=== PATIENT | female | born 1950 | race Caucasian/White ===

== ENCOUNTER 2017-09-05 11:22 | Outpatient (CLI) | payer MEDICARE ==
[2017-09-05 17:54] LABS: BASOPHILS # (AUTO) 0.1 10^3/uL (0.0-0.1); BASOPHILS % (AUTO) 1.2 %; EOSINOPHILS # (AUTO) 0.7 10^3/uL (0.0-0.7); EOSINOPHILS % (AUTO) 9.2 %; HCT - HEMATOCRIT 38.5 % (37.0-47.0); HGB - HEMOGLOBIN 13.2 g/dL (12.0-16.0); LYMPHOCYTES # (AUTO) 1.8 10^3/uL (1.5-3.5); LYMPHOCYTES % (AUTO) 25.6 %; MEAN CORPUSCULAR HEMOGLOBIN 30.9 pg (27.0-31.0); MEAN CORPUSCULAR HGB CONC 34.3 g/dL (32.0-36.0); MEAN CORPUSCULAR VOLUME 90.1 fL (81.0-99.0); MEAN PLATELET VOLUME 7.9 fL (7.9-10.8); MONOCYTES # (AUTO) 0.6 10^3/uL (0.0-1.0); MONOCYTES % (AUTO) 8.5 %; NEUTROPHILS % (AUTO) 55.5 %; NUCLEATED RED BLOOD CELLS AUTO 0.2 /100WBC; RED BLOOD COUNT 4.28 10^6/uL (4.20-5.40); RED CELL DISTRIBUTION WIDTH 15.7 % (12.0-15.0); UNCORRECTED WHITE BLOOD COUNT 7.2 x10^3/uL; WHITE BLOOD COUNT 7.2 x10^3/uL (4.8-10.8)
[2017-09-05 18:05] LABS: BILIRUBIN,TOTAL 0.7 mg/dL (0.2-1.0); BUN - BLOOD UREA NITROGEN 23 mg/dL (6-20); CALCIUM 9.7 mg/dL (8.5-10.3); CARBON DIOXIDE - CO2 28 mmol/L (21-32); CHLORIDE 95 mmol/L (101-111); CHOL/HDL RATIO 4.3 (<4.4); CHOLESTEROL 228 mg/dL; CREATININE 1.2 mg/dL (0.4-1.0); GFR - MDRD 45 (>89); GLUCOSE 122 mg/dL (70-100); HDL CHOLESTEROL 53 mg/dL; LDL/HDL RATIO 2.7 (<4.4); POTASSIUM 2.9 mmol/L (3.5-5.0); SODIUM 135 mmol/L (135-145); TOTAL PROTEIN 8.5 g/dL (6.7-8.2); TRIGLYCERIDES 171 mg/dL; VLDL CHOLESTEROL 34 mg/dL
== END 2017-09-05 11:23 | disposition home or self-care (01) ==
LOC: LAB.F 11:22
PROVIDERS: ATTEND Physician Assistant Medical
DX: E78.5 Hyperlipidemia, unspecified (principal); K21.9 Gastro-esophageal reflux disease without esophagitis
CPT/HCPCS: 36415; 80053; 80061; 85025

== ENCOUNTER 2017-11-15 18:00 | Outpatient (CLI) | payer MEDICARE ==
[2017-11-15 18:48] LABS: CALCIUM 9.4 mg/dL (8.5-10.3); CREATININE 1.2 mg/dL (0.4-1.0)
== END 2017-11-15 18:01 | disposition home or self-care (01) ==
LOC: LAB.R 18:00
PROVIDERS: ATTEND Physician Assistant Medical
DX: E87.6 Hypokalemia (principal)
CPT/HCPCS: 80048

== ENCOUNTER 2019-09-03 15:33 | Outpatient (CLI) | payer MEDICARE ==
--- NOTE | 2019-09-04 16:05 | XRAY Report ---
Reason: COUGH Procedure Date: 09/03/2019 Accession Number: [id number] / [id number] Procedure: WCP - Chest 2 View X-Ray CPT Code: 79728 Final Report FULL RESULT: EXAM: CHEST RADIOGRAPHY EXAM DATE: 09/03/2019 03:33 PM. CLINICAL HISTORY: COUGH. COMPARISON: XR CHEST PA AND LAT 04/08/2009 1:26 PM. TECHNIQUE: 2 views. FINDINGS: Lungs/Pleura: No evidence of lobar infiltrate. There is left costophrenic sulcus opacity which may represent small pleural effusion. No direct evidence of lung edema. There is no pneumothorax. Mediastinum: There is cardiomegaly. Other: There is bilateral shoulder degenerative disease. IMPRESSION: 1. There is cardiomegaly. 2. There is left costophrenic sulcus blunting which is suspicious for small effusion. 3. No evidence of lobar infiltrate. 4. There is no pneumothorax. RADIA
== END 2019-09-03 23:59 | disposition home or self-care (01) ==
LOC: DI.WCP 15:33
PROVIDERS: ATTEND Nurse Practitioner Family
DX: R05 Cough (principal); I51.7 Cardiomegaly
CPT/HCPCS: 71046

== ENCOUNTER 2019-09-06 18:33 | Outpatient (CLI) | payer MEDICARE | END 2019-09-06 23:59 | disposition short-term general hospital (02) | LOC: EMS 18:33 | PROVIDERS: ATTEND Surgery | DX: R06.02 Shortness of breath (principal) | CPT/HCPCS: A0425; A0427 ==

== ENCOUNTER 2019-09-22 14:19 | Outpatient (CLI) | payer MEDICARE ==
[2019-09-22 17:28] LABS: ALBUMIN 4.5 g/dL (3.2-5.5); ALBUMIN/GLOBULIN RATIO 1.3 (1.0-2.2); BILIRUBIN,TOTAL 0.7 mg/dL (0.2-1.0); CALCIUM 9.4 mg/dL (8.5-10.3); CREATININE 1.2 mg/dL (0.4-1.0)
[2019-09-22 17:47] LABS: BASOPHILS # (AUTO) 0.1 10^3/uL (0.0-0.1); BASOPHILS % (AUTO) 1.1 %; EOSINOPHILS # (AUTO) 0.2 10^3/uL (0.0-0.7); HGB - HEMOGLOBIN 11.4 g/dL (12.0-16.0); LYMPHOCYTES # (AUTO) 0.7 10^3/uL (1.5-3.5); MEAN CORPUSCULAR HEMOGLOBIN 29.2 pg (27.0-31.0); MEAN CORPUSCULAR HGB CONC 30.2 g/dL (32.0-36.0); MEAN CORPUSCULAR VOLUME 96.4 fL (81.0-99.0); MONOCYTES # (AUTO) 0.5 10^3/uL (0.0-1.0); MONOCYTES % (AUTO) 8.9 %; NEUTROPHILS # (AUTO) 3.8 10^3/uL (1.5-6.6); NEUTROPHILS % (AUTO) 71.8 %; PLT - PLATELET COUNT 313 10^3/uL (130-450); RED BLOOD COUNT 3.91 10^6/uL (4.20-5.40); RED CELL DISTRIBUTION WIDTH 17.9 % (12.0-15.0); WHITE BLOOD COUNT 5.3 x10^3/uL (4.8-10.8)
== END 2019-09-22 14:20 | disposition home or self-care (01) ==
LOC: LAB.S 14:19
PROVIDERS: ATTEND Nurse Practitioner Family
DX: I50.9 Heart failure, unspecified (principal)
CPT/HCPCS: 36415; 80053; 85025

== ENCOUNTER 2019-10-10 13:47 | Outpatient (CLI) | payer MEDICARE ==
[2019-10-10 17:59] LABS: CALCIUM 9.7 mg/dL (8.5-10.3); CREATININE 1.5 mg/dL (0.4-1.0)
== END 2019-10-10 13:48 | disposition home or self-care (01) ==
LOC: LAB.S 13:47
PROVIDERS: ATTEND Nurse Practitioner
DX: I42.8 Other cardiomyopathies (principal); E78.5 Hyperlipidemia, unspecified
CPT/HCPCS: 36415; 80048

== ENCOUNTER 2019-10-20 15:03 | Outpatient (CLI) | payer MEDICARE ==
[2019-10-20 18:19] LABS: CALCIUM 10.1 mg/dL (8.5-10.3); CREATININE 1.4 mg/dL (0.4-1.0)
== END 2019-10-20 15:04 | disposition home or self-care (01) ==
LOC: LAB.S 15:03
PROVIDERS: ATTEND Physician Assistant
DX: N28.9 Disorder of kidney and ureter, unspecified (principal)
CPT/HCPCS: 36415; 80048

== ENCOUNTER 2019-11-27 13:16 | Outpatient (CLI) | payer MEDICARE ==
[2019-11-27 17:41] LABS: BUN - BLOOD UREA NITROGEN 15 mg/dL (6-20); CALCIUM 9.7 mg/dL (8.5-10.3); CARBON DIOXIDE - CO2 23 mmol/L (21-32); CHLORIDE 108 mmol/L (101-111); CHOL/HDL RATIO 2.5 (<4.4); CHOLESTEROL 160 mg/dL; CREATININE 1.2 mg/dL (0.4-1.0); GFR - MDRD 45 (>89); GLUCOSE 101 mg/dL (70-100); HDL CHOLESTEROL 65 mg/dL; LDL CHOLESTEROL,CALCULATED 68 mg/dL; SODIUM 143 mmol/L (135-145); VLDL CHOLESTEROL 27 mg/dL
== END 2019-11-27 13:17 | disposition home or self-care (01) ==
LOC: LAB.S 13:16
PROVIDERS: ATTEND Internal Medicine
DX: E78.5 Hyperlipidemia, unspecified (principal)
CPT/HCPCS: 36415; 80048; 80061; 83721

== ENCOUNTER 2020-02-02 08:00 | Outpatient (CLI) | payer MEDICARE ==
[2020-02-02 14:34] LABS: ALBUMIN 3.9 g/dL (3.2-5.5); ALBUMIN/GLOBULIN RATIO 1.1 (1.0-2.2); ALKALINE PHOSPHATASE 57 IU/L (42-121); ALT ALANINE AMINOTRANSFERASE 11 IU/L (10-60); AST ASPARTATE AMINOTRANSFERASE 18 IU/L (10-42); BILIRUBIN,TOTAL 0.7 mg/dL (0.2-1.0); BUN - BLOOD UREA NITROGEN 35 mg/dL (6-20); CALCIUM 9.7 mg/dL (8.5-10.3); CARBON DIOXIDE - CO2 24 mmol/L (21-32); CHLORIDE 104 mmol/L (101-111); CHOL/HDL RATIO 2.9 (<4.4); CHOLESTEROL 133 mg/dL; CREATININE 1.6 mg/dL (0.4-1.0); GLUCOSE 119 mg/dL (70-100); HDL CHOLESTEROL 46 mg/dL; LDL CHOLESTEROL,CALCULATED 51 mg/dL; LDL/HDL RATIO 1.1 (<4.4); SODIUM 137 mmol/L (135-145); TOTAL PROTEIN 7.6 g/dL (6.7-8.2); VLDL CHOLESTEROL 36 mg/dL
== END 2020-02-02 23:59 | disposition home or self-care (01) ==
LOC: LAB.WCP 08:00
PROVIDERS: ATTEND Physician Assistant Medical
DX: I21.3 ST elevation (STEMI) myocardial infarction of unspecified site (principal)
CPT/HCPCS: 36415; 80053; 80061; 83721

== ENCOUNTER 2020-04-28 14:54 | Outpatient (CLI) | payer MEDICARE ==
--- NOTE | 2020-04-28 17:03 | DEXA Report ---
Reason: POSTMENOPAUSAL Procedure Date: 04/28/2020 Accession Number: [id number] / [id number] Procedure: DEX - Dexa Spine and/or Hip CPT Code: Final Report FULL RESULT: PROCEDURE: Dexa Spine and/or Hip INDICATIONS: POSTMENOPAUSAL TECHNIQUE: Dual energy x-ray absorptiometry (DXA) was performed on a [email or web address] System. Regions measured are the AP Spine, femoral neck, and if needed forearm. COMPARISON: None. FINDINGS: Lumbar Spine: Bone Mineral Density 1.485 g/cm/cm,T score 2.5, normal Left Hip: Bone Mineral Density 1.303 g/cm/cm,T score 2.3, normal Left Femoral Neck: Bone Mineral Density 1.315 g/cm/cm, T score 2.0, normal (T score greater or equal to -1.0: NORMAL) (T score from -1.1 to -2.4: OSTEOPENIA) (T score less than or equal to -2.5 to: OSTEOPOROSIS) Impression: 1. Normal bone mineral density. 2. No elevated fracture risk. Patients with diagnosis of osteoporosis or osteopenia should have regular bone mineral density assessment. For those eligible for Medicare, routine testing is allowed once every 2 years. Testing frequency can be increased for patients who have rapidly progressing disease or for those who are receiving medical therapy to restore bone mass. Reviewed by: Nita Pierce MD on 04/28/2020 5:01 PM PDT Approved by: Nita Pierce MD on 04/28/2020 5:01 PM PDT Station ID: [id number]
== END 2020-04-28 14:55 | disposition home or self-care (01) ==
LOC: DI 14:54
PROVIDERS: ATTEND Physician Assistant Medical
DX: Z78.0 Asymptomatic menopausal state (principal)
CPT/HCPCS: 77080

== ENCOUNTER 2020-06-27 10:46 | Outpatient (CLI) | payer MEDICARE | END 2020-06-27 10:47 | disposition critical access hospital (66) | LOC: EMS 10:46 | PROVIDERS: ATTEND Surgery | DX: R40.20 Unspecified coma (principal) | CPT/HCPCS: A0425; A0427 ==

== ENCOUNTER 2020-06-27 11:04 | Inpatient (IN) | payer MEDICARE ==
[2020-06-27] MEDS ORDERED: SODIUM CHLORIDE 0.9% 1,000 ML IV STA ×2 (11:18→11:29)
[2020-06-27] MEDS ORDERED: FLUMAZENIL 0.1 MG/1 ML 5 ML MDV IVP STA (11:24)
--- NOTE | 2020-06-27 11:27 | ED Physician Documentation ---
PD HPI ALTERED MENTAL STATUS - Stated complaint Stated Complaint: UNRESPONSIVE - Chief complaint Chief Complaint: Cardiac - History obtained from History obtained from: EMS - History of Present Illness Timing - onset: Today Timing - duration: Hours Timing - details: Gradual onset, Still present Quality / character: Unresponsive Associated symptoms: NVD Contributing factors: Recent illness. No: Anticoagulated, Diabetic Basline status: Alert and oriented X 3, Bedbound Similar symptoms before: Has not had sx before Recently seen: Not recently seen - Additional information Additional information: 70-year-old morbidly obese bedbound patient has developed nausea vomiting and diarrhea 2 days ago and last night was feeling some better and took her nighttime sleep medications and this morning she is not waking up. Medics arrived to find the patient with blood pressure in the 50s and the patient responsive only to hard sternal rub. The patient is breathing normally maintaining her airway but is unresponsive. She does take 2 mg of Xanax and temazepam at night for sleep. The indicates that she has had this recent illness her stool is black and she he has been giving her Pepto-Bismol. She has not had prior incident of GI bleeding to his knowledge. She has had a prior severe illness related to a blood draw 10 years ago that resulted in a se ptic infection. She took some time to recover from that and has never fully recovered. She was last seen by her residential caregiver and has not had blood drawn for about 1 year. She had a stent placed about 11 months ago at [facility]. Review of Systems Unable to obtain: Unresponsive Constitutional: denies: Fever Nose: denies: Congestion Cardiac: denies: Chest pain / pressure Respiratory: denies: Dyspnea, Cough GI: reports: Abdominal Pain, Nausea, Vomiting, Diarrhea, Bloody / black stool : denies: Dysuria, Frequency PD PAST MEDICAL HISTORY - Present Medications Home Medications: Ambulatory Orders Medication Instructions Recorded Confirmed Calcium Carbonate [Calcium] 1 tab PO DAILY 01/19/14 08/07/16 Cholecalciferol (Vitamin D3) 2,000 unit PO DAILY 01/19/14 08/07/16 [Vitamin D-3] Cinnamon Bark [Cinnamon] 500 mg PO BID 01/19/14 08/07/16 Cyanocobalamin (Vitamin B-12) 50 mcg PO DAILY 01/19/14 08/07/16 [Vitamin B-12] Flaxseed Oil 1 cap PO DAILY 01/19/14 08/07/16 Lactobacillus Combo No.6 1 each PO DAILY 01/19/14 08/07/16 [Probiotic Complex] Multivitamin [Multivitamins] 1 each PO DAILY 01/19/14 08/07/16 [place]-3 Fatty Acids/Fish Oil [Fish 1 each PO DAILY 01/19/14 08/07/16 Oil Softgel] Pantoprazole Sodium 40 mg PO DAILY 01/19/14 08/07/16 Propranolol [Inderal] 60 mg PO BID 01/19/14 08/07/16 Red Yeast Rice 600 mg PO DAILY 01/19/14 08/07/16 Temazepam 30 mg PO HS 01/19/14 08/07/16 Topiramate [Topamax] 25 mg PO BID 01/19/14 08/07/16 Verapamil HCl [Verapamil ER] 120 mg PO BID 01/19/14 08/07/16 Diclofenac Sodium [Voltaren] 1 drop TOP QID PRN 07/20/14 08/07/16 - Allergies Allergies/Adverse Reactions: Allergies Allergy/AdvReac Type Severity Reaction Status Date / Time No Known Drug Allergies Allergy Verified 06/27/20 11:17 PD ED PE NORMAL - Vitals Vital signs reviewed: Yes (normal ) - General General: Other (obese pale appearing female sleeping peacefully gives a grimmace to sternal rub and opens eyes to voice after administration of romazicon) - HEENT HEENT: Atraumatic, PERRL, EOMI - Cardiac Cardiac: RRR, No murmur - Respiratory Respiratory: No respiratory distress, Clear bilaterally - Abdomen Abdomen: Normal bowel sounds, Soft, Non tender - Rectal Rectal: Other (normal sphincter tone black stool is guiac positive) - Back Back: No CVA TTP - Derm Derm: Normal color, Warm and dry, No rash - Extremities Extremities: No deformity, No edema - Neuro Neuro: Other (unresponsive puplis reactive respritory drive intact ) Results - Vitals Vitals: Vital Signs - 24 hr 06/27/20 06/27/20 06/27/20 11:08 11:09 11:15 Temperature 35.4 C L Heart Rate 61 53 L 62 Respiratory 17 18 Rate Blood Pressure 102/63 102/63 102/63 O2 Saturation 100 99 100 06/27/20 06/27/20 06/27/20 11:19 11:30 11:36 Temperature Heart Rate 60 63 64 Respiratory 18 18 17 Rate Blood Pressure 102/63 118/86 H 67/38 L O2 Saturation 100 100 100 06/27/20 06/27/20 06/27/20 11:38 11:39 11:43 Temperature 34.5 C L Heart Rate 62 62 63 Respiratory 18 18 21 Rate Blood Pressure 70/33 L 70/33 L 68/33 L O2 Saturation 100 100 100 06/27/20 06/27/20 06/27/20 11:45 11:47 11:50 Temperature 34.4 C L 34.5 C L Heart Rate 63 66 65 Respiratory 19 20 19 Rate Blood Pressure 68/33 L 71/38 L 70/36 L O2 Saturation 100 100 100 06/27/20 06/27/20 06/27/20 11:53 11:55 11:56 Temperature 34.5 C L 34.5 C L 34.5 C L Heart Rate 64 64 60 Respiratory 19 19 22 Rate Blood Pressure 68/31 L 72/31 L 72/31 L O2 Saturation 100 100 100 06/27/20 06/27/20 06/27/20 12:00 12:05 12:10 Temperature 34.5 C L 34.5 C L 34.5 C L Heart Rate 67 68 65 Respiratory 17 20 19 Rate Blood Pressure 85/47 L 76/41 L 72/36 L O2 Saturation 100 100 100 06/27/20 06/27/20 06/27/20 12:11 12:15 12:30 Temperature 34.5 C L 34.5 C L Heart Rate 66 65 71 Respiratory 18 18 20 Rate Blood Pressure 76/41 L 75/36 L 70/41 L O2 Saturation 100 100 06/27/20 06/27/20 06/27/20 12:33 12:35 12:39 Temperature 34.5 C L 34.5 C L 34.5 C L Heart Rate 65 65 Respiratory 18 19 Rate Blood Pressure 75/41 L 79/45 L O2 Saturation 100 100 06/27/20 06/27/20 12:44 12:45 Temperature 34.5 C L 34.6 C L Heart Rate 65 64 Respiratory 19 19 Rate Blood Pressure 79/42 L 79/41 L O2 Saturation 100 100 Oxygen O2 Source Non-rebreather mask - EKG (time done) 1114 Rate: Rate (enter#) (62) Intervals: Prolonged [place] Ischemia: Q waves (consistent with prior inferior and anterior infarts) Other comments: Other comments (subtle ST elevation in II, III and aVf) Compare to prior EKG: Old EKG unavailable Computer interpretation: Agree with computer - Labs Labs: Laboratory Tests 06/27/20 06/27/20 06/27/20 11:20 11:20 11:33 WBC 8.3 RBC 1.66 L Hgb 4.2 L* Hct 14.6 L* MCV 88.0 MCH 25.3 L MCHC 28.8 L RDW 19.8 H Plt Count 223 MPV 10.0 Neut # (Auto) 6.7 H Lymph # (Auto) 0.9 L [place] # (Auto) 0.7 Eos # (Auto) 0.0 Baso # (Auto) 0.0 Absolute Nucleated RBC 0.00 Nucleated RBC % 0.0 Sodium 137 Potassium 5.4 H Chloride 105 Carbon Dioxide 17 L Anion Gap 15.0 H BUN 70 H Creatinine 2.3 H Estimated GFR (MDRD) 21 L Glucose 104 H Lactic Acid Calcium 8.9 Total Bilirubin 0.5 AST 107 H ALT 125 H Alkaline Phosphatase 35 L Total Protein 5.3 L Albumin 2.8 L Globulin 2.5 Albumin/Globulin Ratio 1.1 Lipase 29 TSH Urine Color YELLOW Urine Clarity HAZY Urine pH 5.5 Ur Specific [place] 1.015 Urine Protein NEGATIVE Urine Glucose (UA) NEGATIVE Urine Ketones NEGATIVE Urine Occult Blood NEGATIVE Urine Nitrite NEGATIVE Urine Bilirubin NEGATIVE Urine Urobilinogen 0.2 (NORMAL) Ur Leukocyte Esterase LARGE H Urine RBC 0-5 Urine WBC 4-5 Urine WBC Clumps PRESENT Ur Epithelial Cells RARE Renal Tubular Ur Squamous Epith Cells RARE Squamous Amorphous Sediment Marked Urine Bacteria Many H Urine Casts 6-10 Hyaline Casts Ur Microscopic Review INDICATED Urine Culture Comments INDICATED Stl Occult Blood (IFOB) Salicylates < 6.0 Urine Opiates Screen NEGATIVE Ur Oxycodone Screen NEGATIVE Urine Methadone Screen NEGATIVE Ur Propoxyphene Screen NEGATIVE Acetaminophen < 10 L Ur Barbiturates Screen NEGATIVE Ur Tricyclics Screen NEGATIVE Ur Phencyclidine Scrn NEGATIVE Ur Amphetamine Screen NEGATIVE U Methamphetamines Scrn NEGATIVE U Benzodiazepines Scrn POSITIVE H Urine Cocaine Screen NEGATIVE U Cannabinoids Screen NEGATIVE Ethyl Alcohol < 5.0 Blood Type Blood Type Recheck Antibody Screen Crossmatch IS Only 06/27/20 06/27/20 06/27/20 11:40 11:40 11:51 WBC RBC Hgb Hct MCV MCH MCHC RDW Plt Count MPV Neut # (Auto) Lymph # (Auto) [place] # (Auto) Eos # (Auto) Baso # (Auto) Absolute Nucleated RBC Nucleated RBC % Sodium Potassium Chloride Carbon Dioxide Anion Gap BUN Creatinine Estimated GFR (MDRD) Glucose Lactic Acid 3.3 H* Calcium Total Bilirubin AST ALT Alkaline Phosphatase Total Protein Albumin Globulin Albumin/Globulin Ratio Lipase TSH 1.29 Urine Color Urine Clarity Urine pH Ur Specific [place] Urine Protein Urine Glucose (UA) Urine Ketones Urine Occult Blood Urine Nitrite Urine Bilirubin Urine Urobilinogen Ur Leukocyte Esterase Urine RBC Urine WBC Urine WBC Clumps Ur Epithelial Cells Ur Squamous Epith Cells Amorphous Sediment Urine Bacteria Urine Casts Ur Microscopic Review Urine Culture Comments Stl Occult Blood (IFOB) Salicylates Urine Opiates Screen Ur Oxycodone Screen Urine Methadone Screen Ur Propoxyphene Screen Acetaminophen Ur Barbiturates Screen Ur Tricyclics Screen Ur Phencyclidine Scrn Ur Amphetamine Screen U Methamphetamines Scrn U Benzodiazepines Scrn Urine Cocaine Screen U Cannabinoids Screen Ethyl Alcohol Blood Type A POSITIVE Blood Type Recheck Antibody Screen NEGATIVE Crossmatch IS Only See Detail 06/27/20 06/27/20 11:52 12:50 WBC RBC Hgb Hct MCV MCH MCHC RDW Plt Count MPV Neut # (Auto) Lymph # (Auto) [place] # (Auto) Eos # (Auto) Baso # (Auto) Absolute Nucleated RBC Nucleated RBC % Sodium Potassium Chloride Carbon Dioxide Anion Gap BUN Creatinine Estimated GFR (MDRD) Glucose Lactic Acid Calcium Total Bilirubin AST ALT Alkaline Phosphatase Total Protein Albumin Globulin Albumin/Globulin Ratio Lipase TSH Urine Color Urine Clarity Urine pH Ur Specific [place] Urine Protein Urine Glucose (UA) Urine Ketones Urine Occult Blood Urine Nitrite Urine Bilirubin Urine Urobilinogen Ur Leukocyte Esterase Urine RBC Urine WBC Urine WBC Clumps Ur Epithelial Cells Ur Squamous Epith Cells Amorphous Sediment Urine Bacteria Urine Casts Ur Microscopic Review Urine Culture Comments Stl Occult Blood (IFOB) POSITIVE A Salicylates Urine Opiates Screen Ur Oxycodone Screen Urine Methadone Screen Ur Propoxyphene Screen Acetaminophen Ur Barbiturates Screen Ur Tricyclics Screen Ur Phencyclidine Scrn Ur Amphetamine Screen U Methamphetamines Scrn U Benzodiazepines Scrn Urine Cocaine Screen U Cannabinoids Screen Ethyl Alcohol Blood Type Blood Type Recheck A POSITIVE Antibody Screen Crossmatch IS Only Procedures - IVC sono (time) 1128 Bedside IVC sono: IVC measures (cm) (0.88), IVC collapsed c insp (cm) (complete), Dehydration (est 2 liter deficit after 500ml is in) PD MEDICAL DECISION MAKING - ED course Complexity details: reviewed old records, reviewed results, re-evaluated patient, considered differential, d/w family, d/w toy consultant ([facility] surgery recommends admission to the CCU and scoping today. ) ED course: 70-year-old female found unresponsive today is pale and hypotensive with guaiac positive stool and a profoundly low H&H. She is resuscitated in the emergency department with saline and O- blood is transfused. She is given a dose of Romazicon here in the emergency department and she does respond to this with eye opening and interaction. The case is discussed with the surgeon he recommends admission for scoping today. Her blood pressure is soft throughout her stay here in the emergency department she arrives with a blood pressure of 53 she has improvement to in the 70s and up to 114 with the first liter of saline blood pressure drops back into the 70s and she is administered the O- blood with a rise up into the upper 70s.Dr. Dominguez is consulted in the case and recommends admission to the intensive care unit and Dr. Zhu has indicated he would like to scope the patient today. The patient meets criteria for sepsis by vitals but appears to be ill with a GI bleed and her source of infection potentially being urine with bacteria in a cath specimen without leukocytes in the urine. Departure - Departure Disposition: 66 [facility] DC/Xfer Clinical Impression: GI bleeding Qualifiers: GI bleed type/associated pathology: melena Qualified Code(s): K92.1 - Melena Condition: Critical
[2020-06-27 11:35] LABS: BASOPHILS % (AUTO) 0.1 %; MEAN CORPUSCULAR HEMOGLOBIN 25.3 pg (27.0-31.0)
[2020-06-27 11:43] LABS: ACETAMINOPHEN < 10 ug/mL (10-30); ALBUMIN 2.8 g/dL (3.2-5.5); ALBUMIN/GLOBULIN RATIO 1.1 (1.0-2.2); ALKALINE PHOSPHATASE 35 IU/L (42-121); ALT ALANINE AMINOTRANSFERASE 125 IU/L (10-60); AST ASPARTATE AMINOTRANSFERASE 107 IU/L (10-42); BILIRUBIN,TOTAL 0.5 mg/dL (0.2-1.0); BUN - BLOOD UREA NITROGEN 70 mg/dL (6-20); CALCIUM 8.9 mg/dL (8.5-10.3); CARBON DIOXIDE - CO2 17 mmol/L (21-32); CHLORIDE 105 mmol/L (101-111); CREATININE 2.3 mg/dL (0.4-1.0); GLUCOSE 104 mg/dL (70-100); LIPASE 29 U/L (22-51); SALICYLATE < 6.0 mg/dL; SODIUM 137 mmol/L (135-145); TOTAL PROTEIN 5.3 g/dL (6.7-8.2)
[2020-06-27 11:45] LABS: EOSINOPHILS % (AUTO) 0.1 %; LYMPHOCYTES # (AUTO) 0.9 10^3/uL (1.5-3.5); LYMPHOCYTES % (AUTO) 10.8 %; MEAN CORPUSCULAR HGB CONC 28.8 g/dL (32.0-36.0); MONOCYTES # (AUTO) 0.7 10^3/uL (0.0-1.0); NEUTROPHILS # (AUTO) 6.7 10^3/uL (1.5-6.6); NEUTROPHILS % (AUTO) 80.5 %; PLT - PLATELET COUNT 223 10^3/uL (130-450); RED BLOOD COUNT 1.66 10^6/uL (4.20-5.40); RED CELL DISTRIBUTION WIDTH 19.8 % (12.0-15.0); WHITE BLOOD COUNT 8.3 x10^3/uL (4.8-10.8)
[2020-06-27 12:00] LABS: HGB - HEMOGLOBIN 4.2 g/dL (12.0-16.0)
[2020-06-27 12:00] LABS: MUDS CUTOFF CONCENTRATIONS CUTOFF CONC BELOW:
[2020-06-27 12:02] LABS: BILIRUBIN,URINE NEGATIVE (NEGATIVE); GLUCOSE, URINE (UA) NEGATIVE (NEGATIVE); KETONES,URINE (UA) NEGATIVE (NEGATIVE); LEUKOCYTE ESTERASE, URINE LARGE (NEGATIVE); NITRITE,URINE NEGATIVE (NEGATIVE); OCCULT BLOOD,URINE NEGATIVE (NEGATIVE); PH,URINE 5.5 PH (5.0-7.5); PROTEIN,URINE NEGATIVE (NEGATIVE); UROBILINOGEN,URINE 0.2 (NORMAL) E.U./dL (NORMAL)
--- NOTE | 2020-06-27 12:17 | XRAY Report ---
PROCEDURE: Chest 1 View X-Ray INDICATIONS: chest pain TECHNIQUE: One view of the chest was acquired. COMPARISON: 09/03/19 FINDINGS: Surgical changes and devices: None. Lungs and pleura: On the supine study, no large pneumothorax or large pleural effusions can be seen. No focal infiltrates are detected. Low lung volumes can be seen, causing a crowded appearance to t he lung markings. Mediastinum: The aorta is prominent and tortuous. The cardiac contours are mildly enlarged. Bones and chest wall: No suspicious bony lesions. Age-appropriate degenerative changes are seen. Mild dextroconvex scoliotic curvature is seen. Overlying soft tissues appear unremarkable. IMPRESSION: Mild cardiomegaly, without an additional significant abnormality seen on this supine plain film. Reviewed by: Bharathi Schultz MD on 06/27/2020 11:15 AM OMAR Approved by: Bharathi Schultz MD on 06/27/2020 11:15 AM OMAR Station ID: [id number]
[2020-06-27 12:21] LABS: CLARITY,URINE HAZY (CLEAR)
[2020-06-27 12:27] LABS: AMORPHOUS SEDIMENT,UR Marked /LPF; BACTERIA,URINE Many /HPF (None Seen); EPITHELIAL CELLS,UR RARE Renal Tubular /HPF (<= Few); RBC,URINE 0-5 /HPF (0-5); SQUAMOUS EPITHELIAL CELL,UR RARE Squamous (<= Few); WBC CLUMPS,URINE PRESENT
[2020-06-27 12:28] LABS: CASTS, URINE 6-10 Hyaline Casts /LPF
[2020-06-27 12:30] LABS: AMPHETAMINE SCREEN,URINE NEGATIVE (NEGATIVE); BENZODIAZEPINES SCREEN, URINE POSITIVE (NEGATIVE); COCAINE SCREEN URINE NEGATIVE (NEGATIVE); METHADONE SCREEN, URINE NEGATIVE (NEGATIVE); METHAMPHETAMINES SCREEN, URINE NEGATIVE (NEGATIVE); OPIATE SCREEN, URINE NEGATIVE (NEGATIVE); OXYCODONE SCREEN, URINE NEGATIVE (NEGATIVE); PROPOXYPHENE SCREEN, URINE NEGATIVE (NEGATIVE); TRICYCLIC ANTIDEPRESSANT,URINE NEGATIVE (NEGATIVE)
[2020-06-27] MEDS ORDERED: ONDANSETRON 4 MG/2 ML VIAL IVP PRN (12:52)
--- NOTE | 2020-06-27 12:58 | CONSULTATION NOTE ---
Referring Provider Name of Referring Provider:: Dr. Shameka Pradhan MD Consult Date: 06/27/20 Chief Complaint - Chief Complaint Chief Complaint: Hemorrhagic shock and gastrointestinal bleeding History of Present Illness - Admitted From Admitted From:: HOME - History Obtained From Records Reviewed: EMR History obtained from: Exam Limitations: Patient minimally responsive - History of Present Illness HPI Comment/Other: 70-year-old female with history of coronary artery disease status post relatively recent cardiac stenting to the mid LAD. On dual antiplatelet therapy. Patient is minimally ambulatory, superobese and mostly bedbound. Cared for by who reported the patient had been unresponsive this a.m. after having taken her sedatives. Seen in ER with hemoglobin of 8 emergently transfused and called for consultation. Historically noted for ulcerations. Currently not on any proton pump inhibition. History - Past Medical History Cardiovascular: reports: Hypertension, High cholesterol, Coronary artery disease, Peripheral Vascular Disease, [place] Respiratory: reports: None Neuro: reports: None GI: reports: GERD HEENT: reports: Chronic vision loss, Other Psych: reports: Depression, Anxiety Derm: reports: None - Past Surgical History Cardiovascular: reports: Coronary stent Meds/Allgy - Home Medications Home Medications: Ambulatory Orders Medication Instructions Recorded Confirmed Calcium Carbonate [Calcium] 1 tab PO DAILY 01/19/14 08/07/16 Cholecalciferol (Vitamin D3) 2,000 unit PO DAILY 01/19/14 08/07/16 [Vitamin D-3] Cinnamon Bark [Cinnamon] 500 mg PO BID 01/19/14 08/07/16 Cyanocobalamin (Vitamin B-12) 50 mcg PO DAILY 01/19/14 08/07/16 [Vitamin B-12] Flaxseed Oil 1 cap PO DAILY 01/19/14 08/07/16 Lactobacillus Combo No.6 1 each PO DAILY 01/19/14 08/07/16 [Probiotic Complex] Multivitamin [Multivitamins] 1 each PO DAILY 01/19/14 08/07/16 [place]-3 Fatty Acids/Fish Oil [Fish 1 each PO DAILY 01/19/14 08/07/16 Oil Softgel] Pantoprazole Sodium 40 mg PO DAILY 01/19/14 08/07/16 Propranolol [Inderal] 60 mg PO BID 01/19/14 08/07/16 Red Yeast Rice 600 mg PO DAILY 01/19/14 08/07/16 Temazepam 30 mg PO HS 01/19/14 08/07/16 Verapamil HCl [Verapamil ER] 120 mg PO BID 01/19/14 08/07/16 Diclofenac Sodium [Voltaren] 1 drop TOP QID PRN 07/20/14 08/07/16 ALPRAZolam [Alprazolam] 1 mg PO BID 06/27/20 Atorvastatin Calcium 80 mg PO DAILY 06/27/20 Carvedilol 12.5 mg PO BID 06/27/20 Clopidogrel [Plavix] 75 mg PO DAILY 06/27/20 Furosemide 40 mg PO DAILY 06/27/20 Losartan Potassium 25 mg PO DAILY 06/27/20 Meloxicam 7.5 mg PO BID 06/27/20 Potassium Chloride 20 meq PO BID 06/27/20 Pregabalin [Lyrica] 0 mg PO BID 06/27/20 Topiramate 50 mg PO BID 06/27/20 tiZANidine [Zanaflex] 4 mg PO TID 06/27/20 - Allergies Allergies/Adverse Reactions: Allergies Allergy/AdvReac Type Severity Reaction Status Date / Time No Known Drug Allergies Allergy Verified 06/27/20 11:17 Exam - Vital Signs Reviewed Vital Signs: Yes Vital Signs: Vital Signs x48h Temp Pulse Resp BP Pulse Ox 06/27/20 12:54 34.6 C L 63 18 78/43 L 06/27/20 12:45 34.6 C L 64 19 79/41 L 06/27/20 12:44 34.5 C L 65 19 79/42 L 06/27/20 12:39 34.5 C L 65 19 79/45 L 06/27/20 12:35 34.5 C L 65 18 75/41 L 06/27/20 12:33 34.5 C L 06/27/20 12:30 71 20 70/41 L 06/27/20 12:15 34.5 C L 65 18 75/36 L 06/27/20 12:11 34.5 C L 66 18 76/41 L 06/27/20 12:10 34.5 C L 65 19 72/36 L 06/27/20 12:05 34.5 C L 68 20 76/41 L 06/27/20 12:00 34.5 C L 67 17 85/47 L 06/27/20 11:56 34.5 C L 60 22 72/31 L 06/27/20 11:55 34.5 C L 64 19 72/31 L 06/27/20 11:53 34.5 C L 64 19 68/31 L 06/27/20 11:50 34.5 C L 65 19 70/36 L 06/27/20 11:47 34.4 C L 66 20 71/38 L 06/27/20 11:45 63 19 68/33 L 06/27/20 11:43 63 21 68/33 L 06/27/20 11:39 34.5 C L 62 18 70/33 L 06/27/20 11:38 62 18 70/33 L 06/27/20 11:36 64 17 67/38 L 06/27/20 11:30 63 18 118/86 H 06/27/20 11:19 60 18 102/63 06/27/20 11:15 62 18 102/63 06/27/20 11:09 53 L 102/63 99 06/27/20 11:08 35.4 C L 61 17 102/63 100 - Physical Exam General Appearance: positive: Moderate distress, Severe distress, Other (Morbidly obese female in distress) Eyes Bilateral: positive: Normal inspection, PERRL, EOMI ENT: positive: ENT inspection nml Neck: positive: Nml inspection Respiratory: positive: No respiratory distress, Breath sounds nml. negative: Wheezes, Rales, Rhonchi Cardiovascular: positive: Regular rate & rhythm Abdomen: positive: Non-tender, No distention. negative: Tenderness, Guarding, Rebound Rectal: positive: Other (Deferred given planned endoscopy and ER examination) Skin: positive: Pallor Extremities: positive: Non-tender, Nml appearance Neurologic/Psychiatric: positive: Disoriented to person, Disoriented to place, Disoriented to time, Weakness Conclusion/Plan - Diagnosis Diagnosis: 1. Hemorrhagic/hypovolemic shock. 2. Acute on chronic blood loss anemia. 3. Gastrointestinal bleeding. 4. Coronary artery disease on dual antiplatelet therapy. 5. Morbid obesity. 6. Altered mental status, unknown etiology - Plan Plan: 1. Admit to ICU, with hospitalist service 2. [Place central venous triple-lumen catheter for resuscitation] 3. [Place arterial line for close hemodynamic monitoring] 4. Plan upper endoscopy to evaluate source, will consider colonoscopy however given urgency of intervention will defer bowel prep at this time 5. Aggressive resuscitation 6. Agree with CT of the head to evaluate for altered sensorium as well as CT of the abdomen noncontrast in the setting of acute potentially on chronic renal failure for an occult source of gastrointestinal bleed 7. Bowel rest and IV fluids 8. PPI infusion and consider Carafate pending results 9. Hold dual antiplatelet therapy for the moment given the significance and profound nature of the patient's hemorrhagic shock and acute blood loss anemia to hemoglobin of 4 - Lab Results Lab results reviewed: Yes Jairo Bones: 06/28/20 08:18 06/28/20 04:45
[2020-06-27] MEDS ORDERED: FLUMAZENIL 0.1 MG/1 ML 5 ML MDV IVP ONE (13:54)
[2020-06-27] MEDS ORDERED: SODIUM CHLORIDE 0.9% 500 ML IV ONE (14:11)
[2020-06-27] MEDS: DEXTROSE 5%-0.9% NACL 1,000 ML IV SCH (14:12)
[2020-06-27] MEDS ORDERED: FLUMAZENIL 0.1 MG/1 ML 5 ML MDV IVP SCH ×2 (14:22→14:45)
[2020-06-27] MEDS ORDERED: DOPamine 800 MG/500 ML 800 MG/500 ML BAG IV SCH (15:00)
--- NOTE | 2020-06-27 16:34 | XRAY Report ---
PROCEDURE: Chest for Line Placement INDICATIONS: Verify line placement TECHNIQUE: One view of the chest was acquired. COMPARISON: 06/27/2020, 09/03/2019 FINDINGS: Surgical changes and devices: A right-sided central line is seen, with the tip overlying the superior aspect of the superior vena cava, 6 m above the cavoatrial junction. Lungs and pleura: An incomplete inspiratory result is noted, with low lung volumes and crowding of t he vascular markings. On the supine study, no large pneumothorax or large pleural effusions can be se en. No focal infiltrates are detected. Generalized interstitial prominence is seen. Mediastinum: The aorta is prominent and tortuous. The cardiac contours are mildly enlarged. Bones and chest wall: No suspicious bony lesions. Age-appropriate degenerative changes are seen. O verlying soft tissues appear unremarkable. IMPRESSION: The tip of the right-sided central line is seen overlying the superior aspect of the superior vena ca va. Reviewed by: Bharathi Schultz MD on 06/27/2020 3:33 PM AKDT Approved by: Bharathi Schultz MD on 06/27/2020 3:33 PM AKDT Station ID: [id number]
[2020-06-27] MEDS: SODIUM CHLORIDE FLUSH 0.9% 10 ML SYRINGE IVP SCH (16:54)
--- NOTE | 2020-06-27 17:22 | OPERATIVE REPORT ---
Operative Report - General Admit Date: 06/27/20 Planned Procedure: Preoperative diagnosis: 1. Hypovolemic shock 2. Upper GI bleed, suspected 3. Suspicion for sepsis 4. Hematochezia/Melena 5. Need for additional IV access PLANNED Procedures performed: 1. Ultrasound-guided right internal jugular venous access 2. Radiographic-confirmed central venous catheter placement at the atriocaval junction 3. Triple-lumen catheter placement in the right internal jugular Pre-Op Diagnosis: Hypovolemic/hemorrhagic shock, gastrointestinal bleed, need for CV access Procedure Performed: Postoperative diagnosis: 1. Hypovolemic shock 2. Upper GI bleed, suspected 3. Suspicion for sepsis 4. Hematochezia/Melena 5. Need for additional IV access 6. Successful placement of right internal jugular triple-lumen catheter 7. Profound hypovolemia with relative collapse of the internal jugular. Procedures performed: 1. Ultrasound-guided right internal jugular venous access 2. Radiographic-confirmed central venous catheter placement at the atriocaval junction 3. Triple-lumen catheter placement in the right internal jugular Post Op Diagnosis: Same, successful placement of right internal jugular central venous cath - Procedure Note Primary Surgeon: Marko Anesthesia Provider: [place] Anesthesia Technique: Local Indications: See EMR/Surgical Consultation. Findings: INTRAOPERATIVE FINDINGS: Right internal jugular was noted ultrasonographically. It was passed for the guidewire without any complication, which was confirmed by ultrasound imaging. The catheter ultimately was placed at the junction between the SVC and the atria of the atriocaval junction without any complication as confirmed by postoperative x-ray. Again, postoperative radiography confirmed placement. Patient tolerated the procedure well for which there was no complication. The port flushed easily, it aspirated well across all 3 ports. Patient was significantly hypovolemic and in need of aggressive resuscitation as noted by the relative collapse of the internal jugular even in steep Trendelenburg. Complications: None - Other Other Information/Narrative: INTRAOPERATIVE FINDINGS: Right internal jugular was noted ultrasonographically. It was passed for the guidewire without any complication, which was confirmed by ultrasound imaging. The catheter ultimately was placed at the junction between the SVC and the atria of the atriocaval junction without any complication as confirmed by postoperative x-ray. Again, postoperative radiography confirmed placement. Patient tolerated the procedure well for which there was no complication. The port flushed easily, it aspirated well across all 3 ports. Patient was significantly hypovolemic and in need of aggressive resuscitation as noted by the relative collapse of the internal jugular even in steep Trendelenburg. Preoperative diagnosis: 1. Hypovolemic shock 2. Upper GI bleed, suspected 3. Suspicion for sepsis 4. Hematochezia/Melena 5. Need for additional IV access Postoperative diagnosis: 1. Hypovolemic shock 2. Upper GI bleed, suspected 3. Suspicion for sepsis 4. Hematochezia/Melena 5. Need for additional IV access 6. Successful placement of right internal jugular triple-lumen catheter 7. Profound hypovolemia with relative collapse of the internal jugular. PROCEDURAL REPORT The patient was prepped for Right neck and chest in the usual sterile fashion. Time out was called and agreed to by all in the room. Please note secondary to the urgency of the procedure verbal informed consent was obtained and witnessed by nurse attendant in room. The ultrasound probe was draped with a sterile sleeve, and internal jugular was noted. The patient was placed in Trendelenburg, and the vein was cannulated using the introducer needle without any complication. There was venous return. The wire was easily passed through the introducer needle without any complication. The wire placement was confirmed Ultrasonographically. At this time, the wire was secured after the needle was removed. Thereafter, we dilated the tract after having incise the skin to accommodate. This was achieved without any complication. The triple-lumen catheter was already flushed and once the dilator was removed over the wire, the triple-lumen catheter was placed and appropriately positioned anticipating tip at the atriocaval junction. We had easy return of blood x3 ports which flushed without any complication as well. Please note the patient was performed for postoperative x-ray which confirmed placement at the atriocaval junction. The patient tolerated the procedure well for which there was no complication. All counts for sponges, needles, instruments were correct at the conclusion of this operative intervention. Post-op XR was reviewed without any deviation. No pneumothorax.
--- NOTE | 2020-06-27 17:22 | OPERATIVE REPORT ---
Operative Report - General Admit Date: 06/27/20 Planned Procedure: Preoperative diagnosis: 1. Hypovolemic shock 2. Upper GI bleed, suspected 3. On Pressors for HD support 4. Hematochezia/Melena 5. Need for additional IV access (see separate cover) 6. Need for reliable HD monitoring PLANNED Procedures performed: 1. Attempted ultrasound-guided right and left Radial artery catheter placement 2. Omar test bilaterally, unremarkable with intact palmar arch Pre-Op Diagnosis: Hemorrhagic shock, pressor support, gastrointestinal bleed Procedure Performed: Preoperative diagnosis: 1. Hypovolemic shock 2. Upper GI bleed, suspected 3. On Pressors for HD support 4. Hematochezia/Melena 5. Need for additional IV access (see separate cover) 6. Need for reliable HD monitoring Procedures performed: 1. Attempted ultrasound-guided right and left Radial artery catheter placement 2. Omar test bilaterally, unremarkable with intact palmar arch. 3. Successful placement of left femoral artery ultrasound-guided catheter placement with good waveform. Post Op Diagnosis: Same, significant vasoconstriction, successful left femoral artery line nany - Procedure Note Primary Surgeon: Marko Anesthesia Technique: Local Indications: See electronic medical record and surgical consultation. Findings: INTRAOPERATIVE FINDINGS: First the left hand was performed for Omar test with n o concern for incomplete/incompetent palmar arch. No palpable radial pulse was ascertained, ultrasound was attempted which did indeed show a vasoconstricted right radial artery which was attempted and successfully accessed however could not be passed for the wire or cannulated after which this was deferred. The right side was thereafter attempted however this similarly was confirmed for Omar's test with no obvious compromise of the palmar arch however a vasoconstricted right radial artery was noted for arterial flash on access however wire could not be successfully threaded and we deferred at this time cap refill was intact bilateral upper extremities. Thereafter we proceeded with LEFT femoral arterial line access using a 22 Kinyarwanda kit by modified Seldinger technique with a single stick and no complication. Good waveform achieved. Complications: NONE - Other Other Information/Narrative: Radial arterial line catheter placement Procedure performed: 1. Attempted ultrasound guided left then right radial arterial catheter placement 2. Successful placement left femoral arterial catheter placement INTRAOPERATIVE FINDINGS: First the left hand was performed for Omar test with no concern for incomplete/incompetent palmar arch. No palpable radial pulse was ascertained, ultrasound was attempted which did indeed show a vasoconstricted right radial artery which was attempted and successfully accessed however could not be passed for the wire or cannulated after which this was deferred. The right side was thereafter attempted however this similarly was confirmed for Omar's test with no obvious compromise of the palmar arch however a vasoconstricted right radial artery was noted for arterial flash on access however wire could not be successfully threaded and we deferred at this time cap refill was intact bilateral upper extremities. Thereafter we proceeded with LEFT femoral arterial line access using a 22 Kinyarwanda kit by modified Seldinger technique with a single stick and no complication. Good waveform achieved. Preoperative diagnosis: 1. Hypovolemic shock 2. Upper GI bleed, presumptive 3. Pressor support 4. Need for additional Hemodynamic monitoring. Postoperative diagnosis: 1. Hypovolemic shock 2. Upper GI bleed, presumptive 3. Pressor support 4. Need for additional Hemodynamic monitoring. 5. Successful placement of Left arterial line, radial artery. PROCEDURAL REPORT Please see above for attempts made for the left and right upper extremity which were deferred. Thereafter we opted to proceed with the LEFT femoral artery for access given the patient who is in extremis with hypotension vasoconstriction and under resuscitation as noted on venous access and ultrasound guidance. At this time we spoke to the obtain consent. Time out was called and agreed to by all in the room. Please note secondary to the urgency of the procedure verbal informed consent was obtained and witnessed by nurse attendant in room. The ultrasound probe was draped with a sterile sleeve. Pulsatile structures were noted for LEFT femoral artery. We proceeded to access the right femoral artery by ultrasound guidance with positive arterial blood return. The catheter was easily placed over the wire by modified Seldinger technique. Appropriate arterial waveform was appreciated with no complication. There was no complication after single for LEFT femoral arterial access. At the conclusion of this case we we reevaluated bilateral upper extremities given the significant vasoconstriction of the bilateral radial arteries and attempted access and patient was noted for had good cap refill with no complication to both hands at the conclusion of this procedure. The patient tolerated the procedure well for which there was no complication. All counts for sponges, needles, instruments were correct at the conclusion of this operative intervention.
--- NOTE | 2020-06-27 18:21 | CT Report ---
PROCEDURE: HEAD WO INDICATIONS: unresponsive TECHNIQUE: Noncontrast 4.5 mm thick angled axial sections acquired from the foramen magnum to the vertex. For r adiation dose reduction, the following was used: automated exposure control, adjustment of mA and/or kV according to patient size. COMPARISON: None. FINDINGS: Image quality: Excellent. CSF spaces: Basal cisterns are patent. No extra-axial fluid collections. Ventricles are normal in size and shape. Brain: No midline shift. No intracranial masses or hemorrhage. Barney-white matter interface is norm al. Skull and face: Calvarium and visualized facial bones are intact, without suspicious lesions. Metall ic foreign bodies noted in the posterior aspect of the right zygomatic arch. Sinuses: Visualized sinuses and mastoids are clear. IMPRESSION: No acute intracranial disease process. Reviewed by: Lakeshia Sands MD, PhD on 06/27/2020 6:19 PM PDT Approved by: Lakeshia Sands MD, PhD on 06/27/2020 6:19 PM PDT Station ID: [id number]
--- NOTE | 2020-06-27 18:30 | CT Report ---
PROCEDURE: Abdomen/Pelvis WO INDICATIONS: GI bleed TECHNIQUE: Noncontrast 5 mm thick sections acquired from the diaphragms to the symphysis. 5 mm coronal and sagi ttal reformats were then performed. For radiation dose reduction, the following was used: automated exposure control, adjustment of mA and/or kV according to patient size. COMPARISON: None. FINDINGS: Image quality: Limited by technical deficiencies with incomplete imaging of the left lateral margin o f the abdomen and positioning of patient's hands and arms over the abdomen at time of image acquisiti on which creates beam hardening artifact. ABDOMEN: Lung bases: Lung bases are clear. Heart size is normal. Atherosclerotic calcifications noted in the left coronary vasculature. Solid organs: Liver and spleen are normal in size. Gallbladder is contracted, but within normal monahan its Pancreas is normal in contours. No adrenal nodules. Kidneys are normal in size, without hydron ephrosis or nephrolithiasis. Peritoneum and bowel: Unenhanced bowel loops demonstrate normal wall thickness and caliber. Scattere d colonic diverticuli without evidence of diverticulitis. No free fluid or air. Nodes and vessels: No retroperitoneal or mesenteric adenopathy by size criteria. Aorta and inferior vena cava are normal in caliber. Scattered atherosclerotic calcifications are noted in the abdominal and pelvic vasculature. Miscellaneous: No ventral hernias. PELVIS: Genitourinary: Bladder decompressed by Bob catheter. Miscellaneous: No inguinal hernias or adenopathy. Bones: No suspicious bony lesions. No vertebral body compression fractures. Spine degenerative disc disease and facet arthropathy are noted. Convex left lumbar spine scoliosis. Bilateral hip osteoarth ritis. IMPRESSION: 1. No acute disease process identified within limitations of the study. 2. Colonic diverticulosis without evidence of diverticulitis. Reviewed by: Lakeshia Sands MD, PhD on 06/27/2020 6:29 PM PDT Approved by: Lakeshia Sands MD, PhD on 06/27/2020 6:29 PM PDT Station ID: [id number]
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
--- NOTE | 2020-06-27 19:42 | PROVIDER PROGRESS NOTE ---
Hospitalist Cross-cover Note - Cross-Cover Note Cross-Cover Note: 2 more units of PRBCs ordered and third one is infusing Romazicon 0.8 mg total given and the patient was able to awake to just hearing her name and follow commands, then falls back asleep. Dopamine needed to be titrated to 3 mics per kilogram per minute to achieve map of 60, a systolic blood pressure just over 100. No EGD will be done today, she is hemodynamically too unstable. Continue with empiric IV Protonix p.o. Head CT has not yet been done. Abdomen and pelvis CT have not yet been done. CVP line has been inserted, awaiting placement imaging. Artline could not be placed, attempted by general surgeon. If she can be weaned off of the dopamine, after receiving 3 units of blood, will forego an art line. I discussed the patient's status with the at bedside, on 3 different occasions today. Critical care time spent: 45 minutes with all the above
[2020-06-27] MEDS: PANTOPRAZOLE 40 MG VIAL IVP SCH (20:38)
[2020-06-27 21:58] LABS: HGB - HEMOGLOBIN 7.8 g/dL (12.0-16.0); MEAN CORPUSCULAR HEMOGLOBIN 28.4 pg (27.0-31.0); MEAN CORPUSCULAR HGB CONC 32.8 g/dL (32.0-36.0); MEAN CORPUSCULAR VOLUME 86.5 fL (81.0-99.0); MEAN PLATELET VOLUME 9.4 fL (7.9-10.8); RED BLOOD COUNT 2.75 10^6/uL (4.20-5.40); RED CELL DISTRIBUTION WIDTH 17.9 % (12.0-15.0)
[2020-06-28] MEDS: SODIUM CHLORIDE FLUSH 0.9% 10 ML SYRINGE IVP SCH ×3 (00:17→16:38)
[2020-06-28] MEDS: DEXTROSE 5%-0.9% NACL 1,000 ML IV SCH ×3 (00:17→11:22)
[2020-06-28 05:04] LABS: BASOPHILS % (AUTO) 0.2 %; EOSINOPHILS # (AUTO) 0.1 10^3/uL (0.0-0.7); EOSINOPHILS % (AUTO) 0.5 %; HGB - HEMOGLOBIN 8.9 g/dL (12.0-16.0); LYMPHOCYTES # (AUTO) 0.7 10^3/uL (1.5-3.5); MEAN CORPUSCULAR HEMOGLOBIN 28.4 pg (27.0-31.0); MEAN CORPUSCULAR VOLUME 86.3 fL (81.0-99.0); MEAN PLATELET VOLUME 9.1 fL (7.9-10.8); NEUTROPHILS # (AUTO) 10.5 10^3/uL (1.5-6.6); NEUTROPHILS % (AUTO) 84.6 %; PLT - PLATELET COUNT 211 10^3/uL (130-450); RED BLOOD COUNT 3.13 10^6/uL (4.20-5.40); RED CELL DISTRIBUTION WIDTH 17.2 % (12.0-15.0); WHITE BLOOD COUNT 12.4 x10^3/uL (4.8-10.8)
[2020-06-28 05:26] LABS: ALBUMIN 3.1 g/dL (3.2-5.5); ALBUMIN/GLOBULIN RATIO 1.1 (1.0-2.2); BILIRUBIN,TOTAL 1.1 mg/dL (0.2-1.0); CALCIUM 8.2 mg/dL (8.5-10.3); CREATININE 1.3 mg/dL (0.4-1.0); MAGNESIUM 2.2 mg/dL (1.7-2.8); PHOSPHORUS 3.7 mg/dL (2.5-4.6); TOTAL PROTEIN 5.9 g/dL (6.7-8.2)
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
[2020-06-28] MEDS ORDERED: LIDO GARGLE 30 ML BOTTLE ONE (08:18)
[2020-06-28 08:25] LABS: HGB - HEMOGLOBIN 8.8 g/dL (12.0-16.0); MEAN CORPUSCULAR HEMOGLOBIN 28.3 pg (27.0-31.0); MEAN CORPUSCULAR HGB CONC 32.7 g/dL (32.0-36.0); MEAN CORPUSCULAR VOLUME 86.5 fL (81.0-99.0); MEAN PLATELET VOLUME 9.4 fL (7.9-10.8); RED BLOOD COUNT 3.11 10^6/uL (4.20-5.40); RED CELL DISTRIBUTION WIDTH 17.4 % (12.0-15.0); WHITE BLOOD COUNT 12.1 x10^3/uL (4.8-10.8)
[2020-06-28] MEDS ORDERED: LACTATED RINGERS 1,000 ML IV ONE (09:42)
[2020-06-28] MEDS ORDERED: LIDO GARGLE 30 ML BOTTLE PO ONE (09:53)
--- NOTE | 2020-06-28 11:05 | PROVIDER PROGRESS NOTE ---
Progress Note 70-year-old female who presents with hemorrhagic shock, requiring pressor support and aggressive resuscitation, status post admission to the intensive care unit. Placed for internal jugular venous access and left femoral arterial line given her extremitas. This a.m. after multiple transfusions units of packed cells, has been weaned from pressor support and significantly improve from a hemodynamic standpoint. Coronary artery disease status post stent to mid LAD on dual antiplatelet therapy. Has not been on any prophylactic proton pump inhibition, especially since she has had a history of peptic ulcer disease. Status post multiple imaging studies yesterday, see below. CT abdomen pelvis impression: 1. No acute disease process identified within the limitations of the study. 2. Colonic diverticulosis without evidence of diverticulitis. CT head impression: No intracranial process Upper endoscopy/esophagogastroduodenoscopy: 1. Extensive duodenal ulcerations, largest of which was cavitating/deep, round and likely the source of the patient's significant gastrointestinal bleed and did not appear malignant. This area was clipped for an area of concern for an exposed vessel. No bleeding noted at the conclusion of this upper endoscopy. See report for details. 2. Multiple other areas of duodenal ulcers punctate and round likely secondary to chronic peptic ulcer disease and absent proton pump inhibition. Random duodenal biopsies around these areas performed. 3. Gastritis with no ulcerations biopsied randomly. Hiatal hernia. 4. Distal esophagitis random biopsy no other areas concerning, no tears or other sources of bleeding diathesis. Plan would be from a surgical perspective as follows: 1. Bowel rest, would consider Dobbhoff tube feeds, okay for medications however would avoid at all cost alendronate and other medications concerning for erosive disease. 2. [id number] PPI versus therapeutic twice daily dosing, as well as Carafate 4 times daily given the duodenal ulcerations. 3. Discussion with cardiology as to the role of continued dual antiplatelet therapy in this patient who has significant peptic ulcer disease with hemorrhagic shock. Would request modifying regimen to the extent that they feel comfortable. 4. Continued ICU level of care continued trending H&H continued hemodynamic monitoring. 5. We will continue to follow closely. Deferred lower endoscopy as it was henry ar that this was a chronic upper GI bleed exacerbated acutely by peptic ulceration.
[2020-06-28] MEDS: PANTOPRAZOLE 40 MG VIAL IVP SCH ×2 (11:08→21:10)
--- NOTE | 2020-06-28 11:21 | PROVIDER PROGRESS NOTE ---
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 artery] Blood Pressure [Right Radial artery] O2 Saturation 06/28/20 06/28/20 06/28/20 00:45 00:50 00:55 Temperature Heart Rate 101 H 99 105 H Heart Rate [ Monitoring electrodes] Respiratory 19 19 20 Rate Blood Pressure Blood Pressure [Left Brachial artery] Blood Pressure [Left Femoral artery] Blood Pressure [Right Brachial artery] Blood Pressure [Right Radial artery] O2 Saturation 06/28/20 06/28/20 06/28/20 01:00 01:01 01:05 Temperature Heart Rate 97 97 102 H Heart Rate [ 97 Monitoring electrodes] Respiratory 20 20 20 Rate Blood Pressure 114/52 L Blood Pressure 114/52 L [Left Brachial artery] Blood Pressure 125/55 L [Left Femoral artery] Blood Pressure [Right Brachial artery] Blood Pressure [Right Radial artery] O2 Saturation 96 06/28/20 06/28/20 06/28/20 01:10 01:15 01:20 Temperature Heart Rate 103 H 99 101 H Heart Rate [ Monitoring electrodes] Respiratory 18 22 23 Rate Blood Pressure Blood Pressure [Left Brachial artery] Blood Pressure [Left Femoral artery] Blood Pressure [Right Brachial artery] Blood Pressure [Right Radial artery] O2 Saturation 06/28/20 06/28/20 06/28/20 01:25 01:30 01:31 Temperature Heart Rate 100 101 H 101 H Heart Rate [ Monitoring electrodes] Respiratory 22 21 21 Rate Blood Pressure 114/63 Blood Pressure [Left Brachial artery] Blood Pressure [Left Femoral artery] Blood Pressure [Right Brachial artery] Blood Pressure [Right Radial artery] O2 Saturation 06/28/20 06/28/20 06/28/20 01:33 01:35 01:40 Temperature 37.6 C H Heart Rate 101 H 102 H 102 H Heart Rate [ Monitoring electrodes] Respiratory 21 20 19 Rate Blood Pressure 129/57 L Blood Pressure [Left Brachial artery] Blood Pressure [Left Femoral artery] Blood Pressure [Right Brachial artery] Blood Pressure [Right Radial artery] O2 Saturation 06/28/20 06/28/20 06/28/20 01:45 01:50 01:55 Temperature Heart Rate 106 H 106 H 102 H Heart Rate [ Monitoring electrodes] Respiratory 21 21 20 Rate Blood Pressure Blood Pressure [Left Brachial artery] Blood Pressure [Left Femoral artery] Blood Pressure [Right Brachial artery] Blood Pressure [Right Radial artery] O2 Saturation 06/28/20 06/28/20 06/28/20 02:00 02:01 02:02 Temperature Heart Rate 102 H 102 H 104 H Heart Rate [ 102 H Monitoring electrodes] Respiratory 19 23 15 Rate Blood Pressure 107/88 H Blood Pressure 107/88 H [Left Brachial artery] Blood Pressure 135/65 H [Left Femoral artery] Blood Pressure [Right Brachial artery] Blood Pressure [Right Radial artery] O2 Saturation 98 06/28/20 06/28/20 06/28/20 02:05 02:10 02:15 Temperature Heart Rate 103 H 103 H 103 H Heart Rate [ Monitoring electrodes] Respiratory 21 22 20 Rate Blood Pressure Blood Pressure [Left Brachial artery] Blood Pressure [Left Femoral artery] Blood Pressure [Right Brachial artery] Blood Pressure [Right Radial artery] O2 Saturation 06/28/20 06/28/20 06/28/20 02:20 02:25 02:30 Temperature Heart Rate 110 H 104 H 105 H Heart Rate [ Monitoring electrodes] Respiratory 28 H 22 19 Rate Blood Pressure Blood Pressure [Left Brachial artery] Blood Pressure [Left Femoral artery] Blood Pressure [Right Brachial artery] Blood Pressure [Right Radial artery] O2 Saturation 06/28/20 06/28/20 06/28/20 02:31 02:32 02:35 Temperature Heart Rate 104 H 104 H 102 H Heart Rate [ Monitoring electrodes] Respiratory 23 20 21 Rate Blood Pressure 89/76 L Blood Pressure [Left Brachial artery] Blood Pressure [Left Femoral artery] Blood Pressure [Right Brachial artery] Blood Pressure [Right Radial artery] O2 Saturation 06/28/20 06/28/20 06/28/20 02:40 02:45 02:50 Temperature Heart Rate 103 H 102 H 104 H Heart Rate [ Monitoring electrodes] Respiratory 22 21 21 Rate Blood Pressure Blood Pressure [Left Brachial artery] Blood Pressure [Left Femoral artery] Blood Pressure [Right Brachial artery] Blood Pressure [Right Radial artery] O2 Saturation 06/28/20 06/28/20 06/28/20 02:55 02:59 03:00 Temperature Heart Rate 104 H 104 H 104 H Heart Rate [ 104 H Monitoring electrodes] Respiratory 19 20 18 Rate Blood Pressure 116/63 Blood Pressure 116/63 [Left Brachial artery] Blood Pressure 141/72 H [Left Femoral artery] Blood Pressure [Right Brachial artery] Blood Pressure [Right Radial artery] O2 Saturation 99 06/28/20 06/28/20 06/28/20 03:01 03:05 03:10 Temperature Heart Rate 105 H 104 H 104 H Heart Rate [ Monitoring electrodes] Respiratory 18 19 19 Rate Blood Pressure Blood Pressure [Left Brachial artery] Blood Pressure [Left Femoral artery] Blood Pressure [Right Brachial artery] Blood Pressure [Right Radial artery] O2 Saturation 06/28/20 06/28/20 06/28/20 03:15 03:20 03:25 Temperature Heart Rate 99 108 H 105 H Heart Rate [ Monitoring electrodes] Respiratory 19 25 H 22 Rate Blood Pressure Blood Pressure [Left Brachial artery] Blood Pressure [Left Femoral artery] Blood Pressure [Right Brachial artery] Blood Pressure [Right Radial artery] O2 Saturation 06/28/20 06/28/20 06/28/20 03:30 03:34 03:35 Temperature Heart Rate 105 H 102 H 103 H Heart Rate [ Monitoring electrodes] Respiratory 22 19 19 Rate Blood Pressure 133/55 H Blood Pressure [Left Brachial artery] Blood Pressure [Left Femoral artery] Blood Pressure [Right Brachial artery] Blood Pressure [Right Radial artery] O2 Saturation 06/28/20 06/28/20 06/28/20 03:36 03:40 03:45 Temperature Heart Rate 103 H 104 H 105 H Heart Rate [ Monitoring electrodes] Respiratory 21 21 20 Rate Blood Pressure Blood Pressure [Left Brachial artery] Blood Pressure [Left Femoral artery] Blood Pressure [Right Brachial artery] Blood Pressure [Right Radial artery] O2 Saturation 06/28/20 06/28/20 06/28/20 03:50 03:55 04:00 Temperature 37.7 C H Heart Rate 102 H 104 H 104 H Heart Rate [ 104 H Monitoring electrodes] Respiratory 24 20 20 Rate Blood Pressure Blood Pressure 145/70 H [Left Brachial artery] Blood Pressure 152/73 H [Left Femoral artery] Blood Pressure [Right Brachial artery] Blood Pressure [Right Radial artery] O2 Saturation 97 06/28/20 06/28/20 06/28/20 04:01 04:05 04:10 Temperature Heart Rate 106 H 104 H 102 H Heart Rate [ Monitoring electrodes] Respiratory 22 21 18 Rate Blood Pressure 145/70 H Blood Pressure [Left Brachial artery] Blood Pressure [Left Femoral artery] Blood Pressure [Right Brachial artery] Blood Pressure [Right Radial artery] O2 Saturation 06/28/20 06/28/20 06/28/20 04:15 04:20 04:25 Temperature Heart Rate 104 H 102 H 106 H Heart Rate [ Monitoring electrodes] Respiratory 22 21 23 Rate Blood Pressure Blood Pressure [Left Brachial artery] Blood Pressure [Left Femoral artery] Blood Pressure [Right Brachial artery] Blood Pressure [Right Radial artery] O2 Saturation 06/28/20 06/28/20 06/28/20 04:30 04:35 04:40 Temperature Heart Rate 108 H 109 H 107 H Heart Rate [ Monitoring electrodes] Respiratory 21 22 22 Rate Blood Pressure Blood Pressure [Left Brachial artery] Blood Pressure [Left Femoral artery] Blood Pressure [Right Brachial artery] Blood Pressure [Right Radial artery] O2 Saturation 06/28/20 06/28/20 06/28/20 04:45 04:50 04:55 Temperature Heart Rate 103 H 103 H 106 H Heart Rate [ Monitoring electrodes] Respiratory 17 20 21 Rate Blood Pressure Blood Pressure [Left Brachial artery] Blood Pressure [Left Femoral artery] Blood Pressure [Right Brachial artery] Blood Pressure [Right Radial artery] O2 Saturation 06/28/20 06/28/20 06/28/20 05:00 05:05 05:10 Temperature Heart Rate 110 H 107 H 108 H Heart Rate [ 106 H Monitoring electrodes] Respiratory 21 18 22 Rate Blood Pressure Blood Pressure [Left Brachial artery] Blood Pressure 161/77 H [Left Femoral artery] Blood Pressure [Right Brachial artery] Blood Pressure [Right Radial artery] O2 Saturation 06/28/20 06/28/20 06/28/20 05:15 05:20 05:25 Temperature Heart Rate 109 H 108 H 106 H Heart Rate [ Monitoring electrodes] Respiratory 22 22 29 H Rate Blood Pressure Blood Pressure [Left Brachial artery] Blood Pressure [Left Femoral artery] Blood Pressure [Right Brachial artery] Blood Pressure [Right Radial artery] O2 Saturation 06/28/20 06/28/20 06/28/20 05:30 05:35 05:40 Temperature Heart Rate 104 H 104 H 106 H Heart Rate [ Monitoring electrodes] Respiratory 19 21 21 Rate Blood Pressure Blood Pressure [Left Brachial artery] Blood Pressure [Left Femoral artery] Blood Pressure [Right Brachial artery] Blood Pressure [Right Radial artery] O2 Saturation 06/28/20 06/28/20 06/28/20 05:45 05:50 05:55 Temperature Heart Rate 103 H 102 H 102 H Heart Rate [ Monitoring electrodes] Respiratory 21 22 21 Rate Blood Pressure Blood Pressure [Left Brachial artery] Blood Pressure [Left Femoral artery] Blood Pressure [Right Brachial artery] Blood Pressure [Right Radial artery] O2 Saturation 06/28/20 06/28/20 06/28/20 06:00 06:05 06:10 Temperature Heart Rate 104 H 100 103 H Heart Rate [ 103 H Monitoring electrodes] Respiratory 21 18 18 Rate Blood Pressure Blood Pressure [Left Brachial artery] Blood Pressure 160/80 H [Left Femoral artery] Blood Pressure [Right Brachial artery] Blood Pressure [Right Radial artery] O2 Saturation 06/28/20 06/28/20 06/28/20 06:15 06:20 06:25 Temperature Heart Rate 105 H 103 H 104 H Heart Rate [ Monitoring electrodes] Respiratory 18 20 21 Rate Blood Pressure Blood Pressure [Left Brachial artery] Blood Pressure [Left Femoral artery] Blood Pressure [Right Brachial artery] Blood Pressure [Right Radial artery] O2 Saturation 06/28/20 06/28/20 06/28/20 06:40 07:00 10:12 Temperature 37.8 C H 37.7 C H 37.6 C H Heart Rate Heart Rate [ 104 H 102 H 105 H Monitoring electrodes] Respiratory 20 21 19 Rate Blood Pressure Blood Pressure [Left Brachial artery] Blood Pressure 158/78 H 164/78 H [Left Femoral artery] Blood Pressure 140/72 H 144/67 H [Right Brachial artery] Blood Pressure 176/80 H [Right Radial artery] O2 Saturation 97 06/28/20 11:00 Temperature 37.6 C H Heart Rate Heart Rate [ 98 Monitoring electrodes] Respiratory 21 Rate Blood Pressure Blood Pressure [Left Brachial artery] Blood Pressure 181/91 H [Left Femoral artery] Blood Pressure [Right Brachial artery] Blood Pressure 168/95 H [Right Radial artery] O2 Saturation 99 Oxygen O2 Source Room air I&O (Last 24 Hrs): Intake and Output Totals x24h 06/26/20 06/27/20 06/28/20 23:59 23:59 23:59 Intake Total 3343.050 2423.4 Output Total 1295 1430 Balance 2048.050 993.4 General: Alert HEENT: Mucous membr. moist/pink Neck: Supple Neuro: Disoriented, Non Focal Cardiovascular: Regular rate Respiratory: No respiratory distress Abdomen: Soft, Other (Obese with pannus) Extremities: No edema - Results Results: Laboratory Results WBC 12.1 x10^3/uL (4.8-10.8) H 06/28/20 08:18 RBC 3.11 10^6/uL (4.20-5.40) L 06/28/20 08:18 Hgb 8.8 g/dL (12.0-16.0) L 06/28/20 08:18 Hct 26.9 % (37.0-47.0) L 06/28/20 08:18 MCV 86.5 fL (81.0-99.0) 06/28/20 08:18 MCH 28.3 pg (27.0-31.0) 06/28/20 08:18 MCHC 32.7 g/dL (32.0-36.0) 06/28/20 08:18 RDW 17.4 % (12.0-15.0) H 06/28/20 08:18 Plt Count 214 10^3/uL (130-450) 06/28/20 08:18 MPV 9.4 fL (7.9-10.8) 06/28/20 08:18 Neut # (Auto) 10.5 10^3/uL (1.5-6.6) H 06/28/20 04:45 Lymph # (Auto) 0.7 10^3/uL (1.5-3.5) L 06/28/20 04:45 [place] # (Auto) 1.0 10^3/uL (0.0-1.0) 06/28/20 04:45 Eos # (Auto) 0.1 10^3/uL (0.0-0.7) 06/28/20 04:45 Baso # (Auto) 0.0 10^3/uL (0.0-0.1) 06/28/20 04:45 Absolute Nucleated RBC 0.03 x10^3/uL 06/28/20 04:45 Nucleated RBC % 0.2 /100WBC 06/28/20 04:45 Sodium 142 mmol/L (135-145) 06/28/20 04:45 Potassium 3.7 mmol/L (3.5-5.0) 06/28/20 04:45 Chloride 114 mmol/L (101-111) H 06/28/20 04:45 Carbon Dioxide 15 mmol/L (21-32) L 06/28/20 04:45 Anion Gap 13.0 (6-13) 06/28/20 04:45 BUN 48 mg/dL (6-20) H 06/28/20 04:45 Creatinine 1.3 mg/dL (0.4-1.0) H 06/28/20 04:45 Estimated GFR (MDRD) 40 (>89) L 06/28/20 04:45 Glucose 137 mg/dL (70-100) H 06/28/20 04:45 POC Whole Bld Glucose 119 mg/dL (70 - 100) H 06/28/20 01:27 Lactic Acid 1.5 mmol/L (0.5-2.2) 06/27/20 14:54 Calcium 8.2 mg/dL (8.5-10.3) L 06/28/20 04:45 Phosphorus 3.7 mg/dL (2.5-4.6) 06/28/20 04:45 Magnesium 2.2 mg/dL (1.7-2.8) 06/28/20 04:45 Total Bilirubin 1.1 mg/dL (0.2-1.0) H 06/28/20 04:45 AST 1267 IU/L (10-42) H 06/28/20 04:45 ALT 1004 IU/L (10-60) H 06/28/20 04:45 Alkaline Phosphatase 40 IU/L (42-121) L 06/28/20 04:45 Troponin I High Sens 311.7 ng/L (2.3-14.8) H* 06/27/20 14:14 Total Protein 5.9 g/dL (6.7-8.2) L 06/28/20 04:45 Albumin 3.1 g/dL (3.2-5.5) L 06/28/20 04:45 Globulin 2.8 g/dL (2.1-4.2) 06/28/20 04:45 Albumin/Globulin Ratio 1.1 (1.0-2.2) 06/28/20 04:45 Lipase 29 U/L (22-51) 06/27/20 11:20 TSH 1.29 uIU/mL (0.34-5.60) 06/27/20 11:40 Urine Color YELLOW 06/27/20 11:33 Urine Clarity HAZY (CLEAR) 06/27/20 11:33 Urine pH 5.5 PH (5.0-7.5) 06/27/20 11:33 Ur Specific [place] 1.015 (1.002-1.030) 06/27/20 11:33 Urine Protein NEGATIVE mg/dL (NEGATIVE) 06/27/20 11:33 Urine Glucose (UA) NEGATIVE mg/dL (NEGATIVE) 06/27/20 11:33 Urine Ketones NEGATIVE mg/dL (NEGATIVE) 06/27/20 11:33 Urine Occult Blood NEGATIVE (NEGATIVE) 06/27/20 11:33 Urine Nitrite NEGATIVE (NEGATIVE) 06/27/20 11:33 Urine Bilirubin NEGATIVE (NEGATIVE) 06/27/20 11:33 Urine Urobilinogen 0.2 (NORMAL) E.U./dL (NORMAL) 06/27/20 11:33 Ur Leukocyte Esterase LARGE (NEGATIVE) H 06/27/20 11:33 Urine RBC 0-5 /HPF (0-5) 06/27/20 11:33 Urine WBC 4-5 /HPF (0-5) 06/27/20 11:33 Urine WBC Clumps PRESENT 06/27/20 11:33 Ur Epithelial Cells RARE Renal Tubular /HPF (<= Few) 06/27/20 11:33 Ur Squamous Epith Cells RARE Squamous (<= Few) 06/27/20 11:33 Amorphous Sediment Marked /LPF 06/27/20 11:33 Urine Bacteria Many /HPF (None Seen) H 06/27/20 11:33 Urine Casts 6-10 Hyaline Casts /LPF 06/27/20 11:33 Ur Microscopic Review INDICATED 06/27/20 11:33 Urine Culture Comments INDICATED 06/27/20 11:33 Nasal Screen MRSA (PCR) NEGATIVE (NEGATIVE) 06/27/20 14:00 Stl Occult Blood (IFOB) POSITIVE (NEGATIVE) A 06/27/20 11:52 Salicylates < 6.0 mg/dL 06/27/20 11:20 Urine Opiates Screen NEGATIVE (NEGATIVE) 06/27/20 11:33 Ur Oxycodone Screen NEGATIVE (NEGATIVE) 06/27/20 11:33 Urine Methadone Screen NEGATIVE (NEGATIVE) 06/27/20 11:33 Ur Propoxyphene Screen NEGATIVE (NEGATIVE) 06/27/20 11:33 Acetaminophen < 10 ug/mL (10-30) L 06/27/20 11:20 Ur Barbiturates Screen NEGATIVE (NEGATIVE) 06/27/20 11:33 Ur Tricyclics Screen NEGATIVE (NEGATIVE) 06/27/20 11:33 Ur Phencyclidine Scrn NEGATIVE (NEGATIVE) 06/27/20 11:33 Ur Amphetamine Screen NEGATIVE (NEGATIVE) 06/27/20 11:33 U Methamphetamines Scrn NEGATIVE (NEGATIVE) 06/27/20 11:33 U Benzodiazepines Scrn POSITIVE (NEGATIVE) H 06/27/20 11:33 Urine Cocaine Screen NEGATIVE (NEGATIVE) 06/27/20 11:33 U Cannabinoids Screen NEGATIVE (NEGATIVE) 06/27/20 11:33 Ethyl Alcohol < 5.0 mg/dL 06/27/20 11:20 Blood Type A POSITIVE 06/27/20 11:51 Blood Type Recheck A POSITIVE 06/27/20 12:50 Antibody Screen NEGATIVE 06/27/20 11:51 Crossmatch IS Only See Detail 06/27/20 11:51
[2020-06-28] MEDS: METOPROLOL 5 MG/5 ML VIAL IVP SCH ×3 (11:29→23:19)
[2020-06-28 12:12] LABS: HEMOGLOBIN A1c% 5.5 % (4.27-6.07)
[2020-06-28] MEDS: hydrALAZINE INJ 20 MG/ML VIAL IVP SCH ×2 (13:07→21:10)
--- NOTE | 2020-06-28 14:58 | ANESTHESIA POST OP EVALUATION ---
Anesthesia Post Eval - Post Anesthesia Eval Vitals: Last Vital Signs Temp 37.9 C H 06/28/20 14:00 Pulse 100 06/28/20 14:00 Resp 16 06/28/20 14:00 BP 166/79 H 06/28/20 14:00 Pulse Ox 98 06/28/20 14:00 CV Function Including HR & BP: positive: Stable Pain Control: positive: Satisfactory Nausea & Vomiting: positive: Negative Mental Status: positive: Baseline Respiratory Status: Airway Patent Hydration Status: Satisfactory (Returned to baseline) Anesthesia Complications: positive: None
[2020-06-28] MEDS: SUCRALFATE 1 GM/10 ML UDC PO SCH ×2 (16:37→21:59)
--- NOTE | 2020-06-28 18:06 | PHARMACY PROGRESS NOTE ---
- Best Possible Medication History Admit Date and Time: 06/27/20 8896 Processed by: Pharmacy Medication History completed: Yes Patient Interview: Completed Secondary Source(s): Physician records, Pharmacy records, Insurance records (PATIENT UNABLE TO PARTICIPATE FOR INTERVIEW. MEDICATION RECONCILIATION DONE USING [facility] RECORDS AND INSURANCE RECORDS ) As the person ultimately responsible for medication therapy, providers are able to order a medication from an existing home medication list in [facility] via the "Reconcile Routine" prior to Confirmation of that medication by accounting support specialist. Such practice is discouraged except when the physician, in their clinical judgment, deems that a medical need exists for a medication without regard to previous use.
[2020-06-28] MEDS: SODIUM CHLORIDE FLUSH 0.9% 10 ML SYRINGE IVP PRN (20:02)
[2020-06-28 20:12] LABS: HGB - HEMOGLOBIN 8.6 g/dL (12.0-16.0); MEAN CORPUSCULAR HEMOGLOBIN 28.7 pg (27.0-31.0); MEAN CORPUSCULAR HGB CONC 32.5 g/dL (32.0-36.0); MEAN CORPUSCULAR VOLUME 88.3 fL (81.0-99.0); RED CELL DISTRIBUTION WIDTH 17.8 % (12.0-15.0); WHITE BLOOD COUNT 11.7 x10^3/uL (4.8-10.8)
[2020-06-28] MEDS: carvediloL 12.5 MG TABLET PO SCH (21:17)
[2020-06-28] MEDS: ATORVASTATIN 40 MG TABLET PO SCH (21:17)
[2020-06-29] MEDS: SODIUM CHLORIDE FLUSH 0.9% 10 ML SYRINGE IVP SCH ×3 (00:14→16:28)
[2020-06-29] MEDS: DEXTROSE 5%-0.9% NACL 1,000 ML IV SCH ×2 (03:45→20:52)
[2020-06-29] MEDS: SODIUM CHLORIDE FLUSH 0.9% 10 ML SYRINGE IVP PRN ×6 (05:12→18:58)
[2020-06-29] MEDS: METOPROLOL 5 MG/5 ML VIAL IVP SCH ×2 (05:12→12:02)
[2020-06-29 05:23] LABS: BASOPHILS % (AUTO) 0.4 %; EOSINOPHILS % (AUTO) 0.3 %; HGB - HEMOGLOBIN 7.5 g/dL (12.0-16.0); LYMPHOCYTES % (AUTO) 10.3 %; MEAN CORPUSCULAR HEMOGLOBIN 27.6 pg (27.0-31.0); MEAN CORPUSCULAR HGB CONC 30.7 g/dL (32.0-36.0); MEAN CORPUSCULAR VOLUME 89.7 fL (81.0-99.0); MEAN PLATELET VOLUME 9.3 fL (7.9-10.8); MONOCYTES % (AUTO) 9.7 %; NEUTROPHILS # (AUTO) 7.9 10^3/uL (1.5-6.6); NEUTROPHILS % (AUTO) 78.8 %; PLT - PLATELET COUNT 184 10^3/uL (130-450); RED BLOOD COUNT 2.72 10^6/uL (4.20-5.40); RED CELL DISTRIBUTION WIDTH 18.2 % (12.0-15.0)
[2020-06-29 06:11] LABS: CALCIUM 8.3 mg/dL (8.5-10.3); MAGNESIUM 2.3 mg/dL (1.7-2.8)
[2020-06-29 06:27] LABS: CREATININE 0.9 mg/dL (0.4-1.0)
[2020-06-29] MEDS: SUCRALFATE 1 GM/10 ML UDC PO SCH ×4 (06:47→21:02)
--- NOTE | 2020-06-29 08:04 | PROVIDER PROGRESS NOTE ---
Subjective - Prog Note Date Prog Note Date: 06/29/20 - Subjective Subjective: She reports no further evidence of bleeding. Denies any abdominal pain. Reports feeling improved. 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 Current Medications - Current Medications Current Medications: Active Medications Atorvastatin Calcium (Lipitor) 80 mg PO QPM [facility] Last Admin: 06/28/20 21:17 Dose: 80 mg Documented by: Carvedilol (Coreg) 12.5 mg PO BIDWM [facility] Last Admin: 06/29/20 16:29 Dose: 12.5 mg Documented by: Hydralazine HCl (Apresoline Inj) 10 mg IVP BID [facility] Last Admin: 06/29/20 10:31 Dose: 10 mg Documented by: Dextrose/Sodium Chloride (D5ns) 1,000 mls @ 60 mls/hr IV .[id number] [facility] Last Infusion: 06/29/20 16:29 Dose: 60 mls/hr Documented by: Ceftriaxone Sodium 2 gm/ (Sodium Chloride) 100 mls @ 200 mls/hr IV DAILY [facility] Last Infusion: 06/29/20 11:35 Dose: Infused Documented by: Losartan Potassium (Cozaar) 25 mg PO DAILY [facility] Last Admin: 06/29/20 10:40 Dose: 25 mg Documented by: Ondansetron HCl (Zofran Inj) 4 mg IVP Q6HR PRN PRN Reason: Nausea / Vomiting Pantoprazole Sodium (Protonix) 40 mg IVP BID [facility] Last Admin: 06/29/20 10:33 Dose: 40 mg Documented by: Pregabalin (Lyrica) 100 mg PO DAILY [facility] Last Admin: 06/29/20 10:39 Dose: 100 mg Documented by: Pregabalin (Lyrica) 50 mg PO DAILY [facility] Last Admin: 06/29/20 10:37 Dose: 50 mg Documented by: Sodium Chloride (Normal Saline Flush 0.9%) 10 ml IVP 0100,0900,1700 [facility] Last Admin: 06/29/20 16:28 Dose: 10 ml Documented by: Sodium Chloride (Normal Saline Flush 0.9%) 10 ml IVP PRN PRN PRN Reason: NEEDED PER PROVIDER ORDERS Last Admin: 06/29/20 16:28 Dose: 30 ml Documented by: Sucralfate (Carafate) 1 gm PO 0700,1100,1600,2200 [facility] Last Admin: 06/29/20 16:28 Dose: 1 gm Documented by: Temazepam (Restoril) 30 mg PO QPM PRN PRN Reason: Insomnia Multivitamin [Multivitamins] 1 each PO DAILY 01/19/14 [place]-[facility] Fatty Acids/Fish Oil [Fish Oil Softgel] 1 each PO DAILY 01/19/14 Temazepam 30 mg PO HS 01/19/14 ALPRAZolam [Alprazolam] 1 mg PO BID 06/27/20 Atorvastatin Calcium 80 mg PO DAILY PM 06/27/20 Carvedilol 12.5 mg PO BID 06/27/20 Clopidogrel [Plavix] 75 mg PO DAILY 06/27/20 Furosemide 40 mg PO DAILY 06/27/20 Losartan Potassium 25 mg PO DAILY 06/27/20 Potassium Chloride 20 meq PO BID 06/27/20 Pregabalin [Lyrica] 150 mg PO DAILY 06/27/20 Topiramate 50 mg PO BID 06/27/20 Aspirin EC [Ecotrin] 81 mg PO DAILY 06/28/20 Pregabalin [Lyrica] 300 mg PO QPM 06/28/20 Objective - Vital Signs/Intake & Output Reviewed Vital Signs: Yes Vital Signs: Vital Signs Pulse Resp BP BP BP Pulse Ox 06/29/20 07:00 99 16 153/73 H 136/63 H 98 06/29/20 06:00 92 24 148/69 H 136/63 H 97 06/29/20 05:12 140/80 H 06/29/20 05:00 94 20 146/65 H 140/80 H 98 Intake & Output: Intake & Output 06/26/20 06/27/20 06/28/20 06/29/20 23:59 23:59 23:59 23:59 Intake Total 3343.050 2543.4 983 Output Total 1295 2755 570 Balance 2048.050 -211.6 413 - Objective General Appearance: positive: No acute distress, Alert Eyes Bilateral: positive: Normal inspection, Conjunctivae nml ENT: positive: ENT inspection nml Neck: positive: Nml inspection Respiratory: positive: No respiratory distress. negative: Wheezes, Rales Cardiovascular: positive: Regular rate & rhythm, No murmur. negative: Tachycardia, Systolic murmur Abdomen: positive: Non-tender, No distention. negative: Tenderness Skin: positive: Warm Extremities: positive: No pedal edema Neurologic/Psychiatric: negative: Disoriented to person, Disoriented to place - Lab Results Fish Bones: 06/29/20 14:12 06/29/20 08:22 Other Labs: Lab Results x24hrs 06/29/20 06/29/20 06/29/20 Range/Units 06:30 05:00 05:00 WBC (4.8-10.8) x10^3/uL RBC (4.20-5.40) 10^6/uL Hgb (12.0-16.0) g/dL Hct (37.0-47.0) % MCV (81.0-99.0) fL MCH (27.0-31.0) pg MCHC (32.0-36.0) g/dL RDW (12.0-15.0) % Plt Count (130-450) 10^3/uL MPV (7.9-10.8) fL Neut # (Auto) (1.5-6.6) 10^3/uL Lymph # (Auto) (1.5-3.5) 10^3/uL Sebastian # (Auto) (0.0-1.0) 10^3/uL Eos # (Auto) (0.0-0.7) 10^3/uL Baso # (Auto) (0.0-0.1) 10^3/uL Absolute Nucleated RBC x10^3/uL Nucleated RBC % /100WBC Potassium (3.5-5.0) mmol/L Creatinine 0.9 (0.4-1.0) mg/dL Estimated GFR (MDRD) 62 L (>89) POC Whole Bld Glucose 122 H (70 - 100) mg/dL Estimat Average Glucose (70-100) mg/dL Hemoglobin A1c % (4.27-6.07) % Calcium (8.5-10.3) mg/dL Phosphorus (2.5-4.6) mg/dL Magnesium (1.7-2.8) mg/dL Troponin I High Sens (2.3-14.8) ng/L Albumin 2.9 L (3.2-5.5) g/dL 06/29/20 06/29/20 06/29/20 Range/Units 05:00 05:00 00:02 WBC 10.0 (4.8-10.8) x10^3/uL RBC 2.72 L (4.20-5.40) 10^6/uL Hgb 7.5 L (12.0-16.0) g/dL Hct 24.4 L (37.0-47.0) % MCV 89.7 (81.0-99.0) fL MCH 27.6 (27.0-31.0) pg MCHC 30.7 L (32.0-36.0) g/dL RDW 18.2 H (12.0-15.0) % Plt Count 184 (130-450) 10^3/uL MPV 9.3 (7.9-10.8) fL Neut # (Auto) 7.9 H (1.5-6.6) 10^3/uL Lymph # (Auto) 1.0 L (1.5-3.5) 10^3/uL Sebastian # (Auto) 1.0 (0.0-1.0) 10^3/uL Eos # (Auto) 0.0 (0.0-0.7) 10^3/uL Baso # (Auto) 0.0 (0.0-0.1) 10^3/uL Absolute Nucleated RBC 0.03 x10^3/uL Nucleated RBC % 0.3 /100WBC Potassium 3.2 L (3.5-5.0) mmol/L Creatinine (0.4-1.0) mg/dL Estimated GFR (MDRD) (>89) POC Whole Bld Glucose 122 H (70 - 100) mg/dL Estimat Average Glucose (70-100) mg/dL Hemoglobin A1c % (4.27-6.07) % Calcium 8.3 L (8.5-10.3) mg/dL Phosphorus 2.0 L (2.5-4.6) mg/dL Magnesium 2.3 (1.7-2.8) mg/dL Troponin I High Sens (2.3-14.8) ng/L Albumin (3.2-5.5) g/dL 06/28/20 06/28/20 06/28/20 Range/Units 20:00 15:39 08:18 WBC 11.7 H (4.8-10.8) x10^3/uL RBC 3.00 L (4.20-5.40) 10^6/uL Hgb 8.6 L (12.0-16.0) g/dL Hct 26.5 L (37.0-47.0) % MCV 88.3 (81.0-99.0) fL MCH 28.7 (27.0-31.0) pg MCHC 32.5 (32.0-36.0) g/dL RDW 17.8 H (12.0-15.0) % Plt Count 206 (130-450) 10^3/uL MPV 9.0 (7.9-10.8) fL Neut # (Auto) (1.5-6.6) 10^3/uL Lymph # (Auto) (1.5-3.5) 10^3/uL Sebastian # (Auto) (0.0-1.0) 10^3/uL Eos # (Auto) (0.0-0.7) 10^3/uL Baso # (Auto) (0.0-0.1) 10^3/uL Absolute Nucleated RBC x10^3/uL Nucleated RBC % /100WBC Potassium (3.5-5.0) mmol/L Creatinine (0.4-1.0) mg/dL Estimated GFR (MDRD) (>89) POC Whole Bld Glucose 119 H (70 - 100) mg/dL Estimat Average Glucose (70-100) mg/dL Hemoglobin A1c % (4.27-6.07) % Calcium (8.5-10.3) mg/dL Phosphorus (2.5-4.6) mg/dL Magnesium (1.7-2.8) mg/dL Troponin I High Sens 2216.3 H* (2.3-14.8) ng/L Albumin (3.2-5.5) g/dL 06/28/20 06/28/20 Range/Units 08:18 04:45 WBC 12.1 H (4.8-10.8) x10^3/uL RBC 3.11 L (4.20-5.40) 10^6/uL Hgb 8.8 L (12.0-16.0) g/dL Hct 26.9 L (37.0-47.0) % MCV 86.5 (81.0-99.0) fL MCH 28.3 (27.0-31.0) pg MCHC 32.7 (32.0-36.0) g/dL RDW 17.4 H (12.0-15.0) % Plt Count 214 (130-450) 10^3/uL MPV 9.4 (7.9-10.8) fL Neut # (Auto) (1.5-6.6) 10^3/uL Lymph # (Auto) (1.5-3.5) 10^3/uL Sebastian # (Auto) (0.0-1.0) 10^3/uL Eos # (Auto) (0.0-0.7) 10^3/uL Baso # (Auto) (0.0-0.1) 10^3/uL Absolute Nucleated RBC x10^3/uL Nucleated RBC % /100WBC Potassium (3.5-5.0) mmol/L Creatinine (0.4-1.0) mg/dL Estimated GFR (MDRD) (>89) POC Whole Bld Glucose (70 - 100) mg/dL Estimat Average Glucose 111 H (70-100) mg/dL Hemoglobin A1c % 5.5 (4.27-6.07) % Calcium (8.5-10.3) mg/dL Phosphorus (2.5-4.6) mg/dL Magnesium (1.7-2.8) mg/dL Troponin I High Sens (2.3-14.8) ng/L Albumin (3.2-5.5) g/dL - Diagnostic Imaging Diagnostic Imaging Results: positive: Final report reviewed Assessment/Plan - Problem List (1) Upper GI bleed Impression: Secondary to two duodenal ulcers. This is likely due to the BC powder she is using for headaches [id number] which contains a high dose of aspirin. Hemoglobin appears to have stabilized. We will continue her on Protonix 40 mg IV twice daily. We will start her on a clear liquid diet today and advance as tolerated. We will transition her to MedSurg status. (2) Acute blood loss anemia Impression: This is secondary to the upper GI bleed. Her hemoglobin appears to have stabilized with no further evidence of bleeding. We will start her on a clear liquid diet and monitor for further bleeding. Continue monitor hemoglobin every 12 hours for the time being. (3) Coronary artery disease Impression: She has known coronary artery disease and had a bare-metal stent placed in August 2019. 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 Shen to review these records given the patient had an elevated troponin of 2000 during his hospitalization. This is likely demand ischemia given her significant anemia. Dr. Shen agrees with holding Plavix and aspirin and that the aspirin can resumed at some point on an outpatient basis. I reviewed her echocardiogram findings with Dr. Shen and he states that the akinesis is old from her prior MT. At this time we will continue her statin and beta-saturnino. We will hold aspirin and discontinue Plavix. (4) Elevated LFTs Impression: This is likely due to ischemic hepatitis from the hypotension. Her LFTs are improving. We will continue to monitor on a daily basis (5) Elevated troponin Impression: This was demand ischemia secondary to anemia. Echocardiogram showed a preserved ejection fraction with akinesis which is present on prior echocardiograms. Plan as mentioned above for coronary artery disease. (6) HTN (hypertension) Impression: Her blood pressure has been elevated today with systolic in the 130s to 150s. We have resumed her home antihypertensives. We will continue to monitor and adjust as needed. (7) Seizure disorder Impression: We will resume her home medications. (8) Hemorrhagic shock Impression: Has resolved. Her blood pressure is stable and she is actually hypertensive now. Her home antihypertensives have been resumed. (9) Acute renal failure superimposed on chronic kidney disease Impression: This has resolved and was likely prerenal in nature. Her renal function is back to baseline.
[2020-06-29] MEDS: POTASSIUM CHLOR 20 MEQ/100 ML 20 MEQ/100 ML BAG IV SCH ×2 (08:30→10:31)
[2020-06-29] MEDS: carvediloL 12.5 MG TABLET PO SCH ×2 (08:33→16:29)
[2020-06-29 08:57] LABS: ALBUMIN 2.9 g/dL (3.2-5.5); BILIRUBIN,DIRECT 0.3 mg/dL (0.1-0.5); CALCIUM 8.2 mg/dL (8.5-10.3); CREATININE 0.8 mg/dL (0.4-1.0); MAGNESIUM 2.3 mg/dL (1.7-2.8); PHOSPHORUS 1.9 mg/dL (2.5-4.6); TOTAL PROTEIN 5.6 g/dL (6.7-8.2)
[2020-06-29] MEDS ORDERED: POTASSIUM PHOSPHATE 15 MMOL in SODIUM CHLORIDE 0.9% 250 ML IV ONE (09:00)
[2020-06-29] MEDS: hydrALAZINE INJ 20 MG/ML VIAL IVP SCH ×2 (10:31→20:56)
[2020-06-29] MEDS: PANTOPRAZOLE 40 MG VIAL IVP SCH ×2 (10:33→20:55)
[2020-06-29] MEDS: PREGABALIN 25 MG CAPSULE PO SCH (10:37)
[2020-06-29] MEDS: PREGABALIN 100 MG CAPSULE PO SCH (10:39)
[2020-06-29] MEDS: LOSARTAN 50 MG TABLET PO SCH (10:40)
[2020-06-29] MEDS: cefTRIAXone 2 GM in SODIUM CHLORIDE 0.9% MINIBAG 100 ML IV SCH (10:53)
[2020-06-29 14:19] LABS: HGB - HEMOGLOBIN 7.6 g/dL (12.0-16.0)
[2020-06-29 19:08] LABS: BASOPHILS % (AUTO) 0.4 %; EOSINOPHILS # (AUTO) 0.1 10^3/uL (0.0-0.7); EOSINOPHILS % (AUTO) 0.7 %; HGB - HEMOGLOBIN 7.6 g/dL (12.0-16.0); LYMPHOCYTES # (AUTO) 0.8 10^3/uL (1.5-3.5); LYMPHOCYTES % (AUTO) 8.4 %; MEAN CORPUSCULAR HEMOGLOBIN 28.5 pg (27.0-31.0); MEAN CORPUSCULAR HGB CONC 30.6 g/dL (32.0-36.0); MEAN CORPUSCULAR VOLUME 92.9 fL (81.0-99.0); MEAN PLATELET VOLUME 9.7 fL (7.9-10.8); MONOCYTES # (AUTO) 0.9 10^3/uL (0.0-1.0); MONOCYTES % (AUTO) 9.5 %; NEUTROPHILS # (AUTO) 7.6 10^3/uL (1.5-6.6); NEUTROPHILS % (AUTO) 80.3 %; PLT - PLATELET COUNT 171 10^3/uL (130-450); RED BLOOD COUNT 2.67 10^6/uL (4.20-5.40); RED CELL DISTRIBUTION WIDTH 18.9 % (12.0-15.0); WHITE BLOOD COUNT 9.5 x10^3/uL (4.8-10.8)
[2020-06-29] MEDS: TOPIRAMATE 25 MG TABLET PO SCH (20:54)
[2020-06-29] MEDS: ATORVASTATIN 40 MG TABLET PO SCH (20:54)
[2020-06-29] MEDS: TEMAZEPAM 15 MG CAPSULE PO PRN (21:46)
[2020-06-30] MEDS: tiZANidine 4 MG TABLET PO PRN ×2 (01:06→22:45)
[2020-06-30] MEDS: PREGABALIN 100 MG CAPSULE PO SCH ×3 (01:06→21:14)
[2020-06-30] MEDS: SODIUM CHLORIDE FLUSH 0.9% 10 ML SYRINGE IVP SCH ×3 (01:08→16:47)
[2020-06-30] MEDS: SODIUM CHLORIDE FLUSH 0.9% 10 ML SYRINGE IVP PRN ×2 (05:52→21:16)
[2020-06-30 06:02] LABS: BASOPHILS # (AUTO) 0.1 10^3/uL (0.0-0.1); BASOPHILS % (AUTO) 0.6 %; EOSINOPHILS # (AUTO) 0.3 10^3/uL (0.0-0.7); EOSINOPHILS % (AUTO) 2.8 %; LYMPHOCYTES # (AUTO) 1.3 10^3/uL (1.5-3.5); LYMPHOCYTES % (AUTO) 13.9 %; MEAN CORPUSCULAR HEMOGLOBIN 28.6 pg (27.0-31.0); MEAN CORPUSCULAR HGB CONC 30.8 g/dL (32.0-36.0); MEAN CORPUSCULAR VOLUME 92.9 fL (81.0-99.0); MEAN PLATELET VOLUME 9.7 fL (7.9-10.8); MONOCYTES % (AUTO) 11.2 %; NEUTROPHILS # (AUTO) 6.4 10^3/uL (1.5-6.6); NEUTROPHILS % (AUTO) 70.9 %; PLT - PLATELET COUNT 151 10^3/uL (130-450); RED BLOOD COUNT 2.41 10^6/uL (4.20-5.40); RED CELL DISTRIBUTION WIDTH 19.1 % (12.0-15.0)
[2020-06-30 06:04] LABS: HGB - HEMOGLOBIN 6.9 g/dL (12.0-16.0)
[2020-06-30 06:18] LABS: ALBUMIN 2.6 g/dL (3.2-5.5); BILIRUBIN,DIRECT 0.1 mg/dL (0.1-0.5); BILIRUBIN,TOTAL 0.7 mg/dL (0.2-1.0); CALCIUM 7.9 mg/dL (8.5-10.3); CREATININE 0.8 mg/dL (0.4-1.0); MAGNESIUM 2.2 mg/dL (1.7-2.8); PHOSPHORUS 2.1 mg/dL (2.5-4.6); TOTAL PROTEIN 5.1 g/dL (6.7-8.2)
--- NOTE | 2020-06-30 07:39 | PROVIDER PROGRESS NOTE ---
Subjective - Prog Note Date Prog Note Date: 06/30/20 - Subjective Subjective: Nursing did note to dark tarry stools overnight. Her hemoglobin is decreased to 6.9 this morning. The patient reports feeling well overall. Denies any abdominal pain, nausea, vomiting. She is tolerating a clear liquid diet. She would like her diet advanced. Current Medications - Current Medications Current Medications: Active Medications Atorvastatin Calcium (Lipitor) 80 mg PO QPM [facility] Last Admin: 06/29/20 20:54 Dose: 80 mg Documented by: Carvedilol (Coreg) 12.5 mg PO BIDWM [facility] Last Admin: 06/30/20 08:49 Dose: 12.5 mg Documented by: Ceftriaxone Sodium 2 gm/ (Sodium Chloride) 100 mls @ 200 mls/hr IV DAILY [facility] Last Infusion: 06/30/20 09:19 Dose: Infused Documented by: Losartan Potassium (Cozaar) 25 mg PO DAILY [facility] Last Admin: 06/30/20 08:47 Dose: 25 mg Documented by: Ondansetron HCl (Zofran Inj) 4 mg IVP Q6HR PRN PRN Reason: Nausea / Vomiting Pantoprazole Sodium (Protonix) 40 mg IVP BID [facility] Last Admin: 06/30/20 08:49 Dose: 40 mg Documented by: Pregabalin (Lyrica) 100 mg PO DAILY [facility] Last Admin: 06/30/20 08:47 Dose: 100 mg Documented by: Pregabalin (Lyrica) 50 mg PO DAILY [facility] Last Admin: 06/30/20 08:47 Dose: 50 mg Documented by: Pregabalin (Lyrica) 300 mg PO QPM [facility] Last Admin: 06/30/20 01:06 Dose: 300 mg Documented by: Sodium Chloride (Normal Saline Flush 0.9%) 10 ml IVP 0100,0900,1700 [facility] Last Admin: 06/30/20 08:49 Dose: 10 ml Documented by: Sodium Chloride (Normal Saline Flush 0.9%) 10 ml IVP PRN PRN PRN Reason: NEEDED PER PROVIDER ORDERS Last Admin: 06/30/20 05:52 Dose: 20 ml Documented by: Sucralfate (Carafate) 1 gm PO 0700,1100,1600,2200 [facility] Last Admin: 06/30/20 10:58 Dose: 1 gm Documented by: Temazepam (Restoril) 30 mg PO QPM PRN PRN Reason: Insomnia Last Admin: 06/29/20 21:46 Dose: 30 mg Documented by: Tizanidine HCl (Zanaflex) 4 mg PO TID PRN PRN Reason: Spasms Last Admin: 06/30/20 01:06 Dose: 4 mg Documented by: Topiramate (Topamax) 50 mg PO BID [facility] Last Admin: 06/30/20 08:49 Dose: 50 mg Documented by: Multivitamin [Multivitamins] 1 each PO DAILY 01/19/14 [place]-[facility] Fatty Acids/Fish Oil [Fish Oil Softgel] 1 each PO DAILY 01/19/14 Temazepam 30 mg PO HS 01/19/14 ALPRAZolam [Alprazolam] 1 mg PO BID 06/27/20 Atorvastatin Calcium 80 mg PO DAILY PM 06/27/20 Carvedilol 12.5 mg PO BID 06/27/20 Clopidogrel [Plavix] 75 mg PO DAILY 06/27/20 Furosemide 40 mg PO DAILY 06/27/20 Losartan Potassium 25 mg PO DAILY 06/27/20 Potassium Chloride 20 meq PO BID 06/27/20 Pregabalin [Lyrica] 150 mg PO DAILY 06/27/20 Topiramate 50 mg PO BID 06/27/20 Aspirin EC [Ecotrin] 81 mg PO DAILY 06/28/20 Pregabalin [Lyrica] 300 mg PO QPM 06/28/20 Objective - Vital Signs/Intake & Output Reviewed Vital Signs: Yes Vital Signs: Vital Signs x48h Temp Pulse Resp BP Pulse Ox 06/30/20 05:49 37.3 C 82 18 121/71 98 06/30/20 00:17 37.4 C 99 23 123/64 97 Intake & Output: Intake & Output 06/27/20 06/28/20 06/29/20 06/30/20 23:59 23:59 23:59 23:59 Intake Total 3343.050 2543.4 3358 325 Output Total 1295 2755 1585 395 Balance 2048.050 -211.6 1773 -70 - Objective General Appearance: positive: No acute distress, Alert Eyes Bilateral: positive: Normal inspection, Conjunctivae nml ENT: positive: ENT inspection nml Neck: positive: Nml inspection Respiratory: positive: No respiratory distress. negative: Wheezes, Rales Cardiovascular: positive: Regular rate & rhythm. negative: Irregularly irregular, Tachycardia, Bradycardia, Systolic murmur Abdomen: positive: Non-tender, No distention. negative: Tenderness Skin: positive: Warm, Dry - Lab Results Fish Bones: 06/30/20 05:45 06/30/20 05:45 Other Labs: Lab Results x24hrs 06/30/20 06/30/20 06/29/20 Range/Units 05:45 05:45 18:57 WBC 9.0 9.5 (4.8-10.8) x10^3/uL RBC 2.41 L 2.67 L (4.20-5.40) 10^6/uL Hgb 6.9 L* 7.6 L (12.0-16.0) g/dL Hct 22.4 L 24.8 L (37.0-47.0) % MCV 92.9 92.9 (81.0-99.0) fL MCH 28.6 28.5 (27.0-31.0) pg MCHC 30.8 L 30.6 L (32.0-36.0) g/dL RDW 19.1 H 18.9 H (12.0-15.0) % Plt Count 151 171 (130-450) 10^3/uL MPV 9.7 9.7 (7.9-10.8) fL Neut # (Auto) 6.4 7.6 H (1.5-6.6) 10^3/uL Lymph # (Auto) 1.3 L 0.8 L (1.5-3.5) 10^3/uL Logan # (Auto) 1.0 0.9 (0.0-1.0) 10^3/uL Eos # (Auto) 0.3 0.1 (0.0-0.7) 10^3/uL Baso # (Auto) 0.1 0.0 (0.0-0.1) 10^3/uL Absolute Nucleated RBC 0.00 0.03 x10^3/uL Nucleated RBC % 0.0 0.3 /100WBC Sodium 144 (135-145) mmol/L Potassium 3.2 L (3.5-5.0) mmol/L Chloride 120 H* (101-111) mmol/L Carbon Dioxide 22 (21-32) mmol/L Anion Gap 2.0 L (6-13) BUN 13 (6-20) mg/dL Creatinine 0.8 (0.4-1.0) mg/dL Estimated GFR (MDRD) 71 L (>89) Glucose 121 H (70-100) mg/dL POC Whole Bld Glucose (70 - 100) mg/dL Calcium 7.9 L (8.5-10.3) mg/dL Phosphorus 2.1 L (2.5-4.6) mg/dL Magnesium 2.2 (1.7-2.8) mg/dL Total Bilirubin 0.7 (0.2-1.0) mg/dL Direct Bilirubin 0.1 (0.1-0.5) mg/dL AST 159 H (10-42) IU/L ALT 440 H (10-60) IU/L Alkaline Phosphatase 36 L (42-121) IU/L Troponin I High Sens (2.3-14.8) ng/L Total Protein 5.1 L (6.7-8.2) g/dL Albumin 2.6 L (3.2-5.5) g/dL Globulin 2.5 (2.1-4.2) g/dL 06/29/20 06/29/20 06/29/20 Range/Units 16:04 14:12 11:48 WBC (4.8-10.8) x10^3/uL RBC (4.20-5.40) 10^6/uL Hgb 7.6 L (12.0-16.0) g/dL Hct 24.4 L (37.0-47.0) % MCV (81.0-99.0) fL MCH (27.0-31.0) pg MCHC (32.0-36.0) g/dL RDW (12.0-15.0) % Plt Count (130-450) 10^3/uL MPV (7.9-10.8) fL Neut # (Auto) (1.5-6.6) 10^3/uL Lymph # (Auto) (1.5-3.5) 10^3/uL Logan # (Auto) (0.0-1.0) 10^3/uL Eos # (Auto) (0.0-0.7) 10^3/uL Baso # (Auto) (0.0-0.1) 10^3/uL Absolute Nucleated RBC x10^3/uL Nucleated RBC % /100WBC Sodium (135-145) mmol/L Potassium (3.5-5.0) mmol/L Chloride (101-111) mmol/L Carbon Dioxide (21-32) mmol/L Anion Gap (6-13) BUN (6-20) mg/dL Creatinine (0.4-1.0) mg/dL Estimated GFR (MDRD) (>89) Glucose (70-100) mg/dL POC Whole Bld Glucose 115 H (70 - 100) mg/dL Calcium (8.5-10.3) mg/dL Phosphorus (2.5-4.6) mg/dL Magnesium (1.7-2.8) mg/dL Total Bilirubin (0.2-1.0) mg/dL Direct Bilirubin (0.1-0.5) mg/dL AST (10-42) IU/L ALT (10-60) IU/L Alkaline Phosphatase (42-121) IU/L Troponin I High Sens 941.5 H* (2.3-14.8) ng/L Total Protein (6.7-8.2) g/dL Albumin (3.2-5.5) g/dL Globulin (2.1-4.2) g/dL 06/29/20 Range/Units 08:22 WBC (4.8-10.8) x10^3/uL RBC (4.20-5.40) 10^6/uL Hgb (12.0-16.0) g/dL Hct (37.0-47.0) % MCV (81.0-99.0) fL MCH (27.0-31.0) pg MCHC (32.0-36.0) g/dL RDW (12.0-15.0) % Plt Count (130-450) 10^3/uL MPV (7.9-10.8) fL Neut # (Auto) (1.5-6.6) 10^3/uL Lymph # (Auto) (1.5-3.5) 10^3/uL Logan # (Auto) (0.0-1.0) 10^3/uL Eos # (Auto) (0.0-0.7) 10^3/uL Baso # (Auto) (0.0-0.1) 10^3/uL Absolute Nucleated RBC x10^3/uL Nucleated RBC % /100WBC Sodium 145 (135-145) mmol/L Potassium 3.2 L (3.5-5.0) mmol/L Chloride 118 H (101-111) mmol/L Carbon Dioxide 20 L (21-32) mmol/L Anion Gap 7.0 (6-13) BUN 19 (6-20) mg/dL Creatinine 0.8 (0.4-1.0) mg/dL Estimated GFR (MDRD) 71 L (>89) Glucose 131 H (70-100) mg/dL POC Whole Bld Glucose (70 - 100) mg/dL Calcium 8.2 L (8.5-10.3) mg/dL Phosphorus 1.9 L (2.5-4.6) mg/dL Magnesium 2.3 (1.7-2.8) mg/dL Total Bilirubin 1.0 (0.2-1.0) mg/dL Direct Bilirubin 0.3 (0.1-0.5) mg/dL AST 397 H (10-42) IU/L ALT 693 H (10-60) IU/L Alkaline Phosphatase 38 L (42-121) IU/L Troponin I High Sens (2.3-14.8) ng/L Total Protein 5.6 L (6.7-8.2) g/dL Albumin 2.9 L (3.2-5.5) g/dL Globulin 2.7 (2.1-4.2) g/dL ABX Reporting Has patient been on IV antibiotics over the past 48 hours?: No Assessment/Plan - Problem List (1) Upper GI bleed Impression: Secondary to the duodenal ulcers likely due to NSAID use. She did have black tarry stool overnight this could be service representative of old bleeding but hemoglobin also did drop slightly less than 7. We will continue Protonix IV tw ice daily. We will transfuse another unit of packed red blood cell today. Recheck hemoglobin this afternoon. She continues to show evidence of bleeding or hemoglobin continues to decline then will discuss with surgery regarding need for a repeat endoscopy. Continue to avoid all NSAIDs. Continue with clear liquid diet as tolerated. (2) Acute blood loss anemia Impression: Hemoglobin dropped this morning to less than 7. She was transfused 1 unit of packed red blood cell. She still has some evidence of bleeding of this could be old blood. We will continue to check hemoglobin every 12 hours. She has remained hemodynamically stable. If hemoglobin continues to decline we will discuss with general surgery regarding repeat endoscopy. Continue to hold anticoagulation. SCDs for DVT prophylaxis. (3) UTI (urinary tract infection) Impression: Started on ceftriaxone IV yesterday for a staph urinary tract infection. Although she has no symptoms, she was febrile on admission. We will continue her on IV antibiotics for the time being. She has been afebrile now for more than 24 hours and likely de-escalate to oral antibiotics tomorrow. (4) Coronary artery disease Impression: Stable. She had bare-metal stent placed last year. Discussed with her dentistry professor yesterday and we we will hold Plavix and aspirin until outpatient follow-up given her upper GI bleed. Troponin was elevated during this hospitalization but likely demand ischemia given her anemia. 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 (5) Elevated LFTs Impression: Ischemic hepatitis given the hypotension. Her LFTs continue to improve on a daily basis. (6) HTN (hypertension) Impression: Her blood pressure is better controlled today. We will continue her current antihypertensives. (7) Seizure disorder Impression: Stable. Continue home medications.
[2020-06-30] MEDS ORDERED: NEUTRA-PHOS 250 MG TABLET PO ONE (08:00)
[2020-06-30] MEDS ORDERED: POTASSIUM CHLORIDE 20 MEQ TABLET PO ONE (08:00)
[2020-06-30] MEDS: PREGABALIN 25 MG CAPSULE PO SCH (08:47)
[2020-06-30] MEDS: LOSARTAN 50 MG TABLET PO SCH (08:47)
[2020-06-30] MEDS: SUCRALFATE 1 GM/10 ML UDC PO SCH ×4 (08:47→21:16)
[2020-06-30] MEDS: cefTRIAXone 2 GM in SODIUM CHLORIDE 0.9% MINIBAG 100 ML IV SCH (08:49)
[2020-06-30] MEDS: carvediloL 12.5 MG TABLET PO SCH ×2 (08:49→16:47)
[2020-06-30] MEDS: TOPIRAMATE 25 MG TABLET PO SCH ×2 (08:49→21:15)
[2020-06-30] MEDS: PANTOPRAZOLE 40 MG VIAL IVP SCH ×2 (08:49→21:16)
[2020-06-30] MEDS: hydrALAZINE INJ 20 MG/ML VIAL IVP SCH (09:43)
[2020-06-30 17:01] LABS: BASOPHILS # (AUTO) 0.1 10^3/uL (0.0-0.1); BASOPHILS % (AUTO) 0.5 %; EOSINOPHILS # (AUTO) 0.4 10^3/uL (0.0-0.7); EOSINOPHILS % (AUTO) 4.4 %; HGB - HEMOGLOBIN 8.7 g/dL (12.0-16.0); LYMPHOCYTES % (AUTO) 10.8 %; MEAN CORPUSCULAR HEMOGLOBIN 28.5 pg (27.0-31.0); MEAN CORPUSCULAR HGB CONC 30.9 g/dL (32.0-36.0); MEAN CORPUSCULAR VOLUME 92.5 fL (81.0-99.0); MEAN PLATELET VOLUME 9.8 fL (7.9-10.8); MONOCYTES # (AUTO) 1.1 10^3/uL (0.0-1.0); MONOCYTES % (AUTO) 12.1 %; NEUTROPHILS # (AUTO) 6.6 10^3/uL (1.5-6.6); NEUTROPHILS % (AUTO) 71.8 %; PLT - PLATELET COUNT 171 10^3/uL (130-450); RED BLOOD COUNT 3.05 10^6/uL (4.20-5.40); RED CELL DISTRIBUTION WIDTH 18.7 % (12.0-15.0); WHITE BLOOD COUNT 9.2 x10^3/uL (4.8-10.8)
[2020-06-30] MEDS: ATORVASTATIN 40 MG TABLET PO SCH (21:14)
[2020-06-30] MEDS: TEMAZEPAM 15 MG CAPSULE PO PRN (21:15)
[2020-07-01] MEDS: SODIUM CHLORIDE FLUSH 0.9% 10 ML SYRINGE IVP SCH ×4 (03:14→21:25)
[2020-07-01] MEDS: SODIUM CHLORIDE FLUSH 0.9% 10 ML SYRINGE IVP PRN (05:08)
[2020-07-01 05:40] LABS: ALBUMIN 2.9 g/dL (3.2-5.5); BILIRUBIN,DIRECT 0.2 mg/dL (0.1-0.5); BILIRUBIN,TOTAL 0.9 mg/dL (0.2-1.0); CALCIUM 8.2 mg/dL (8.5-10.3); CREATININE 0.7 mg/dL (0.4-1.0); MAGNESIUM 2.3 mg/dL (1.7-2.8); PHOSPHORUS 3.1 mg/dL (2.5-4.6); TOTAL PROTEIN 5.5 g/dL (6.7-8.2)
[2020-07-01] MEDS: SUCRALFATE 1 GM/10 ML UDC PO SCH ×4 (06:47→21:24)
[2020-07-01 07:21] LABS: BASOPHILS # (AUTO) 0.1 10^3/uL (0.0-0.1); BASOPHILS % (AUTO) 0.6 %; EOSINOPHILS # (AUTO) 0.5 10^3/uL (0.0-0.7); EOSINOPHILS % (AUTO) 6.1 %; HGB - HEMOGLOBIN 8.5 g/dL (12.0-16.0); LYMPHOCYTES % (AUTO) 11.4 %; MEAN CORPUSCULAR HEMOGLOBIN 29.2 pg (27.0-31.0); MEAN CORPUSCULAR HGB CONC 31.3 g/dL (32.0-36.0); MEAN CORPUSCULAR VOLUME 93.5 fL (81.0-99.0); MEAN PLATELET VOLUME 10.5 fL (7.9-10.8); MONOCYTES # (AUTO) 1.1 10^3/uL (0.0-1.0); MONOCYTES % (AUTO) 13.1 %; NEUTROPHILS # (AUTO) 5.8 10^3/uL (1.5-6.6); NEUTROPHILS % (AUTO) 68.3 %; PLT - PLATELET COUNT 181 10^3/uL (130-450); RED BLOOD COUNT 2.91 10^6/uL (4.20-5.40); RED CELL DISTRIBUTION WIDTH 18.9 % (12.0-15.0); WHITE BLOOD COUNT 8.5 x10^3/uL (4.8-10.8)
[2020-07-01] MEDS ORDERED: POTASSIUM CHLORIDE 20 MEQ TABLET PO ONE (08:00)
[2020-07-01] MEDS: carvediloL 12.5 MG TABLET PO SCH ×2 (08:04→16:58)
[2020-07-01] MEDS: LOSARTAN 50 MG TABLET PO SCH (08:06)
[2020-07-01] MEDS: PANTOPRAZOLE 40 MG VIAL IVP SCH (08:07)
[2020-07-01] MEDS: PREGABALIN 25 MG CAPSULE PO SCH (08:07)
[2020-07-01] MEDS: PREGABALIN 100 MG CAPSULE PO SCH ×2 (08:08→21:23)
[2020-07-01] MEDS: TOPIRAMATE 25 MG TABLET PO SCH ×2 (08:08→21:23)
[2020-07-01] MEDS: cefTRIAXone 2 GM in SODIUM CHLORIDE 0.9% MINIBAG 100 ML IV SCH (08:10)
--- NOTE | 2020-07-01 13:32 | PROVIDER PROGRESS NOTE ---
Subjective - Prog Note Date Prog Note Date: 07/01/20 - Subjective Subjective: She continues to report feeling well. She does note that her lower extremities are more edematous than usual. She reports no abdominal pain, nausea, vomiting. She is tolerating a clear liquid diet. Current Medications - Current Medications Current Medications: Active Medications Atorvastatin Calcium (Lipitor) 80 mg PO QPM [facility] Last Admin: 06/30/20 21:14 Dose: 80 mg Documented by: Carvedilol (Coreg) 12.5 mg PO BIDWM [facility] Last Admin: 07/01/20 08:04 Dose: 12.5 mg Documented by: Furosemide (Lasix) 40 mg PO DAILY [facility] Losartan Potassium (Cozaar) 25 mg PO DAILY [facility] Last Admin: 07/01/20 08:06 Dose: 25 mg Documented by: Ondansetron HCl (Zofran Inj) 4 mg IVP Q6HR PRN PRN Reason: Nausea / Vomiting Last Admin: 06/30/20 18:37 Dose: 4 mg Documented by: Pantoprazole Sodium (Protonix) 40 mg PO BID [facility] Pregabalin (Lyrica) 100 mg PO DAILY [facility] Last Admin: 07/01/20 08:08 Dose: 100 mg Documented by: Pregabalin (Lyrica) 50 mg PO DAILY [facility] Last Admin: 07/01/20 08:07 Dose: 50 mg Documented by: Pregabalin (Lyrica) 300 mg PO QPM [facility] Last Admin: 06/30/20 21:14 Dose: 300 mg Documented by: Sodium Chloride (Normal Saline Flush 0.9%) 10 ml IVP 0100,0900,1700 [facility] Last Admin: 07/01/20 08:09 Dose: 10 ml Documented by: Sodium Chloride (Normal Saline Flush 0.9%) 10 ml IVP PRN PRN PRN Reason: NEEDED PER PROVIDER ORDERS Last Admin: 07/01/20 05:08 Dose: 20 ml Documented by: Sucralfate (Carafate) 1 gm PO 0700,1100,1600,2200 [facility] Last Admin: 07/01/20 11:30 Dose: 1 gm Documented by: Temazepam (Restoril) 30 mg PO QPM PRN PRN Reason: Insomnia Last Admin: 06/30/20 21:15 Dose: 30 mg Documented by: Tizanidine HCl (Zanaflex) 4 mg PO TID PRN PRN Reason: Spasms Last Admin: 06/30/20 22:45 Dose: 4 mg Documented by: Topiramate (Topamax) 50 mg PO BID [facility] Last Admin: 07/01/20 08:08 Dose: 50 mg Documented by: Trimethoprim/Sulfamethoxazole (Bactrim Ds 800/160) 1 tab PO BID [facility] Stop: 07/03/20 21:01 Multivitamin [Multivitamins] 1 each PO DAILY 01/19/14 [place]-3 Fatty Acids/Fish Oil [Fish Oil Softgel] 1 each PO DAILY 01/19/14 Temazepam 30 mg PO HS 01/19/14 ALPRAZolam [Alprazolam] 1 mg PO BID 06/27/20 Atorvastatin Calcium 80 mg PO DAILY PM 06/27/20 Carvedilol 12.5 mg PO BID 06/27/20 Clopidogrel [Plavix] 75 mg PO DAILY 06/27/20 Furosemide 40 mg PO DAILY 06/27/20 Losartan Potassium 25 mg PO DAILY 06/27/20 Potassium Chloride 20 meq PO BID 06/27/20 Pregabalin [Lyrica] 150 mg PO DAILY 06/27/20 Topiramate 50 mg PO BID 06/27/20 Aspirin EC [Ecotrin] 81 mg PO DAILY 06/28/20 Pregabalin [Lyrica] 300 mg PO QPM 06/28/20 Objective - Vital Signs/Intake & Output Reviewed Vital Signs: Yes Vital Signs: Vital Signs x48h Temp Pulse Resp BP Pulse Ox 07/01/20 07:48 37.3 C 85 21 142/76 H 96 Intake & Output: Intake & Output 06/28/20 06/29/20 06/30/20 07/01/20 23:59 23:59 23:59 23:59 Intake Total 2543.4 3358 2819 1080 Output Total 2755 1585 1305 585 Balance -211.6 1773 1514 495 - Objective General Appearance: positive: No acute distress, Alert Eyes Bilateral: positive: Normal inspection, Conjunctivae nml ENT: positive: ENT inspection nml Neck: positive: Nml inspection Respiratory: positive: No respiratory distress. negative: Wheezes, Rales Cardiovascular: positive: Regular rate & rhythm, No murmur. negative: Tachycardia, Systolic murmur Abdomen: positive: Non-tender, No distention. negative: Tenderness, Guarding, Rebound Skin: positive: Warm, Dry Extremities: positive: Pedal edema (Trace to +1 pitting edema in bilateral lower extremities.) Neurologic/Psychiatric: positive: Oriented x3. negative: Disoriented to person, Disoriented to place, Disoriented to time - Lab Results Fish Bones: 07/01/20 05:00 07/01/20 05:00 Other Labs: Lab Results x24hrs 07/01/20 07/01/20 06/30/20 Range/Units 05:00 05:00 16:53 WBC 8.5 9.2 (4.8-10.8) x10^3/uL RBC 2.91 L 3.05 L (4.20-5.40) 10^6/uL Hgb 8.5 L 8.7 L (12.0-16.0) g/dL Hct 27.2 L 28.2 L (37.0-47.0) % MCV 93.5 92.5 (81.0-99.0) fL MCH 29.2 28.5 (27.0-31.0) pg MCHC 31.3 L 30.9 L (32.0-36.0) g/dL RDW 18.9 H 18.7 H (12.0-15.0) % Plt Count 181 171 (130-450) 10^3/uL MPV 10.5 9.8 (7.9-10.8) fL Neut # (Auto) 5.8 6.6 (1.5-6.6) 10^3/uL Lymph # (Auto) 1.0 L 1.0 L (1.5-3.5) 10^3/uL Lane # (Auto) 1.1 H 1.1 H (0.0-1.0) 10^3/uL Eos # (Auto) 0.5 0.4 (0.0-0.7) 10^3/uL Baso # (Auto) 0.1 0.1 (0.0-0.1) 10^3/uL Absolute Nucleated RBC 0.02 0.03 x10^3/uL Nucleated RBC % 0.2 0.3 /100WBC Sodium 143 (135-145) mmol/L Potassium 3.2 L (3.5-5.0) mmol/L Chloride 117 H (101-111) mmol/L Carbon Dioxide 21 (21-32) mmol/L Anion Gap 5.0 L (6-13) BUN 11 (6-20) mg/dL Creatinine 0.7 (0.4-1.0) mg/dL Estimated GFR (MDRD) 83 L (>89) Glucose 105 H (70-100) mg/dL Calcium 8.2 L (8.5-10.3) mg/dL Phosphorus 3.1 (2.5-4.6) mg/dL Magnesium 2.3 (1.7-2.8) mg/dL Total Bilirubin 0.9 (0.2-1.0) mg/dL Direct Bilirubin 0.2 (0.1-0.5) mg/dL AST 81 H (10-42) IU/L ALT 317 H (10-60) IU/L Alkaline Phosphatase 42 (42-121) IU/L Total Protein 5.5 L (6.7-8.2) g/dL Albumin 2.9 L (3.2-5.5) g/dL Globulin 2.6 (2.1-4.2) g/dL Blood Type Antibody Screen Crossmatch IS Only 06/30/20 Range/Units 07:38 WBC (4.8-10.8) x10^3/uL RBC (4.20-5.40) 10^6/uL Hgb (12.0-16.0) g/dL Hct (37.0-47.0) % MCV (81.0-99.0) fL MCH (27.0-31.0) pg MCHC (32.0-36.0) g/dL RDW (12.0-15.0) % Plt Count (130-450) 10^3/uL MPV (7.9-10.8) fL Neut # (Auto) (1.5-6.6) 10^3/uL Lymph # (Auto) (1.5-3.5) 10^3/uL Lane # (Auto) (0.0-1.0) 10^3/uL Eos # (Auto) (0.0-0.7) 10^3/uL Baso # (Auto) (0.0-0.1) 10^3/uL Absolute Nucleated RBC x10^3/uL Nucleated RBC % /100WBC Sodium (135-145) mmol/L Potassium (3.5-5.0) mmol/L Chloride (101-111) mmol/L Carbon Dioxide (21-32) mmol/L Anion Gap (6-13) BUN (6-20) mg/dL Creatinine (0.4-1.0) mg/dL Estimated GFR (MDRD) (>89) Glucose (70-100) mg/dL Calcium (8.5-10.3) mg/dL Phosphorus (2.5-4.6) mg/dL Magnesium (1.7-2.8) mg/dL Total Bilirubin (0.2-1.0) mg/dL Direct Bilirubin (0.1-0.5) mg/dL AST (10-42) IU/L ALT (10-60) IU/L Alkaline Phosphatase (42-121) IU/L Total Protein (6.7-8.2) g/dL Albumin (3.2-5.5) g/dL Globulin (2.1-4.2) g/dL Blood Type A POSITIVE Antibody Screen NEGATIVE Crossmatch IS Only See Detail ABX Reporting Has patient been on IV antibiotics over the past 48 hours?: No Assessment/Plan - Problem List (1) Upper GI bleed Impression: Stable. There appears to be no further evidence of bleeding and her hemoglobin has responded appropriately to transfusion and appears to be stabilizing. We will put her on oral Protonix today. We will advance her diet as tolerated. If she does bleed again then will discuss with general surgery regarding further intervention. (2) Acute blood loss anemia Impression: Transfuse another unit of packed red blood cell yesterday for hemoglobin 7.0 and this has increased to 8.7 after transfusion. This morning it is stable at 8.5. It appears her hemoglobin is stabilizing and there has not been further evidence of bleeding. Have her hemoglobin is stable this afternoon tomorrow morning, she is likely stable for discharge on oral Protonix. (3) UTI (urinary tract infection) Impression: She is remained a febrile. Her urine cultures grew staph aureus. Today is day 3 of antibiotics and we will discontinue ceftriaxone and put her on oral Bactrim to complete 5 days of therapy. (4) Coronary artery disease Impression: Stable. We have continued her home medications. We will not discharge her on aspirin and Plavix as fortunately she is a bare-metal stent. She will follow-up with her boat rental clerk on outpatient basis and aspirin can be resumed at that time when her hemoglobin has improved and remains stable. This was discussed with her boat rental clerk who was in agreement. (5) Elevated LFTs Impression: This was likely ischemic otitis from hypotension. Her LFTs continue to improve on a daily basis. We will no longer trend them. This can be monitored on outpatient basis. (6) HTN (hypertension) Impression: Her blood pressures remained stable and well-controlled on her current antihypertensive regimen.
[2020-07-01] MEDS ORDERED: FUROSEMIDE 40 MG/4 ML VIAL IVP STA (13:52)
[2020-07-01 18:27] LABS: HGB - HEMOGLOBIN 9.4 g/dL (12.0-16.0)
[2020-07-01] MEDS: TEMAZEPAM 15 MG CAPSULE PO PRN (21:22)
[2020-07-01] MEDS: ATORVASTATIN 40 MG TABLET PO SCH (21:22)
[2020-07-01] MEDS: tiZANidine 4 MG TABLET PO PRN (21:24)
[2020-07-01] MEDS: PANTOPRAZOLE 40 MG TABLET PO SCH (21:26)
[2020-07-02] MEDS: SODIUM CHLORIDE FLUSH 0.9% 10 ML SYRINGE IVP PRN (04:40)
[2020-07-02 05:46] LABS: BASOPHILS % (AUTO) 0.5 %; EOSINOPHILS # (AUTO) 0.6 10^3/uL (0.0-0.7); EOSINOPHILS % (AUTO) 6.8 %; HGB - HEMOGLOBIN 8.6 g/dL (12.0-16.0); LYMPHOCYTES # (AUTO) 1.1 10^3/uL (1.5-3.5); LYMPHOCYTES % (AUTO) 12.7 %; MEAN CORPUSCULAR HEMOGLOBIN 28.6 pg (27.0-31.0); MEAN CORPUSCULAR HGB CONC 31.2 g/dL (32.0-36.0); MEAN CORPUSCULAR VOLUME 91.7 fL (81.0-99.0); MEAN PLATELET VOLUME 10.2 fL (7.9-10.8); MONOCYTES % (AUTO) 12.1 %; NEUTROPHILS # (AUTO) 5.7 10^3/uL (1.5-6.6); NEUTROPHILS % (AUTO) 67.5 %; PLT - PLATELET COUNT 190 10^3/uL (130-450); RED BLOOD COUNT 3.01 10^6/uL (4.20-5.40); RED CELL DISTRIBUTION WIDTH 18.2 % (12.0-15.0); WHITE BLOOD COUNT 8.4 x10^3/uL (4.8-10.8)
[2020-07-02 05:56] LABS: CREATININE 0.7 mg/dL (0.4-1.0); MAGNESIUM 2.1 mg/dL (1.7-2.8); PHOSPHORUS 3.2 mg/dL (2.5-4.6)
[2020-07-02] MEDS: SUCRALFATE 1 GM/10 ML UDC PO SCH ×2 (06:12→11:05)
[2020-07-02] MEDS ORDERED: POTASSIUM CHLORIDE 20 MEQ TABLET PO ONE (08:00)
[2020-07-02] MEDS: carvediloL 12.5 MG TABLET PO SCH (08:02)
[2020-07-02] MEDS: LOSARTAN 50 MG TABLET PO SCH (08:03)
[2020-07-02] MEDS: PREGABALIN 100 MG CAPSULE PO SCH (08:04)
[2020-07-02] MEDS: PREGABALIN 25 MG CAPSULE PO SCH (08:04)
[2020-07-02] MEDS: PANTOPRAZOLE 40 MG TABLET PO SCH (08:04)
[2020-07-02] MEDS: SODIUM CHLORIDE FLUSH 0.9% 10 ML SYRINGE IVP SCH (08:05)
[2020-07-02] MEDS: TOPIRAMATE 25 MG TABLET PO SCH (08:05)
[2020-07-02 08:40] VITALS: BP 143/78
[2020-07-02] MEDS ORDERED: SULFAMETH/TRIMETH DS 800/160 MG TABLET PO SCH (09:00)
[2020-07-02] MEDS ORDERED: FUROSEMIDE 40 MG TABLET PO SCH (09:00)
--- NOTE | 2020-07-02 10:34 | Discharge Plan ---
Discharge Plan Problem Reviewed?: Yes Disposition: Home, Self Care Condition: Stable Prescriptions: Sulfamethox/Trimeth 800/160 [Bactrim Ds] 1 tab PO BID #6 tablet Sucralfate [Carafate] 1 gm PO 0700,1100,1600,2200 #300 ml Pantoprazole [Protonix] 40 mg PO BID #60 tablet Diet: Cardiac Activity Restrictions: Activity as Tolerated Instruction Topics: Peptic Ulcer, Ulcer Bleeding Peptic Tx Health Concerns: You were in the hospital because you were bleeding from an ulcer in your duodenum which is near your stomach. You had this ulcer because of the meloxicam and BC powder you were taking. These medications and other NSAIDs like Advil, ibuprofen, Motrin can cause ulcers in your stomach which can cause bleeding like this. It is important that you do not take any NSAIDs at all. You were also found to have a urinary tract infection you are treated with IV antibiotics during this hospitalization. Please complete your course of treatment by taking the oral antibiotics as prescribed. Plan of Treatment: Please take Protonix 40 mg twice daily for 30 days and once daily after that. Please take the Carafate as prescribed. Please avoid all NSAIDs. Stop taking Plavix and aspirin until you follow-up with your rn sane. When your blood counts increase and are stable and a repeat endoscopy shows the ulcers have healed, they can restart you on aspirin again. Please follow-up with your primary care provider as you will need a referral to general surgery or GI doctor for a repeat endoscopy in about 6 weeks to ensure that the ulcers are healing. Please take the antibiotic, Bactrim, twice daily for 3 more days to complete your course of treatment for the urinary tract infection. Assessment: The patient expressed understanding of the treatment plan. Additional Instructions or Follow Up instructions: Follow-up with your primary care provider in 1 to 2 weeks. You will need to be referred to general surgery or gastroenterology for repeat endoscopy to ensure that the ulcers are healing. No Smoking: If you smoke, Please STOP! Call for help. Follow-up with: Alexia Abdi PA-C [Primary Care Provider] -
--- NOTE | 2020-07-02 10:37 | DISCHARGE SUMMARY ---
"Discharge Summary Admit Date: 06/27/20 Discharge Date: 07/02/20 Discharging Provider: Huy Carter Primary Care Provider: Alexia Abdi Code Status: Attempt Resuscitation Condition at Discharge: Stable Discharge Disposition: 01 Home, Self Care - DIAGNOSES Admission Diagnoses: Hemorrhagic shock Gastrointestinal blood loss Anemia Lactic acidosis Unresponsiveness Benzodiazepine toxicity Abnormal EKG consistent with old myocardial infarction Acute on chronic kidney disease Hyperkalemia Elevated liver function test Morbid obesity Bedbound History of coronary artery disease Breast cancer Degenerative joint disease Anxiety Seizure disorder Discharge Diagnoses with Status of Each Condition: Hemorrhagic shock - resolved. GI bleed secondary to duodenal ulcers - resolved. Acute blood loss anemia - stable. Urinary tract infection - stable. Coronary artery disease - stable. Elevated LFTs secondary to ischemic hepatitis - improving. Hypertension - stable. Hypokalemia - stable. Peripheral neuropathy - stable. - HPI History of Present Illness: Please refer to H&P of Dr. Dominguez. - CONSULTS | PROCEDURES Consultations: General Surgery Procedures: She underwent endoscopy on June 27 which showed multiple erosions measuring 2 x 6 mm in size in the first part of the duodenum, second part of the duodenum and duodenal bulb. Complete hemostasis was achieved by placing 2 hemoclips on the bleeding sites. Multiple ulcers were found in the duodenal bulb and first part duodenum. Right femoral arterial line was placed on June 27. Right IJ central line was placed on June 27. - HOSPITAL COURSE Hospital Course: She was admitted to the intensive care unit for hemorrhagic shock secondary to an upper GI bleed. She underwent endoscopy on the same day which showed multipl e duodenal ulcers that required Hemoclip. She required multiple liters of IV fluids and initially received 4 units of packed red blood cells. She started on Protonix 40 mg IV twice daily along with Carafate. She was made n.p.o. after the endoscopy. She remained hypotensive and required dopamine as a vasopressor. As she was resuscitated, the dopamine was weaned off. Hemoglobin remained stable without further evidence of bleeding. Her urinalysis was suggestive of infection urine culture grew staph aureus. She was treated with ceftriaxone IV during his hospitalization and transition to oral Bactrim. Blood cultures remain negative during this hospitalization. She was started on a clear liquid diet which she tolerated well. Her hemoglobin did dip down slightly and she did have an episode of black tarry stool but this was felt to likely be old blood. She received a 5th unit of packed red blood cell and her hemoglobin responded well to it. She was monitored for 36 hours without further evidence of bleeding and her hemoglobin remained stable. During this hospitalization, her LFTs were elevated at greater than 1000 but these improved on a daily basis. This was felt to be ischemic hepatitis given she was quite hypotensive on admission. Her troponin was also elevated and pea ked at over 2000. Her echocardiogram showed an ejection fraction of 50 to 55% with some akinesis. This was reviewed with her graphic artist at [facility] and the akinesis is old from her prior myocardial infarction back in August 2019. She did have a stent placed during that time but fortunately was a bare- metal stent. We are holding her aspirin and Plavix and her graphic artist is aware. The aspirin can be resumed in the future once she has a repeat endoscopy to ensure the duodenal ulcers are healing well and her hemoglobin has remained stable. I counseled the patient extensively on the importance of avoiding all NSAIDs as she was taking meloxicam and BC powder which includes 1000 mg of aspirin. She was taking up to 4000 mg of this on a daily basis. She was discharged without aspirin and Plavix. She was discharged on Protonix 40 mg twice daily to take for 30 days and then 40 mg daily onwards. She was also discharged with Carafate. She was provided with 3 more days of Bactrim for urinary tract infection to complete 7 days of therapy. She was asked to follow- up with her primary care provider in 1 to 2 weeks and to be referred to general surgery or gastroenterology for an outpatient endoscopy. - ALLERGIES Allergies/Adverse Reactions: Allergies Allergy/AdvReac Type Severity Reaction Status Date / Time No Known Drug Allergies Allergy Verified 06/27/20 11:17 - MEDICATIONS Home Medications: Ambulatory Orders Medication Instructions Recorded Confirmed Multivitamin [Multivitamins] 1 each PO DAILY 01/19/14 06/28/20 [place]-3 Fatty Acids/Fish Oil [Fish 1 each PO DAILY 01/19/14 06/28/20 Oil Softgel] Temazepam 30 mg PO HS 01/19/14 06/28/20 ALPRAZolam [Alprazolam] 1 mg PO BID 06/27/20 06/28/20 Atorvastatin Calcium 80 mg PO DAILY PM 06/27/20 06/28/20 Carvedilol 12.5 mg PO BID 06/27/20 06/28/20 Furosemide 40 mg PO DAILY 06/27/20 06/28/20 Losartan Potassium 25 mg PO DAILY 06/27/20 06/28/20 Potassium Chloride 20 meq PO BID 06/27/20 06/28/20 Pregabalin [Lyrica] 150 mg PO DAILY 06/27/20 06/28/20 Topiramate 50 mg PO BID 06/27/20 06/28/20 Pregabalin [Lyrica] 300 mg PO QPM 06/28/20 06/28/20 Pantoprazole [Protonix] 40 mg PO BID #60 tablet 07/02/20 Sucralfate [Carafate] 1 gm PO 0700,1100,1600,2200 #300 ml 07/02/20 Sulfamethox/Trimeth 800/160 1 tab PO BID #6 tablet 07/02/20 [Bactrim Ds] - PHYSICAL EXAM AT DISCHARGE General Appearance: positive: No acute distress, Alert Eyes Bilateral: positive: Normal inspection, Conjunctivae nml ENT: positive: ENT inspection nml Neck: positive: Nml inspection Respiratory: positive: No respiratory distress. negative: Wheezes, Rales Cardiovascular: positive: Regular rate & rhythm, No murmur. negative: Tachycardia, Bradycardia, Systolic murmur Abdomen: positive: Non-tender, No distention. negative: Tenderness, Guarding, Rebound Skin: positive: Warm, Dry Extremities: positive: Pedal edema (Trace to +1 pitting edema in bilateral lower extremities.) Neurologic/Psychiatric: positive: Oriented x3, Motor nml. negative: Disoriented to person, Disoriented to place, Disoriented to time Physical Exam Other/Comments: Vital Signs - 24 hr 07/01/20 07/01/20 07/01/20 16:19 19:19 23:33 Temperature 37 C 36.9 C 37.6 C H Heart Rate [ 78 84 81 Monitoring electrodes] Respiratory 14 20 22 Rate Blood Pressure 131/81 H 121/66 91/49 L [Right Brachial artery] O2 Saturation 99 97 95 07/02/20 07/02/20 04:28 08:38 Temperature 37.2 C 37.4 C Heart Rate [ 81 90 Monitoring electrodes] Respiratory 18 24 Rate Blood Pressure 127/74 143/78 H [Right Brachial artery] O2 Saturation 95 97 Oxygen O2 Source Room air - LABS Result Diagrams: 07/02/20 11:55 07/02/20 04:40 Other Lab Results: Laboratory Results - last 24 hr 07/01/20 07/02/20 07/02/20 18:25 04:40 04:40 WBC 8.4 RBC 3.01 L Hgb 9.4 L 8.6 L Hct 29.8 L 27.6 L MCV 91.7 MCH 28.6 MCHC 31.2 L RDW 18.2 H Plt Count 190 MPV 10.2 Neut # (Auto) 5.7 Lymph # (Auto) 1.1 L [place] # (Auto) 1.0 Eos # (Auto) 0.6 Baso # (Auto) 0.0 Absolute Nucleated RBC 0.00 Nucleated RBC % 0.0 Sodium 142 Potassium 3.0 L Chloride 111 Carbon Dioxide 22 Anion Gap 9.0 BUN 12 Creatinine 0.7 Estimated GFR (MDRD) 83 L Glucose 104 H Calcium 8.0 L Phosphorus 3.2 Magnesium 2.1 07/02/20 11:55 WBC RBC Hgb 9.7 L Hct 30.9 L MCV MCH MCHC RDW Plt Count MPV Neut # (Auto) Lymph # (Auto) [place] # (Auto) Eos # (Auto) Baso # (Auto) Absolute Nucleated RBC Nucleated RBC % Sodium Potassium Chloride Carbon Dioxide Anion Gap BUN Creatinine Estimated GFR (MDRD) Glucose Calcium Phosphorus Magnesium - DIAGNOSTIC IMAGING Diagnostic Imaging Results: Final report reviewed - FOLLOW UP Follow Up: He was asked to follow-up with her primary care provider in 1 to 2 weeks she will need a referral to gastroenterology or general surgery for endoscopy to ensure her duodenal ulcers are healing. She was also asked to follow-up with her graphic artist to discuss when aspirin can be resumed after this endoscopy. - TIME SPENT Time Spent in Discharge (Minutes): 37"
[2020-07-02 12:20] LABS: HGB - HEMOGLOBIN 9.7 g/dL (12.0-16.0)
[2020-07-02] MEDS ORDERED: PROPOFOL 200 MG/20 ML VIAL IVP ONE (14:29)
[2020-07-02] MEDS ORDERED: KETAMINE 500 MG/10 ML VIAL IVP ONE (14:29)
== END 2020-07-02 14:30 | disposition home or self-care (01) | DRG 377 ==
LOC: ED 11:04 → ICU 12:52
PROVIDERS: ADMIT Internal Medicine; ATTEND Internal Medicine
PROC: 04HY32Z Insertion of Monitoring Device into Lower Artery, Percutaneous Approach (ICD-10-PCS; 2020-06-27)
PROC: 02HV33Z Insertion of Infusion Device into Superior Vena Cava, Percutaneous Approach (ICD-10-PCS; 2020-06-27)
PROC: 0DB98ZX Excision of Duodenum, Via Natural or Artificial Opening Endoscopic, Diagnostic (ICD-10-PCS; 2020-06-28)
PROC: 0DB68ZX Excision of Stomach, Via Natural or Artificial Opening Endoscopic, Diagnostic (ICD-10-PCS; 2020-06-28)
PROC: 0DB58ZX Excision of Esophagus, Via Natural or Artificial Opening Endoscopic, Diagnostic (ICD-10-PCS; 2020-06-28)
PROC: 0W3P8ZZ Control Bleeding in Gastrointestinal Tract, Via Natural or Artificial Opening Endoscopic (ICD-10-PCS; principal; 2020-06-28 08:00)
PROC: 30233N1 Transfusion of Nonautologous Red Blood Cells into Peripheral Vein, Percutaneous Approach (ICD-10-PCS; 2020-06-30)
DX: K92.1 Melena (principal); E86.0 Dehydration; E66.9 Obesity, unspecified; K26.4 Chronic or unspecified duodenal ulcer with hemorrhage; R57.8 Other shock; N17.0 Acute kidney failure with tubular necrosis; I24.8 Other forms of acute ischemic heart disease; D62 Acute posthemorrhagic anemia; Z68.41 Body mass index [BMI] 40.0-44.9, adult; N39.0 Urinary tract infection, site not specified; E87.2 Acidosis; B95.61 Methicillin susceptible Staphylococcus aureus infection as the cause of diseases classified elsewhere; E87.6 Hypokalemia; E87.5 Hyperkalemia; K75.89 Other specified inflammatory liver diseases; I12.9 Hypertensive chronic kidney disease with stage 1 through stage 4 chronic kidney disease, or unspecified chronic kidney disease; N18.9 Chronic kidney disease, unspecified; G40.909 Epilepsy, unspecified, not intractable, without status epilepticus; K29.70 Gastritis, unspecified, without bleeding; T39.395A Adverse effect of other nonsteroidal anti-inflammatory drugs [NSAID], initial encounter; E66.01 Morbid (severe) obesity due to excess calories; K21.00 Gastro-esophageal reflux disease with esophagitis, without bleeding; K44.9 Diaphragmatic hernia without obstruction or gangrene; I25.10 Atherosclerotic heart disease of native coronary artery without angina pectoris; F41.9 Anxiety disorder, unspecified; E78.00 Pure hypercholesterolemia, unspecified; R40.4 Transient alteration of awareness; T42.4X5A Adverse effect of benzodiazepines, initial encounter; Y92.009 Unspecified place in unspecified non-institutional (private) residence as the place of occurrence of the external cause; I73.9 Peripheral vascular disease, unspecified; G62.9 Polyneuropathy, unspecified; M19.90 Unspecified osteoarthritis, unspecified site; H54.7 Unspecified visual loss; Z96.653 Presence of artificial knee joint, bilateral; Z74.01 Bed confinement status; Z79.1 Long term (current) use of non-steroidal anti-inflammatories (NSAID); Z79.02 Long term (current) use of antithrombotics/antiplatelets; Z79.899 Other long term (current) drug therapy; I25.2 Old myocardial infarction; Z95.5 Presence of coronary angioplasty implant and graft
CPT/HCPCS: 36415; 36430; 70450; 71045; 74176; 80048; 80053; 80076; 81001; 82040; 82274; 82310; 82565; 83036; 83605; 83690; 83735; 84100; 84132; 84443; 84484; 85014; 85018; 85025; 85027; 86850; 86900; 86901; 86920; 87040; 87086; 87150; 87181; 93005; 93306; 96361; 96374; 99285; A9270; J7120; P9016; 80306; 80307; 80320; 80329; 81003

== ENCOUNTER 2020-07-06 08:00 | Outpatient (CLI) | payer MEDICARE ==
[2020-07-06 18:10] LABS: BASOPHILS # (AUTO) 0.1 10^3/uL (0.0-0.1); BASOPHILS % (AUTO) 0.8 %; EOSINOPHILS # (AUTO) 0.5 10^3/uL (0.0-0.7); EOSINOPHILS % (AUTO) 4.8 %; HGB - HEMOGLOBIN 9.6 g/dL (12.0-16.0); LYMPHOCYTES # (AUTO) 1.1 10^3/uL (1.5-3.5); LYMPHOCYTES % (AUTO) 10.3 %; MEAN CORPUSCULAR HEMOGLOBIN 27.7 pg (27.0-31.0); MEAN CORPUSCULAR HGB CONC 29.4 g/dL (32.0-36.0); MEAN CORPUSCULAR VOLUME 94.5 fL (81.0-99.0); MEAN PLATELET VOLUME 10.7 fL (7.9-10.8); MONOCYTES # (AUTO) 0.8 10^3/uL (0.0-1.0); MONOCYTES % (AUTO) 7.2 %; NEUTROPHILS # (AUTO) 8.3 10^3/uL (1.5-6.6); NEUTROPHILS % (AUTO) 76.3 %; PLT - PLATELET COUNT 392 10^3/uL (130-450); RED BLOOD COUNT 3.46 10^6/uL (4.20-5.40); WHITE BLOOD COUNT 10.9 x10^3/uL (4.8-10.8)
[2020-07-06 18:29] LABS: ALBUMIN 3.9 g/dL (3.2-5.5); ALBUMIN/GLOBULIN RATIO 1.2 (1.0-2.2); CALCIUM 9.1 mg/dL (8.5-10.3); CREATININE 1.1 mg/dL (0.4-1.0); TOTAL PROTEIN 7.2 g/dL (6.7-8.2)
== END 2020-07-06 23:59 | disposition home or self-care (01) ==
LOC: LAB.WCP 08:00
PROVIDERS: ATTEND Physician Assistant Medical
DX: K92.2 Gastrointestinal hemorrhage, unspecified (principal)
CPT/HCPCS: 36415; 80053; 82728; 85025

== ENCOUNTER 2020-07-06 16:34 | Outpatient (CLI) | payer MEDICARE ==
--- NOTE | 2020-07-06 17:09 | CT Report ---
PROCEDURE: HEAD WO INDICATIONS: LUMBAR RADICULOPATHY TECHNIQUE: Noncontrast 4.5 mm thick angled axial sections acquired from the foramen magnum to the vertex. For r adiation dose reduction, the following was used: automated exposure control, adjustment of mA and/or kV according to patient size. COMPARISON: None. FINDINGS: Image quality: Motion is present on multiple images, limiting areas of fine detail evaluation. The ventricular system and cortical sulci demonstrate atrophy, consistent for patient's stated age. There are areas of hyperintense T2/FLAIR signal in the periventricular and subcortical white matter. There is no acute intra or extra-axial fluid collection. No acute hemorrhage, mass lesion or midlin e shift. Brainstem is unremarkable. There are no areas of restricted diffusion. Globes are symmetr ical. Sinuses are aerated. Osseous structures are intact. CT IMPRESSION: 1. No acute intracranial process. 2. Moderate atrophy and chronic microvascular ischemic changes. The above findings were discussed with Ingrid Abdi on 07/06/2020 at 5:06 PM. Reviewed by: Ursula Camarena MD on 07/06/2020 5:08 PM PDT Approved by: Ursula Camarena MD on 07/06/2020 5:08 PM PDT Station ID: [id number]
--- NOTE | 2020-07-07 17:04 | XRAY Report ---
PROCEDURE: Lumbar Spine 2 View INDICATIONS: LUMBAR RADICULOPATHY TECHNIQUE: 3 views of the lumbar spine were acquired. COMPARISON: None. FINDINGS: Bones: 5 [id number] vertebrae are present. There is normal bony alignment. Convex left lumbar spine scoliosis. No vertebral body compression fractures. No suspicious bony lesions. Moderate L1-L2 , L2-L3, L3-L4 and L5-S1 degenerative disease. Mild L4-L5 degenerative disease. Moderate L2-L3, L3-L4 , L4-L5 and L5-S1 facet arthropathy. Mild L1-L2 facet arthropathy. Soft tissues: Overlying bowel gas pattern is normal. No suspicious soft tissue calcifications. IMPRESSION: 1. Convex left scoliosis. 2. Multilevel degenerative disc disease. 3. Multilevel facet arthropathy. 4. No fracture. No acute osseous lesion. If there is continued clinical concern for pathology, then M RI should be considered for further evaluation. Reviewed by: Lakeshia Sands MD, PhD on 07/07/2020 5:03 PM PDT Approved by: Lakeshia Sands MD, PhD on 07/07/2020 5:03 PM PDT Station ID: [id number]
== END 2020-07-06 16:35 | disposition home or self-care (01) ==
LOC: DI 16:34
PROVIDERS: ATTEND Physician Assistant Medical
DX: M51.16 Intervertebral disc disorders with radiculopathy, lumbar region (principal); M41.86 Other forms of scoliosis, lumbar region; I67.82 Cerebral ischemia
CPT/HCPCS: 70450; 72100

== ENCOUNTER 2020-09-23 18:22 | Outpatient (CLI) | payer MEDICARE | END 2020-09-23 18:23 | disposition home or self-care (01) | LOC: COV 18:22 | PROVIDERS: ATTEND Internal Medicine Gastroenterology | DX: Z01.812 Encounter for preprocedural laboratory examination (principal); K26.4 Chronic or unspecified duodenal ulcer with hemorrhage; Z20.828 Contact with and (suspected) exposure to other viral communicable diseases ==

== ENCOUNTER 2020-09-27 11:24 | Day surgery (SDC) | payer MEDICARE ==
--- NOTE | 2020-09-27 10:58 | ANESTHESIA ---
Pre-Anesthesia VS, & Labs - Diagnosis upper GI bleed, duodenal ulcer - Procedure EGD Height: 5 ft 7 in - NPO >8 hours - Is Patient ?: No - Lab Results Lab results reviewed: Yes Home Medications and Allergies Home Medications: Ambulatory Orders Aspirin [Aspirin EC] 81 mg PO DAILY 09/14/20 tiZANidine [Zanaflex] 4 mg PO DAILY 09/14/20 Temazepam 30 mg PO HS 01/19/14 Atorvastatin Calcium 80 mg PO DAILY PM 06/27/20 Carvedilol 12.5 mg PO BID 06/27/20 Furosemide 40 mg PO DAILY 06/27/20 Losartan Potassium 25 mg PO DAILY 06/27/20 Potassium Chloride 20 meq PO BID 06/27/20 Pregabalin [Lyrica] 150 mg PO DAILY 06/27/20 Topiramate 50 mg PO BID 06/27/20 Pregabalin [Lyrica] 300 mg PO QPM 06/28/20 Aspirin [Aspirin EC] 81 mg PO DAILY 09/14/20 tiZANidine [Zanaflex] 4 mg PO DAILY 09/14/20 Allergies/Adverse Reactions: Allergies Allergy/AdvReac Type Severity Reaction Status Date / Time pentazocine [From Talwin] AdvReac Emesis Verified 09/27/20 12:05 propoxyphene [From Darvon] AdvReac Emesis Verified 09/27/20 12:05 Anes History & Medical History - Anesthetic History Anesthesia Complications: reports: No previous complications Family history of Anesthesia Complications: Denies Family history of Malignant Hyperthermia: Denies - Medical History Cardiovascular: reports: Congestive heart failure, Hypertension, High cholesterol, Coronary artery disease, Peripheral Vascular Disease, [place] Pulmonary: reports: None Gastrointestinal: reports: GERD, GI bleed, Other Urinary: reports: Renal insuffiency Neuro: reports: None Musculoskeletal: reports: Osteoarthritis, Fibromyalgia Blood Disorders: reports: Anemia Skin: reports: None Smoking Status: Never smoker - Surgical History General: EGD Eyes Ears Nose Throat (EENT): Other Cardiothoracic: Coronary stent Gynecologic: section, Other Orthopedic: Knee replacement Exam General: Alert, Oriented x3, Cooperative Dental: WNL Mouth Openin Fingerbreadth Mallampati classification: III Thyromental Distance: 4-6 cm Respiratory: Lungs clear, Normal breath sounds, No respiratory distress, Decreased breath sounds Cardiovascular: Regular rate Neurological: Normal speech Mental/Cognitive Status: Alert/Oriented X3, Normal for patient Cognitive Status: Within normal limits Plan Anesthesia Type: MAC Consent for Procedure(s) Verified and Reviewed: Yes Code Status: Attempt Resuscitation ASA classification: 3-Severe systemic disease Is this case an emergency?: No
[~2020-09-27 11:24] MED LIST: GLYCOPYRROLATE 1 MG/5 ML VIAL ONE; KETAMINE 500 MG/10 ML VIAL ONE; LIDOCAINE-MPF 2% 5 ML VIAL ONE; MIDAZOLAM 2 MG/2 ML VIAL ONE; PROPOFOL 200 MG/20 ML VIAL IVP ONE; SODIUM CHLORIDE 0.9% 10 ML ONE
[2020-09-27] MEDS ORDERED: LACTATED RINGERS 1,000 ML IV ONE (11:33)
[2020-09-27] MEDS ORDERED: LIDO GARGLE 30 ML BOTTLE ONE (12:03)
[2020-09-27] MEDS ORDERED: LACTATED RINGERS 700 ML IV ONE (12:58)
[2020-09-27 13:26] VITALS: BP 138/76
--- NOTE | 2020-09-27 14:23 | ANESTHESIA POST OP EVALUATION ---
Anesthesia Post Eval - Post Anesthesia Eval Vitals: Last Vital Signs Temp 36.5 C 09/27/20 13:25 Pulse 77 09/27/20 13:25 Resp 16 09/27/20 13:25 BP 138/76 H 09/27/20 13:25 Pulse Ox 96 09/27/20 13:25 CV Function Including HR & BP: positive: Stable Pain Control: positive: Satisfactory Nausea & Vomiting: positive: Negative Mental Status: positive: Baseline Respiratory Status: Airway Patent Hydration Status: Satisfactory Anesthesia Complications: positive: None
== END 2020-09-27 11:25 | disposition home or self-care (01) ==
LOC: SDS 11:24
PROVIDERS: ATTEND Internal Medicine Gastroenterology
PROC: 0DB48ZX Excision of Esophagogastric Junction, Via Natural or Artificial Opening Endoscopic, Diagnostic (ICD-10-PCS; 2020-09-27)
PROC: 0DB98ZZ Excision of Duodenum, Via Natural or Artificial Opening Endoscopic (ICD-10-PCS; principal; 2020-09-27 11:30)
DX: Z09 Encounter for follow-up examination after completed treatment for conditions other than malignant neoplasm (principal); Z87.11 Personal history of peptic ulcer disease; K31.7 Polyp of stomach and duodenum; K21.9 Gastro-esophageal reflux disease without esophagitis; I11.0 Hypertensive heart disease with heart failure; I50.9 Heart failure, unspecified; I25.10 Atherosclerotic heart disease of native coronary artery without angina pectoris; I25.2 Old myocardial infarction
CPT/HCPCS: 43239; A9270; J7120

== ENCOUNTER 2020-10-27 10:20 | Outpatient (CLI) | payer MEDICARE | END 2020-10-27 10:21 | disposition home or self-care (01) | LOC: DI 10:20 | PROVIDERS: ATTEND Physician Assistant Medical | DX: I25.2 Old myocardial infarction (principal) | CPT/HCPCS: 93306 ==

== ENCOUNTER 2020-10-27 10:21 | Outpatient (CLI) | payer MEDICARE ==
--- NOTE | 2020-10-27 16:40 | Ultrasound Report ---
PROCEDURE: Carotid Doppler Complete INDICATIONS: LEG WEAKNESS TECHNIQUE: Color and pulse Doppler interrogation was performed of both carotid systems, with image documentation and velocity measurements. COMPARISON: None. FINDINGS: Right side: Common carotid artery peak systolic velocity: 50 cm/sec. Internal carotid artery peak systolic velocity: 57 cm/sec. Internal carotid artery end diastolic velocity: 22 cm/sec. External carotid artery peak systolic velocity: 58 cm/sec. ICA/CCA peak systolic ratio: 1.1 . Barney scale imaging description: Mild plaque at the bifurcation. Percent internal carotid artery stenosis: Less than 50% stenosis . Vertebral artery: Flow direction is antegrade. Left side: Common carotid artery peak systolic velocity: 76 cm/sec. Internal carotid artery peak systolic velocity: 52 cm/sec. Internal carotid artery end diastolic velocity: 13 cm/sec. External carotid artery peak systolic velocity: 71 cm/sec. ICA/CCA peak systolic ratio: 0.7 . Barney scale imaging description: Mild plaque at the bifurcation. Percent internal carotid artery stenosis: Less than 50% . Vertebral artery: Flow direction is antegrade. IMPRESSION: Less than 50% stenosis of the internal carotid arteries bilaterally. The estimate of stenosis included in the report of the imaging study was calculated using the NASCET method Reviewed by: Ursula Camarena MD on 10/27/2020 4:39 PM PST Approved by: Ursula Camarena MD on 10/27/2020 4:39 PM PST Station ID: [id number]
== END 2020-10-27 10:22 | disposition home or self-care (01) ==
LOC: DI 10:21
PROVIDERS: ATTEND Physician Assistant Medical
DX: I65.23 Occlusion and stenosis of bilateral carotid arteries (principal); R29.898 Other symptoms and signs involving the musculoskeletal system; E78.5 Hyperlipidemia, unspecified
CPT/HCPCS: 93880

== ENCOUNTER 2020-11-24 16:32 | Outpatient (CLI) | payer MEDICARE ==
[2020-11-24 20:29] LABS: CHOL/HDL RATIO 2.4 (<4.4); CHOLESTEROL 158 mg/dL; HDL CHOLESTEROL 66 mg/dL; LDL CHOLESTEROL,CALCULATED 68 mg/dL; VLDL CHOLESTEROL 24 mg/dL
== END 2020-11-24 16:33 | disposition home or self-care (01) ==
LOC: LAB.S 16:32
PROVIDERS: ATTEND Internal Medicine
DX: E78.5 Hyperlipidemia, unspecified (principal)
CPT/HCPCS: 36415; 80061; 83721

== ENCOUNTER 2021-04-22 10:46 | Outpatient (CLI) | payer MEDICARE ==
[2021-04-22 14:54] LABS: BASOPHILS # (AUTO) 0.1 10^3/uL (0.0-0.1); BASOPHILS % (AUTO) 1.2 %; EOSINOPHILS # (AUTO) 0.3 10^3/uL (0.0-0.7); EOSINOPHILS % (AUTO) 6.2 %; HGB - HEMOGLOBIN 13.4 g/dL (12.0-16.0); LYMPHOCYTES % (AUTO) 18.5 %; MEAN CORPUSCULAR HEMOGLOBIN 32.1 pg (27.0-31.0); MEAN CORPUSCULAR HGB CONC 32.7 g/dL (32.0-36.0); MEAN CORPUSCULAR VOLUME 98.3 fL (81.0-99.0); MEAN PLATELET VOLUME 10.4 fL (7.9-10.8); MONOCYTES # (AUTO) 0.5 10^3/uL (0.0-1.0); MONOCYTES % (AUTO) 10.4 %; NEUTROPHILS # (AUTO) 3.3 10^3/uL (1.5-6.6); NEUTROPHILS % (AUTO) 63.5 %; PLT - PLATELET COUNT 293 10^3/uL (130-450); RED BLOOD COUNT 4.17 10^6/uL (4.20-5.40); RED CELL DISTRIBUTION WIDTH 13.4 % (12.0-15.0); WHITE BLOOD COUNT 5.2 x10^3/uL (4.8-10.8)
[2021-04-22 15:19] LABS: % IRON SATURATION 25 % (20-50); ALBUMIN 4.2 g/dL (3.2-5.5); ALBUMIN/GLOBULIN RATIO 1.1 (1.0-2.2); ALKALINE PHOSPHATASE 59 IU/L (42-121); ALT ALANINE AMINOTRANSFERASE 20 IU/L (10-60); AST ASPARTATE AMINOTRANSFERASE 17 IU/L (10-42); BUN - BLOOD UREA NITROGEN 14 mg/dL (6-20); CALCIUM 9.6 mg/dL (8.5-10.3); CARBON DIOXIDE - CO2 25 mmol/L (21-32); CHLORIDE 103 mmol/L (101-111); CHOL/HDL RATIO 2.2 (<4.4); CHOLESTEROL 134 mg/dL; GFR - MDRD 55 (>89); GLUCOSE 110 mg/dL (70-100); HDL CHOLESTEROL 61 mg/dL; IRON 71 ug/dL (28-170); LDL CHOLESTEROL,CALCULATED 50 mg/dL; LDL/HDL RATIO 0.8 (<4.4); POTASSIUM 3.9 mmol/L (3.5-5.0); SODIUM 138 mmol/L (135-145); TOTAL IRON BINDING CAPACITY 288 ug/dL (250-450); TOTAL PROTEIN 7.9 g/dL (6.7-8.2); TRANSFERRIN 206 mg/dL (192-382); TRIGLYCERIDES 114 mg/dL; VLDL CHOLESTEROL 23 mg/dL
== END 2021-04-22 10:47 | disposition home or self-care (01) ==
LOC: LAB.S 10:46
PROVIDERS: ATTEND Physician Assistant Medical
DX: E78.5 Hyperlipidemia, unspecified (principal); K92.2 Gastrointestinal hemorrhage, unspecified; D62 Acute posthemorrhagic anemia
CPT/HCPCS: 36415; 80053; 80061; 82728; 83540; 83721; 84466; 85025

== ENCOUNTER 2021-08-11 13:39 | Outpatient (CLI) | payer MEDICARE ==
[2021-08-11 20:10] LABS: ALBUMIN 4.1 g/dL (3.2-5.5); ALBUMIN/GLOBULIN RATIO 1.1 (1.0-2.2); CALCIUM 9.9 mg/dL (8.5-10.3); CREATININE 0.9 mg/dL (0.4-1.0); POTASSIUM 4.3 mmol/L (3.5-5.0)
[2021-08-11 20:12] LABS: BASOPHILS # (AUTO) 0.1 10^3/uL (0.0-0.1); BASOPHILS % (AUTO) 0.8 %; EOSINOPHILS # (AUTO) 0.2 10^3/uL (0.0-0.7); EOSINOPHILS % (AUTO) 3.5 %; HCT - HEMATOCRIT 43.6 % (37.0-47.0); HGB - HEMOGLOBIN 14.4 g/dL (12.0-16.0); LYMPHOCYTES # (AUTO) 0.7 10^3/uL (1.5-3.5); LYMPHOCYTES % (AUTO) 10.4 %; MEAN CORPUSCULAR VOLUME 99.8 fL (81.0-99.0); MEAN PLATELET VOLUME 10.5 fL (7.9-10.8); MONOCYTES # (AUTO) 0.7 10^3/uL (0.0-1.0); MONOCYTES % (AUTO) 10.4 %; NEUTROPHILS % (AUTO) 74.6 %; PLT - PLATELET COUNT 260 10^3/uL (130-450); RED BLOOD COUNT 4.37 10^6/uL (4.20-5.40); RED CELL DISTRIBUTION WIDTH 13.6 % (12.0-15.0); WHITE BLOOD COUNT 6.7 x10^3/uL (4.8-10.8)
== END 2021-08-11 13:40 | disposition home or self-care (01) ==
LOC: LAB.S 13:39
PROVIDERS: ATTEND Physician Assistant Medical
DX: E87.5 Hyperkalemia (principal); D62 Acute posthemorrhagic anemia
CPT/HCPCS: 36415; 80053; 82728; 85025

== ENCOUNTER 2021-08-23 14:56 | Outpatient (CLI) | payer MEDICARE ==
[2021-08-23 21:01] LABS: ESTIMATED AVERAGE GLUCOSE 120 mg/dL (70-100); HEMOGLOBIN A1c% 5.8 % (4.27-6.07)
== END 2021-08-23 23:59 | disposition home or self-care (01) ==
LOC: LAB.WCP 14:56
PROVIDERS: ATTEND Physician Assistant Medical
DX: R73.9 Hyperglycemia, unspecified (principal)
CPT/HCPCS: 36415; 83036

== ENCOUNTER 2021-11-07 17:05 | Outpatient (CLI) | payer MEDICARE ==
[2021-11-07 20:03] LABS: BASOPHILS # (AUTO) 0.1 10^3/uL (0.0-0.1); BASOPHILS % (AUTO) 0.7 %; EOSINOPHILS # (AUTO) 0.4 10^3/uL (0.0-0.7); EOSINOPHILS % (AUTO) 4.4 %; HCT - HEMATOCRIT 41.9 % (37.0-47.0); HGB - HEMOGLOBIN 13.7 g/dL (12.0-16.0); LYMPHOCYTES # (AUTO) 1.1 10^3/uL (1.5-3.5); LYMPHOCYTES % (AUTO) 13.2 %; MEAN CORPUSCULAR HEMOGLOBIN 32.1 pg (27.0-31.0); MEAN CORPUSCULAR HGB CONC 32.7 g/dL (32.0-36.0); MEAN CORPUSCULAR VOLUME 98.1 fL (81.0-99.0); MEAN PLATELET VOLUME 10.7 fL (7.9-10.8); MONOCYTES # (AUTO) 0.9 10^3/uL (0.0-1.0); MONOCYTES % (AUTO) 10.4 %; NEUTROPHILS # (AUTO) 5.8 10^3/uL (1.5-6.6); NEUTROPHILS % (AUTO) 71.1 %; PLT - PLATELET COUNT 304 10^3/uL (130-450); RED BLOOD COUNT 4.27 10^6/uL (4.20-5.40); RED CELL DISTRIBUTION WIDTH 13.5 % (12.0-15.0); WHITE BLOOD COUNT 8.2 x10^3/uL (4.8-10.8)
[2021-11-07 20:12] LABS: ALBUMIN 4.2 g/dL (3.2-5.5); ALBUMIN/GLOBULIN RATIO 1.1 (1.0-2.2); BILIRUBIN,TOTAL 0.7 mg/dL (0.2-1.0); CALCIUM 9.3 mg/dL (8.5-10.3); POTASSIUM 3.8 mmol/L (3.5-5.0); TOTAL PROTEIN 8.2 g/dL (6.7-8.2)
== END 2021-11-07 17:06 | disposition home or self-care (01) ==
LOC: LAB.S 17:05
PROVIDERS: ATTEND Internal Medicine
DX: E78.5 Hyperlipidemia, unspecified (principal)
CPT/HCPCS: 36415; 80053; 85025

== ENCOUNTER 2022-04-07 11:26 | Outpatient (CLI) | payer MEDICARE ==
[2022-04-07 15:00] LABS: BASOPHILS # (AUTO) 0.1 10^3/uL (0.0-0.1); BASOPHILS % (AUTO) 0.9 %; EOSINOPHILS # (AUTO) 0.4 10^3/uL (0.0-0.7); EOSINOPHILS % (AUTO) 6.9 %; HGB - HEMOGLOBIN 13.5 g/dL (12.0-16.0); LYMPHOCYTES % (AUTO) 18.6 %; MEAN CORPUSCULAR HGB CONC 33.8 g/dL (32.0-36.0); MEAN CORPUSCULAR VOLUME 97.8 fL (81.0-99.0); MEAN PLATELET VOLUME 10.7 fL (7.9-10.8); MONOCYTES # (AUTO) 0.7 10^3/uL (0.0-1.0); MONOCYTES % (AUTO) 12.1 %; NEUTROPHILS # (AUTO) 3.3 10^3/uL (1.5-6.6); NEUTROPHILS % (AUTO) 61.3 %; PLT - PLATELET COUNT 231 10^3/uL (130-450); RED BLOOD COUNT 4.09 10^6/uL (4.20-5.40); WHITE BLOOD COUNT 5.4 x10^3/uL (4.8-10.8)
[2022-04-07 15:19] LABS: ALBUMIN 3.9 g/dL (3.2-5.5); ALBUMIN/GLOBULIN RATIO 1.1 (1.0-2.2); ALKALINE PHOSPHATASE 46 IU/L (42-121); ALT ALANINE AMINOTRANSFERASE 26 IU/L (10-60); AST ASPARTATE AMINOTRANSFERASE 25 IU/L (10-42); BILIRUBIN,TOTAL 1.1 mg/dL (0.2-1.0); BUN - BLOOD UREA NITROGEN 18 mg/dL (6-20); CALCIUM 9.3 mg/dL (8.5-10.3); CARBON DIOXIDE - CO2 26 mmol/L (21-32); CHLORIDE 101 mmol/L (101-111); CHOL/HDL RATIO 2.7 (<4.4); CHOLESTEROL 134 mg/dL; CREATININE 1.2 mg/dL (0.4-1.0); GFR - MDRD 44 (>89); GLUCOSE 136 mg/dL (70-100); HDL CHOLESTEROL 50 mg/dL; LDL CHOLESTEROL,CALCULATED 57 mg/dL; LDL/HDL RATIO 1.1 (<4.4); POTASSIUM 4.3 mmol/L (3.5-5.0); SODIUM 138 mmol/L (135-145); TOTAL PROTEIN 7.5 g/dL (6.7-8.2); TRIGLYCERIDES 137 mg/dL; VLDL CHOLESTEROL 27 mg/dL
== END 2022-04-07 11:27 | disposition home or self-care (01) ==
LOC: LAB.S 11:26
PROVIDERS: ATTEND Physician Assistant Medical
DX: I10 Essential (primary) hypertension (principal); I25.10 Atherosclerotic heart disease of native coronary artery without angina pectoris
CPT/HCPCS: 36415; 80053; 80061; 83721; 85025

== ENCOUNTER 2022-04-26 16:58 | Outpatient (CLI) | payer MEDICARE ==
[2022-04-26 21:28] LABS: ESTIMATED AVERAGE GLUCOSE 128 mg/dL (70-100); HEMOGLOBIN A1c% 6.1 % (4.27-6.07)
== END 2022-04-26 16:59 | disposition home or self-care (01) ==
LOC: LAB.N 16:58
PROVIDERS: ATTEND Physician Assistant Medical
DX: R73.9 Hyperglycemia, unspecified (principal)
CPT/HCPCS: 36415; 83036

== ENCOUNTER 2022-11-13 12:13 | Outpatient (CLI) | payer MEDICARE ==
[2022-11-13 15:01] LABS: CALCIUM 9.7 mg/dL (8.5-10.3); POTASSIUM 4.2 mmol/L (3.5-5.0)
[2022-11-13 20:30] LABS: ESTIMATED AVERAGE GLUCOSE 137 mg/dL (70-100); HEMOGLOBIN A1c% 6.4 % (4.27-6.07)
== END 2022-11-13 12:14 | disposition home or self-care (01) ==
LOC: LAB.S 12:13
PROVIDERS: ATTEND Physician Assistant Medical
DX: R73.9 Hyperglycemia, unspecified (principal)
CPT/HCPCS: 36415; 80048; 83036

== ENCOUNTER 2022-11-15 17:40 | Emergency (ER) | payer MEDICARE ==
[2022-11-15] MEDS ORDERED: SODIUM CHLORIDE 0.9% 1,000 ML IV STA (18:10)
[2022-11-15] MEDS ORDERED: ONDANSETRON 4 MG/2 ML VIAL IVP STA (18:10)
[2022-11-15 18:39] LABS: BASOPHILS # (AUTO) 0.1 10^3/uL (0.0-0.1); BASOPHILS % (AUTO) 0.4 %; EOSINOPHILS # (AUTO) 0.1 10^3/uL (0.0-0.7); EOSINOPHILS % (AUTO) 0.4 %; HCT - HEMATOCRIT 48.1 % (37.0-47.0); HGB - HEMOGLOBIN 15.5 g/dL (12.0-16.0); LYMPHOCYTES # (AUTO) 0.6 10^3/uL (1.5-3.5); MEAN CORPUSCULAR HEMOGLOBIN 32.2 pg (27.0-31.0); MEAN CORPUSCULAR HGB CONC 32.2 g/dL (32.0-36.0); MEAN CORPUSCULAR VOLUME 99.8 fL (81.0-99.0); MEAN PLATELET VOLUME 10.2 fL (7.9-10.8); MONOCYTES # (AUTO) 0.4 10^3/uL (0.0-1.0); MONOCYTES % (AUTO) 3.8 %; NEUTROPHILS # (AUTO) 10.1 10^3/uL (1.5-6.6); PLT - PLATELET COUNT 254 10^3/uL (130-450); RED BLOOD COUNT 4.82 10^6/uL (4.20-5.40); RED CELL DISTRIBUTION WIDTH 13.2 % (12.0-15.0); WHITE BLOOD COUNT 11.2 x10^3/uL (4.8-10.8)
[2022-11-15] MEDS ORDERED: METOPROLOL 5 MG/5 ML VIAL IVP STA (18:46)
[2022-11-15 18:48] LABS: ALBUMIN 4.4 g/dL (3.2-5.5); BILIRUBIN,TOTAL 1.1 mg/dL (0.2-1.0); CALCIUM 9.6 mg/dL (8.5-10.3); CREATININE 1.2 mg/dL (0.4-1.0); POTASSIUM 4.1 mmol/L (3.5-5.0); TOTAL PROTEIN 8.6 g/dL (6.7-8.2)
[2022-11-15] MEDS ORDERED: METOPROLOL TARTRATE 50 MG TABLET PO STA (19:47)
[2022-11-15 20:10] VITALS: BP 124/95
--- NOTE | 2022-11-15 20:17 | ED Physician Documentation ---
History of Present Illness - Stated complaint Stated Complaint: HBP,VOMITING,NAUSEA - Chief complaint Chief Complaint: Abd Pain - History obtained from History obtained from: Patient, Family - Additonal information Additional information: The patient comes to the emergency department chief complaint of vomiting. She states has been going on throughout most of the day, though she did seem to feel okay when she got up this morning. Her states that the patient has had some diarrhea for a couple of days preceding. The patient does note that she did get some elevated blood pressure readings earlier in the evening and that was her biggest concern that brought her in here tonight. She denies any other symptoms. The patient is mostly in bed, due to chronic pain and deconditioning. She does ambulate somewhat with a walker. She states that today when she is got up to ambulate, she has felt dizzy. She denies any chest pain or shortness of breath. No fevers or chills. She states that she is otherwise fairly healthy. No other complaints at this time. 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 : Renal insuffiency HEENT: Chronic vision loss, Other Psych: Depression, Anxiety, Post traumatic stress disorder Musculoskeletal: Osteoarthritis, Fibromyalgia Derm: None - Past Surgical History Past Surgical History: Yes Ortho: Knee replacement /CONSULTING PROPERTY MANAGER: section, Other Cardiovascular: Coronary stent HEENT: Other - Present Medications Home Medications: Ambulatory Orders Medication Instructions Recorded Confirmed Temazepam 30 mg PO HS 01/19/14 09/14/20 Atorvastatin Calcium 80 mg PO DAILY PM 06/27/20 09/14/20 Carvedilol 12.5 mg PO BID 06/27/20 09/14/20 Furosemide 40 mg PO DAILY 06/27/20 09/14/20 Losartan Potassium 25 mg PO DAILY 06/27/20 09/14/20 Potassium Chloride 20 meq PO BID 06/27/20 09/14/20 Pregabalin [Lyrica] 150 mg PO DAILY 06/27/20 09/14/20 Topiramate 50 mg PO BID 06/27/20 09/14/20 Pregabalin [Lyrica] 300 mg PO QPM 06/28/20 09/14/20 Pantoprazole [Protonix] 40 mg PO BID #60 tablet 07/02/20 09/14/20 Aspirin [Aspirin EC] 81 mg PO DAILY 09/14/20 09/14/20 tiZANidine [Zanaflex] 4 mg PO DAILY 09/14/20 09/14/20 Ondansetron Odt [Zofran] 4 mg TL Q6H PRN #10 tablet 11/15/22 - Allergies Allergies/Adverse Reactions: Allergies Allergy/AdvReac Type Severity Reaction Status Date / Time pentazocine [From Talwin] AdvReac Emesis Verified 11/15/22 17:59 propoxyphene [From Darvon] AdvReac Emesis Verified 11/15/22 17:59 - Social History Does the pt smoke?: No Smoking Status: Never smoker Does the pt drink ETOH?: No Does the pt have substance abuse?: No - Immunizations Immunizations are current?: Yes - POLST Patient has POLST: No PD ED PE NORMAL - Vitals Vital signs reviewed: Yes - General General: Alert and oriented X 3, No acute distress, Well developed/nourished, Other (Obese patient, otherwise well-appearing and in no apparent distress.) - HEENT HEENT: Atraumatic, PERRL, EOMI, Moist mucous membranes - Neck Neck: Supple, no meningeal sign - Cardiac Cardiac: RRR, No murmur - Respiratory Respiratory: No respiratory distress, Clear bilaterally - Abdomen Abdomen: Soft, Non tender, Other (Obese abdomen) - Derm Derm: Normal color, Warm and dry, No rash - Extremities Extremities: No deformity, No edema - Neuro Neuro: Other (Grossly intact) - Psych Psych: Normal mood, Normal affect Results - Vitals Vitals: Oxygen O2 Source Room air - Labs Labs: Laboratory Tests 11/15/22 11/15/22 18:24 18:24 WBC 11.2 H RBC 4.82 Hgb 15.5 Hct 48.1 H MCV 99.8 H MCH 32.2 H MCHC 32.2 RDW 13.2 Plt Count 254 MPV 10.2 Neut # (Auto) 10.1 H Lymph # (Auto) 0.6 L [place] # (Auto) 0.4 Eos # (Auto) 0.1 Baso # (Auto) 0.1 Absolute Nucleated RBC 0.00 Nucleated RBC % 0.0 Sodium 139 Potassium 4.1 Chloride 102 Carbon Dioxide 27 Anion Gap 10.0 BUN 16 Creatinine 1.2 H Estimated GFR (MDRD) 44 L Glucose 174 H Calcium 9.6 Total Bilirubin 1.1 H AST 31 ALT 38 Alkaline Phosphatase 52 Total Protein 8.6 H Albumin 4.4 Globulin 4.2 Albumin/Globulin Ratio 1.0 Lipase 40 PD Medical Decision Making - ED course Complexity details: reviewed results, re-evaluated patient, considered ave ahumada, d/w patient ED course: The patient was worked up with laboratory studies including CBC and ER abdominal panel which were ordered and reviewed by me. She was treated symptomatically with IV fluids and Zofran. She was also treated for her elevated blood pressure initially with an IV dose of metoprolol since she was nauseated and could not hold down oral meds, and later, with an oral dose of metoprolol. The patient had good response to this. I felt she was stable for discharge home, as by review of her labs, she was found to have no significant abnormalities and no emergent condition. I have advised her and her that the patient should follow-up with her primary doctor to discuss better blood pressure control; However, since the blood pressure has really only been elevated today, it is not clear whether further medication in this regard will be needed. We have discussed the usual indications for return. Departure - Departure Disposition: 01 Home, Self Care Clinical Impression: Vomiting Qualifiers: Vomiting type: bilious vomiting Nausea presence: with nausea Qualified Code(s): R11.14 - Bilious vomiting Hypertension Qualifiers: Hypertension type: unspecified Qualified Code(s): I10 - Essential (primary) hypertension Condition: Stable Instructions: ED HTN Established, ED Nausea Vomiting Prescriptions: Ondansetron Odt [Zofran] 4 mg TL Q6H PRN #10 tablet PRN Reason: Nausea / Vomiting Comments: Your blood pressures are high in the emergency department today, but not dangerously so, and you do not have any evidence of stress or damage to your vital organs because of your blood pressure. As far as the nausea and vomiting, you most likely have one of the many viruses that are going around and causing such symptoms. We have given you a dose of blood pressure medication today, and you should for now continue on your usual doses. Short-term elevation of the blood pressure is not an indication for making adjustments to your home regimen from the emergency department, and if you have further concerns about the medications you are on for blood pressure, you should talk to your primary doctor about this. As far as the nausea and vomiting, you may take the nausea medication we have given you in the form of a prepack overnight if needed. A prescription for the same has been electronically transmitted to the [facility] pharmacy in [place]. Please drink plenty of clear fluids and do not try to eat any food until you can tolerate clear liquids for 24 hours. Discharge Date/Time: 11/15/22 21:05
[2022-11-15] MEDS ORDERED: ONDANSETRON ODT 4 MG Prepack 2 TL PRN (20:24)
== END 2022-11-15 21:05 | disposition home or self-care (01) ==
LOC: ED 17:40
DX: I10 Essential (primary) hypertension (principal); R11.14 Bilious vomiting
CPT/HCPCS: 36415; 80053; 83690; 85025; 96361; 96374; 96375; 99284; A9270

== ENCOUNTER 2022-12-27 11:08 | Inpatient (IN) | payer MEDICARE ==
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
[2022-12-27 11:48] LABS: BASOPHILS # (AUTO) 0.1 10^3/uL (0.0-0.1); BASOPHILS % (AUTO) 1.2 %; EOSINOPHILS # (AUTO) 0.6 10^3/uL (0.0-0.7); EOSINOPHILS % (AUTO) 8.9 %; HCT - HEMATOCRIT 44.1 % (37.0-47.0); HGB - HEMOGLOBIN 14.1 g/dL (12.0-16.0); LYMPHOCYTES # (AUTO) 1.3 10^3/uL (1.5-3.5); LYMPHOCYTES % (AUTO) 19.4 %; MEAN CORPUSCULAR HEMOGLOBIN 32.9 pg (27.0-31.0); MEAN CORPUSCULAR VOLUME 102.8 fL (81.0-99.0); MEAN PLATELET VOLUME 10.4 fL (7.9-10.8); MONOCYTES # (AUTO) 0.7 10^3/uL (0.0-1.0); MONOCYTES % (AUTO) 10.9 %; NEUTROPHILS % (AUTO) 59.5 %; PLT - PLATELET COUNT 245 10^3/uL (130-450); RED BLOOD COUNT 4.29 10^6/uL (4.20-5.40); RED CELL DISTRIBUTION WIDTH 13.5 % (12.0-15.0); WHITE BLOOD COUNT 6.7 x10^3/uL (4.8-10.8)
[2022-12-27 11:56] LABS: VBG PH 7.254 (7.31-7.41); VBG PO2 61.8 mmHg (25-47)
[2022-12-27 11:57] LABS: VBG OXYGEN SATURATION 89.1 % (60-80)
[2022-12-27 12:03] LABS: D-DIMER 313.1 ng/mL (200.0-255.0)
[2022-12-27 12:08] LABS: INR 1.1 (0.8-1.2)
[2022-12-27 12:17] LABS: ALBUMIN 3.8 g/dL (3.2-5.5); ALBUMIN/GLOBULIN RATIO 1.1 (1.0-2.2); BILIRUBIN,TOTAL 1.1 mg/dL (0.2-1.0); CALCIUM 9.1 mg/dL (8.5-10.3); CREATININE 1.5 mg/dL (0.4-1.0); MAGNESIUM 2.3 mg/dL (1.7-2.8); PHOSPHORUS 4.7 mg/dL (2.5-4.6); POTASSIUM 4.5 mmol/L (3.5-5.0); TOTAL PROTEIN 7.4 g/dL (6.7-8.2)
[2022-12-27 12:21] LABS: BILIRUBIN,URINE NEGATIVE (NEGATIVE); GLUCOSE, URINE (UA) NEGATIVE (NEGATIVE); KETONES,URINE (UA) NEGATIVE (NEGATIVE); LEUKOCYTE ESTERASE, URINE NEGATIVE (NEGATIVE); NITRITE,URINE NEGATIVE (NEGATIVE); OCCULT BLOOD,URINE MODERATE (NEGATIVE); PROTEIN,URINE NEGATIVE (NEGATIVE); UROBILINOGEN,URINE 0.2 (NORMAL) E.U./dL (NORMAL)
[2022-12-27 12:24] LABS: CLARITY,URINE CLEAR (CLEAR)
[2022-12-27 12:35] LABS: BACTERIA,URINE Few /HPF (None Seen); SQUAMOUS EPITHELIAL CELL,UR FEW Squamous (<= Few)
[2022-12-27 12:48] LABS: B. PARAPERTUSSIS- RESP PCR PAN NOT DETECTED; B. PERTUSSIS- RESP PCR PANEL NOT DETECTED; C. PNEUMONIAE- RESP PCR PANEL NOT DETECTED; CORONAVIRUS 229E-RESP PCR NOT DETECTED; CORONAVIRUS HKU1-RESP PCR NOT DETECTED; CORONAVIRUS NL63-RESP PCR NOT DETECTED; CORONAVIRUS OC43-RESP PCR NOT DETECTED; HUMAN METAPNEUMOVIRUS NOT DETECTED; INFLUENZA A- RESP PCR PANEL NOT DETECTED; INFLUENZA B - RESP PCR PANEL NOT DETECTED; M. PNEUMONIAE- RESP PCR PANEL NOT DETECTED; PARAINFLUENZA VIRUS 1 NOT DETECTED; PARAINFLUENZA VIRUS 2 NOT DETECTED; PARAINFLUENZA VIRUS 3 NOT DETECTED; PARAINFLUENZA VIRUS 4 NOT DETECTED; RHINOVIRUS/ENTEROVIRUS NOT DETECTED; RSV- RESP PCR PANEL NOT DETECTED; SARS-CoV-2 -RESP PCR PANEL NOT DETECTED
[2022-12-27] MEDS ORDERED: iohexoL-300 100 ML VIAL ONE (12:52)
--- NOTE | 2022-12-27 12:57 | XRAY Report ---
PROCEDURE: Chest 1 View X-Ray INDICATIONS: shock TECHNIQUE: One view of the chest was acquired. COMPARISON: None. FINDINGS: Surgical changes and devices: None. Lungs and pleura: Small left pleural effusion is seen. No pneumothorax. There is mild pulmonary vasc ular congestion. Underlying bilateral infrahilar infiltrates cannot be excluded. Mediastinum: Tortuous thoracic aorta is seen. Heart size is enlarged. Bones and chest wall: No suspicious bony lesions. Overlying soft tissues appear unremarkable. IMPRESSION: Mild congestion and mild pulmonary edema. Cannot rule out underlying infrahilar infiltrates. No pneum othorax. Small left pleural effusion. Reviewed by: Jamie Jones MD on 12/27/2022 12:55 PM PDT Approved by: Jamie Jones MD on 12/27/2022 12:55 PM PDT Station ID: [id number]
--- NOTE | 2022-12-27 13:43 | CT Report ---
PROCEDURE: HEAD WO INDICATIONS: poss facial droop TECHNIQUE: Noncontrast 4.5 mm thick angled axial sections acquired from the foramen magnum to the vertex. For r adiation dose reduction, the following was used: automated exposure control, adjustment of mA and/or kV according to patient size. COMPARISON: None. FINDINGS: Image quality: Excellent. CSF spaces: Basal cisterns are patent. No extra-axial fluid collections. Ventricles are normal in size and shape. Brain: No midline shift. No intracranial masses or hemorrhage. Barney-white matter interface is norm al. Skull and face: Calvarium and visualized facial bones are intact, without suspicious lesions. Sinuses: Visualized sinuses and mastoids are clear. IMPRESSION: 1. No CT evidence of acute intracranial bleed, midline shift or mass effect. No definite CT evidence of acute infarct. If indicated, MRI of brain can be done for further evaluation. 2. Postsurgical changes in bilateral temporal bones. No acute skull fracture. Reviewed by: Jamie Jones MD on 12/27/2022 1:41 PM PDT Approved by: Jamie Jones MD on 12/27/2022 1:41 PM PDT Station ID: [id number]
--- NOTE | 2022-12-27 13:54 | CT Report ---
PROCEDURE: ANGIO CHEST W/WO INDICATIONS: pe protocol, shock, high dimer CONTRAST: 100ml Omnipaque 300 TECHNIQUE: After the administration of intravenous contrast, 2 mm axial images were acquired from the pulmonary apices to the posterior costophrenic angles during the arterial phase. In addition, 1 mm lung kernel and 5 mm soft tissue kernel reconstructions were performed. 3-dimensional coronal oblique maximum int ensity projection (MIP) reformats, 8 mm axial MIP, and 5 mm coronal and sagittal MPR reformats were t hen performed through the thorax. For radiation dose reduction, the following was used: automated exp osure control, adjustment of mA and/or kV according to patient size. COMPARISON: Chest radiograph dated FINDINGS: Image quality: Excellent. Pulmonary arteries: Pulmonary arteries are normal in size, and demonstrate no intraluminal filling d efects to suggest central pulmonary embolism. Lungs and pleura: Ill-defined airspace opacities are seen scattered in posterior medial aspect of yanick ateral lower lobes. Small infiltrates/atelectasis in posterior aspect of left upper lobe is also seen . Dependent atelectasis is seen in left upper lobe and middle lobe. No pleural effusions or pneumotho rax. Central and peripheral airways are patent. Mediastinum: Heart size is enlarged, without pericardial effusion. Mildly prominent mediastinal lymp h nodes are seen. Thoracic aorta is normal in caliber and enhancement. Esophagus is normal in calibe r, without hiatal hernia. Bones and chest wall: No suspicious bony lesions. Ribs and thoracic spine appear intact throughout. No axillary or supraclavicular adenopathy. The thyroid is normal in size and there are no incident al findings. Abdomen: Visualized upper abdominal solid organs appear normal in the early arterial phase of enhanc ement. IMPRESSION: 1. No evidence of central pulmonary emboli. No thoracic aortic aneurysm or gross dissection. 2. Extensive airspace opacities in posterior and medial aspect of bilateral lower lobes and left uppe r lobe suggestive of multilobar infiltrates. No pleural effusion or pneumothorax. Airway is patent. 3. Cardiomegaly, no pericardial effusion. 4. Enlarged mediastinal lymph nodes suggestive of reactive inflammatory lymphadenopathy. CLINICAL RECOMMENDATION STATEMENTS: In patients <35 years with an ITN detected on CT, MRI, or extrathyroidal ultrasound, the Committee re commends further evaluation with dedicated thyroid ultrasound if the nodule is "e1 cm and has no susp icious imaging features, and if the patient has normal life expectancy. In patients "e35 years with an ITN detected on CT, MRI, or extrathyroidal ultrasound, the Committee r ecommends further evaluation with dedicated thyroid ultrasound if the nodule is "e1.5 cm and has no s uspicious imaging features, and if the patient has normal life expectancy. (ACR, 2014) Reviewed by: Jamie Jones MD on 12/27/2022 1:53 PM PDT Approved by: Jamie Jones MD on 12/27/2022 1:53 PM PDT Station ID: [id number]
--- NOTE | 2022-12-27 13:59 | CT Report ---
PROCEDURE: ABDOMEN/PELVIS W INDICATIONS: iv only, shock, unknown source CONTRAST: 100ml Omnipaque 300 TECHNIQUE: After the administration of IV contrast, 5 mm thick sections acquired from the diaphragms to the symp hysis. 5 mm thick coronal and sagittal reformats were acquired. For radiation dose reduction, the f ollowing was used: automated exposure control, adjustment of mA and/or kV according to patient size. COMPARISON: None. FINDINGS: Image quality: Excellent. ABDOMEN: Lung bases: Heart size is enlarged, no pericardial effusion. Patchy airspace opacities in visualized bilateral lower lung acevedo are seen suggestive of patchy infiltrates versus atelectasis. Solid organs: Liver and spleen are normal in size and enhancement. Gallbladder is within normal monahan its. Biliary system is non dilated. Pancreas enhances normally. No adrenal nodules. Kidneys demon strate normal size and enhancement, without hydronephrosis. Peritoneum and bowel: Bowel loops demonstrate normal wall thickness and caliber. No free fluid or a ir. Nodes and vessels: No retroperitoneal or mesenteric adenopathy by size criteria. Aorta and inferior vena cava are normal in size. Mild to moderate atherosclerotic calcifications in the abdominal aorta is seen. Miscellaneous: No ventral hernias. PELVIS: Genitourinary: Bladder wall thickness is normal. Miscellaneous: No inguinal hernias or adenopathy. Bones: There is prior left total hip arthroplasty. Degenerative disc disease throughout lumbar spine and lower thoracic spine is seen. S-shaped scoliosis of thoracolumbar spine is also noted. No suspici ous bony lesions. No vertebral body compression fractures. IMPRESSION: 1. No acute inflammatory process is seen in abdomen or pelvis. No free fluid of free air. 2. Scoliosis of thoracolumbar spine as above. Degenerative disc disease throughout lumbar spine. No a cute vertebral body compression fracture. 3. Bibasilar patchy infiltrate/atelectasis. Please correlate with CT of chest findings. Reviewed by: Jamie Jones MD on 12/27/2022 1:58 PM PDT Approved by: Jamie Jones MD on 12/27/2022 1:58 PM PDT Station ID: [id number]
[2022-12-27] MEDS ORDERED: cefTRIAXone 1 GM in SODIUM CHLORIDE 0.9% MINIBAG 100 ML IV STA (14:10)
[2022-12-27] MEDS ORDERED: AZITHROMYCIN INJ 500 MG in SODIUM CHLORIDE 0.9% 250 ML IV STA (14:10)
[2022-12-27] MEDS ORDERED: cefTRIAXone 1 GM VIAL ONE (14:22)
[2022-12-27] MEDS ORDERED: SODIUM CHLORIDE FLUSH 0.9% 10 ML SYRINGE IVP PRN (14:54)
[2022-12-27] MEDS ORDERED: oxyCODONE 5 MG TABLET PO PRN (14:54)
[2022-12-27] MEDS ORDERED: ACETAMINOPHEN 325 MG TABLET PO PRN (14:54)
[2022-12-27] MEDS ORDERED: ONDANSETRON ODT 4 MG TABLET TL PRN (14:54)
[2022-12-27] MEDS ORDERED: ONDANSETRON 4 MG/2 ML VIAL IVP PRN (14:54)
[2022-12-27] MEDS ORDERED: SODIUM CHLORIDE 0.9% 1,000 ML IV SCH (15:00)
--- NOTE | 2022-12-27 15:01 | HISTORY & PHYSICAL EXAMINATION ---
Chief Complaint - Chief Complaint Chief Complaint: low BP and low 02 sat History of Present Illness - Admitted From Admitted From:: home - History Obtained From Records Reviewed: [employer] History obtained from: Dr. Horowitz Exam Limitations: none - History of Present Illness HPI Comment/Other: She was brought in by EMS because her was afraid she was having a stroke. He checks her blood pressure and oxygen saturations on a daily basis. He also measures the circumference of her ankles and calves on a daily basis. Her blood pressure and oxygen levels were low at home and her son felt like the left side of her face had a droop to it. Vitals done in the emergency room showed a temperature of 36.9, heart rate of 70, initial blood pressure of 73/43, respirations 26 and 83% saturation on room air. This is a patient who is not on oxygen at home. She is a very quiet lady. Spends most of her time to sedentary, reading books. When I asked her if she felt ill with any of these points in her history, she smiles and shakes her head no. She states that she felt "perfectly fine". It was her and her son the felt that something was wrong with her. When I asked her how she feels now that she has been resuscitated with IV antibiotics and fluids, she smiles again and says "no different than I started out with". When the emergency room provider saw her, she was somnolent, and shared that all of the symptoms started the night before. She was very very tired, but did not have any fever, chills, shortness of breath, cough, abdominal pain. She was admitted to the hospital June 2020 with obtundation, hypotension, and only responsive to sternal rub. With that admission she had quite positive stool and had profoundly low hemoglobin and hematocrit of 4.2 and 14.6. She was felt to be in hemorrhagic shock with lactic acidosis and having benzodiazepine toxicity. Endoscopy showed multiple erosions in the first part of duodenum, second part of the duodenum and duodenal bulb. She also had multiple ulcers in the duodenal bulb and first part of the duodenum. She required an IJ and an ICU stay. She developed ischemic hepatitis with elevated liver enzymes. When she was dis charged, she was asked not to take any nonsteroidals and stay on Protonix. She was instructed to follow-up with another endoscopy. The only other time that she presented with obtundation and altered mental status had to do with a heart attack. She became altered, unresponsive, and dropped her blood pressure still low she almost . Her has a very heightened sense of awareness because of these things. So when she seemed different, had a left facial droop, and had low blood pressure today he wanted her evaluated immediately. She did have some diarrhea around November 12 of this year and was seen in the emergency room because it was associated with high blood pressure. She was sent home from the emergency room.She describes a sedentary person. She is ambulatory, but is not very active. Morbidly obese. This illness is a sudden change in her usual baseline status. She does get up twice a week to go to physical therapy. She gets up in her house to use her walker to go to the bathroom, to go to the table to eat dinner. But to be honest she spends most of her time in bed. Her back hurts, and her left leg hurts. She really has not walked very much for about 12 or 14 years. But when her left leg started going numb 2 years ago she just really stopped walking very much. She prefers to eat in bed semirecumbent. She developed a raspy cough 2 weeks ago. But no fever or chills. No hemoptysis. No sore throat. No dysphagia. No dysarthria. The emergency room provider evaluated her for possible OR. Troponin was 6.4. And 6.2. EKG was without acute diagnostic changes. Lactic acid was elevated at 2.6, and he began an infectious work-up. Chest x-ray had mild congestion and mild pulmonary edema. Was not able to see if there is any infiltrates. Head CT was without acute intracranial changes. She has postsurgical changes in the bilateral temporal lobes. Chest/thorax CT angiogram for PE did not have pulmonary embolism but she had multi lobar pneumonia in the posterior medial aspect of the bilateral lower lobes, posterior aspect of the left upper lobe, and dependent atelectasis in the left upper lobe and middle lobe. Her heart size was enlarged without pericardial effusion. She had mildly prominent mediastinal lymph nodes. Abdomen pelvis CT was also done and looking for infection and there were no acute inflammatory processes seen in the abdomen or pelvis. No free fluid or free air. As such she was treated as sepsis with shock due to multilobar pneumonia. She does not have atrial fibrillation. When she was given IV antibiotics, blood pressure slowly come back. Her next blood pressure was 104/55. And when the emergency room provider was signing her out to me, blood pressure was now 120/100. She was waking up. And feeling better. We discussed the case with regards to disposition of the patient with sepsis with shock. She is already starting to respond to simple IV fluids and antibiotics. She is now more awake. And as such I do not think I am going to put her in the ICU and will be putting her on MedSurg with telemetry. History - Past Medical History Cardiovascular: reports: Congestive heart failure (EF 35-40% w STEMI and normalized p stent 10/2020. Lasix, K, Coreg, losartan. Off spironolactone due to acute CKD), Hypertension, High cholesterol, Coronary artery disease (followed by Silvia Medeiros @ [facility]), Peripheral Vascular Disease, OR (1986 and 2018, s/p stent) Respiratory: reports: None Neuro: reports: Head injury (TBI 1974), Headaches, Tremors (Present all her life), Other (Restless leg) Endocrine/Autoimmune: reports: Other (obesity) GI: reports: GERD (w esophageal spasm), GI bleed, Ulcers (multiple 06/2020 EGD, hx of PUD 1997), Hepatitis (A as a child), Other (IBS) SHOW HOST: reports: Breast cancer (s/0 XRT 2011) : reports: Renal insuffiency (with acute on chronic KD) HEENT: reports: Chronic vision loss, Other (TMJ) Psych: reports: Depression, Anxiety, Post traumatic stress disorder (from TMJ surgery 02/02), Other (chronic insomnia) Musculoskeletal: reports: Osteoarthritis, Fibromyalgia, Chronic back pain (w lumbar radiculopathy) Derm: reports: Other (recurrent devon intertrigo) MRSA Hx?: Yes - Past Surgical History General: reports: Other (Colostomy) Ortho: reports: Hip replacement (09/20/21 w postop infection, in hosp for abx + I&D 11/2021), Knee replacement (bilateral ) /SHOW HOST: reports: section, Other Cardiovascular: reports: Coronary stent HEENT: reports: Other - Family & Social History Family History Comment/Other: Mom is . Had cancer and parkinsonism. Never knew her dad. 3 half siblings are healthy. 2 children are healthy Living arrangement: At home Living Situation: With spouse/s.o. Social History Notes: Never smoked. Rare alcohol drinker. to her second . 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 Retired in the . She is part [place]. Family is from [facility] before they moved to the [facility]. [place] . She and her live in their own home. - POLST Patient has POLST: No POLST Status: Full Code (She wants all resuscitative measures, and any procedures that we deem necessary to keep her alive. She may consider not getting an amputation if she gets gangrene) Meds/Allgy - Home Medications Home Medications: Ambulatory Orders Medication Instructions Recorded Confirmed Temazepam 30 mg PO HS 01/19/14 09/14/20 Atorvastatin Calcium 80 mg PO DAILY PM 06/27/20 09/14/20 Carvedilol 12.5 mg PO BID 06/27/20 09/14/20 Furosemide 40 mg PO DAILY 06/27/20 09/14/20 Losartan Potassium 25 mg PO DAILY 06/27/20 09/14/20 Potassium Chloride 20 meq PO BID 06/27/20 09/14/20 Pregabalin [Lyrica] 150 mg PO DAILY 06/27/20 09/14/20 Topiramate 50 mg PO BID 06/27/20 09/14/20 Pregabalin [Lyrica] 300 mg PO QPM 06/28/20 09/14/20 Pantoprazole [Protonix] 40 mg PO BID #60 tablet 07/02/20 09/14/20 Aspirin [Aspirin EC] 81 mg PO DAILY 09/14/20 09/14/20 tiZANidine [Zanaflex] 4 mg PO DAILY 09/14/20 09/14/20 Ondansetron Odt [Zofran] 4 mg TL Q6H PRN #10 tablet 11/15/22 - Allergies Allergies/Adverse Reactions: Allergies Allergy/AdvReac Type Severity Reaction Status Date / Time pentazocine [From Talwin] AdvReac Emesis Verified 12/27/22 11:22 propoxyphene [From Darvon] AdvReac Emesis Verified 12/27/22 11:22 Review of Systems - Constitutional Constitutional: reports: Other (As far she is concerned, she did not feel badly to begin with.). denies: Fatigue, Fever, Chills, Malaise, Poor appetite, Diaphoresis - Eyes Eyes: reports: Corrective lenses. denies: Pain, Irritation, Amaurosis, Blurred vision, Vision loss - Ears, Nose & Throat Ears, Nose & Throat: reports: Postnasal drainage (For 2 weeks). denies: Ear pain, Hearing loss, Hearing aids, Tinnitus - Cardiovascular Cariovascular: reports: Edema (With her first heart attack. Had to take diuretics for a long time. Ankles are now skinny.), Decr. exercise tolerance (Due to pain, flatfeet, left leg being numb). denies: Irregular heart rate, Palpitations, Chest pain, Exertional dyspnea - Respiratory Respiratory: reports: Cough (Raspy, back of her throat, for the last 2 weeks.), Wheezing (The last couple of days. She can clear her wheezing if she takes deep breaths and coughs.). denies: Sputum production, Hemoptysis, Orthopnea, SOB at rest, SOB with exertion - Gastrointestinal Gastrointestinal: denies: Abdominal pain, Abdominal distention, Constipation, Diarrhea, Change in bowel habits - Genitourinary Genitourinary: denies: Dysuria, Frequency, Urgency - Musculoskeletal Musculoskeletal: reports: Back pain, Joint pain, Other (These are the 2 main reasons she spends most of her time in bed. Back hurts and left hip hurts). denies: Muscle pain - Integumentary Integumentary: denies: Rash, Pruritis, Lesions, Dryness - Neurological Neurological: reports: Other (Chronic resting tremor for years). denies: General weakness, Focal weakness, Memory problems, Pre-existing deficit, Abnormal gait - Psychiatric Psychiatric: reports: Depression, Anxiety. denies: Suicidal - Endocrine Endocrine: denies: Polyuria, Polydypsia, Polyphagia - Hematologic/Lymphatic Hematologic/Lymphatic: denies: Anemia, Bruising, Petechiae Prior Level of Functionality: She is very sedentary. She prefers to lay in bed and read. She reads a book a day. She does get up out of bed and using a walker will get her self to the bathroom, a dining room. Twice a week she gets to a car so that she could be driven to physical therapy. Every other month she will get to her car to go out to eat in public with her children.Uses a walker. Exam - Vital Signs Reviewed Vital Signs: Yes Vital Signs: Vital Signs x48h Temp Pulse Resp BP Pulse Ox O2 Flow Rate 12/27/22 13:26 65 16 98/44 L 96 2 12/27/22 11:30 63 16 104/55 L 96 3 12/27/22 11:16 36.9 C 70 26 H 73/43 L 83 L - Physical Exam General Appearance: positive: Alert (5 foot 7, 123 kg, morbidly obese,), Other (Looks stated age, comfortable. Almost silent. She lets her do most of the talking. Both agree that she is not demented. It is just a pattern in the relationship where he talks and she just lets him) Eyes Bilateral: positive: PERRL, EOMI ENT: positive: No signs of dehydration Neck: positive: No JVD. negative: Stiff neck Respiratory: positive: No respiratory distress, Wheezes (Right upper lobe, right midlung). negative: Rales, Rhonchi Cardiovascular: positive: Regular rate & rhythm, Systolic murmur Peripheral Pulses: positive: 1+ Abdomen: positive: Non-tender, No organomegaly, Nml bowel sounds, No distention Skin: positive: Warm, Dry, Other (No venous stasis, no hemosiderin deposits). negative: Skin rash Extremities: positive: Full ROM, No pedal edema, Other (Feet are extremely flat.) Neurologic/Psychiatric: positive: Oriented x3, CN's nml (2-12). negative: Motor nml (Left leg difficult to move. Has scoliosis and lumbar radiculopathy. body tremor from head to arms, to hands present. She clasps her hands together on top of belly to hold them still.) Conclusion/Plan - Problem List (1) Sepsis associated hypotension Conclusion/Plan: Source is lungs. Multifocal pneumonia. She has no antecedent history of fever, chills, sore throat. She has had a raspy cough for 2 weeks but nothing that was severe. No shortness of breath. No hemoptysis. She may have reflux with aspiration. says that they have been dealing with "her esophagus problems" for weeks now. She has no history of atrial fibrillation, IV drug abuse that would indicate she has multiple septic emboli to the lungs. She prefers to eat in bed, and is usually at 45 degrees when she does it. Plan: Inpatient status Empiric antibiotics for lung infection (2) Multifocal pneumonia Conclusion/Plan: That may be due to aspiration that is silent. Can be either from reflux, or her habit of eating laying semirecumbent. She does not give a dramatic history of an infectious process that laid her low and then now comes in with sepsis. Plan: Empiric antibiotics with azithromycin 500 mg daily IV for 3 doses total. Rocephin 1 g daily for 5 doses. Adjust antibiotics on the basis of cultures or sensitivities that will come through (3) Hypoxia Conclusion/Plan: This is new for her. She is usually not on oxygen at home. checks her blood pressure and O2 sat on a daily basis. At this time we will supplement her with nasal cannula to maintain O2 sats greater than 92%. She does want to be resuscitated. So as such she will be intubated if she goes into severe acute respiratory failure. (4) Sedentary lifestyle Conclusion/Plan: Continue with physical therapy while here. She usually goes twice a week when she is at home. She raises her eyebrow when I tell her that I expect her to get up out of bed and sit up and eat breakfast or her meals in a chair. Her laughs. (5) Acute renal insufficiency Conclusion/Plan: Baseline creatinine appears to be 0.7-0.9. Creatinine is currently 1.5. She appears to have acute renal insufficiency. Most likely due to decreased p.o. intake, the patient has pneumonia. Plan: Check creatinine daily Adjustment medications for renal dosing if necessary Avoid nephrotoxic (6) History of congestive heart failure Conclusion/Plan: Left ventricular ejection fraction temporarily came down after an OR and a stent. Follow-up echo showed improvement in ejection fraction to normal. Nevertheless, cardiology still has her on Coreg, Lasix, losartan and beta- saturnino. Those will be resumed once blood pressure has stabilized. Even though she has improved with treatment from the ER, blood pressure still at times 104, or 99 systolic (7) Coronary artery disease Conclusion/Plan: Atorvastatin and aspirin will be resumed. At this time I am holding off on her Coreg and SREE inhibitor due to her blood pressure. Qualifiers: Coronary Disease-Associated Artery/Lesion type: eyak artery (8) History of duodenal ulcer Conclusion/Plan: She is not supposed to be on nonsteroidal therapy. She was on Plavix for history of OR and a stent in the past. Aspirin was resumed by cardiology since the ulcer. She is currently on Protonix. I will resume her Protonix. - Lab Results Lab results reviewed: Yes Jairo Bones: 12/27/22 11:38 12/27/22 11:38 Core Measures - Anticipated LOS I expect patient to be DC'd or transferred within 96 hours.: Yes - DVT/VTE - Prophylaxis VTE/DVT Prophylaxis med ordered at admit?: Yes
[2022-12-27] MEDS: SODIUM CHLORIDE 0.9% 1,000 ML IV SCH ×2 (16:21→19:50)
[2022-12-27] MEDS ORDERED: iohexoL-300 100 ML VIAL IVP ONE (17:16)
[2022-12-27] MEDS: SODIUM CHLORIDE FLUSH 0.9% 10 ML SYRINGE IVP SCH ×2 (17:34→23:35)
[2022-12-27] MEDS ORDERED: TEMAZEPAM 15 MG CAPSULE PO PRN (20:54)
[2022-12-27] MEDS ORDERED: ALBUTEROL NEB 2.5 MG/3 ML INH PRN (20:58)
[2022-12-27] MEDS: ATORVASTATIN 40 MG TABLET PO SCH (21:53)
[2022-12-27] MEDS: PREGABALIN 100 MG CAPSULE PO SCH (21:53)
[2022-12-28] MEDS: PANTOPRAZOLE 40 MG TABLET PO SCH (06:13)
[2022-12-28 06:23] LABS: BASOPHILS # (AUTO) 0.1 10^3/uL (0.0-0.1); BASOPHILS % (AUTO) 0.5 %; EOSINOPHILS # (AUTO) 0.5 10^3/uL (0.0-0.7); EOSINOPHILS % (AUTO) 5.2 %; HCT - HEMATOCRIT 41.7 % (37.0-47.0); HGB - HEMOGLOBIN 13.5 g/dL (12.0-16.0); LYMPHOCYTES # (AUTO) 0.9 10^3/uL (1.5-3.5); LYMPHOCYTES % (AUTO) 9.7 %; MEAN CORPUSCULAR HEMOGLOBIN 33.4 pg (27.0-31.0); MEAN CORPUSCULAR HGB CONC 32.4 g/dL (32.0-36.0); MEAN CORPUSCULAR VOLUME 103.2 fL (81.0-99.0); MEAN PLATELET VOLUME 9.9 fL (7.9-10.8); MONOCYTES # (AUTO) 0.9 10^3/uL (0.0-1.0); MONOCYTES % (AUTO) 9.1 %; NEUTROPHILS # (AUTO) 7.3 10^3/uL (1.5-6.6); NEUTROPHILS % (AUTO) 75.2 %; PLT - PLATELET COUNT 195 10^3/uL (130-450); RED BLOOD COUNT 4.04 10^6/uL (4.20-5.40); RED CELL DISTRIBUTION WIDTH 13.3 % (12.0-15.0); WHITE BLOOD COUNT 9.7 x10^3/uL (4.8-10.8)
[2022-12-28 06:31] LABS: CALCIUM 8.2 mg/dL (8.5-10.3); CREATININE 0.9 mg/dL (0.4-1.0); POTASSIUM 3.7 mmol/L (3.5-5.0)
[2022-12-28] MEDS: ASPIRIN EC 81 MG TABLET PO SCH (09:39)
[2022-12-28] MEDS: cefTRIAXone 1 GM in SODIUM CHLORIDE 0.9% MINIBAG 100 ML IV SCH (09:40)
[2022-12-28] MEDS: SODIUM CHLORIDE FLUSH 0.9% 10 ML SYRINGE IVP SCH ×3 (09:41→23:51)
[2022-12-28] MEDS: ENOXAPARIN 40 MG/0.4 ML SYRINGE SUBQ SCH (09:45)
[2022-12-28] MEDS: AZITHROMYCIN INJ 500 MG in SODIUM CHLORIDE 0.9% 250 ML IV SCH (10:18)
--- NOTE | 2022-12-28 11:28 | PHARMACY PROGRESS NOTE ---
- Best Possible Medication History Admit Date and Time: 12/27/22 1454 Processed by: Pharmacy Medication History completed: Yes Patient Interview: Completed Secondary Source(s): Physician records, Pharmacy records, Insurance records As the person ultimately responsible for medication therapy, providers are able to order a medication from an existing home medication list in [facility] via the "Reconcile Routine" prior to Confirmation of that medication by business support associate. Such practice is discouraged except when the physician, in their clinical judgment, deems that a medical need exists for a medication without regard to previous use.
--- NOTE | 2022-12-28 15:14 | PROVIDER PROGRESS NOTE ---
Subjective - Prog Note Date Prog Note Date: 12/28/22 Prog Note Time: 15:12 - Subjective Pt reports feeling: Improved Subjective: She shrugs her shoulders. States out for a while if she thinks about it. But tells me that she does not really feel any better or worse than she did last night. She always feels a little tired, always with chronic aches and pains. Today she is no better than yesterday and she does not feel yesterday was much worse than the day before. She really does not seem to have self-awareness of the hypotension, the severity of her illness yesterday. Her main request for me today are to renew her alprazolam, tizanidine, and temazepam at night. She denies cough, chest pain, shortness of breath. No abdominal pain. Appetite is the same as always. is at the bedside. Current Medications - Current Medications Current Medications: Active Medications Acetaminophen (Acetaminophen 325 Mg Tablet) 650 mg PO Q4HR PRN PRN Reason: Pain 1 to 4, or Fever Albuterol (Albuterol Neb 2.5 Mg/3 Ml) 2.5 mg INH RTQ4H PRN PRN Reason: Wheezing Aspirin (Aspirin Ec 81 Mg Tablet) 81 mg PO DAILY [facility] Last Admin: 12/28/22 09:39 Dose: 81 mg Atorvastatin Calcium (Atorvastatin 40 Mg Tablet) 40 mg PO QPM [facility] Last Admin: 12/27/22 21:53 Dose: 40 mg Enoxaparin Sodium (Enoxaparin 40 Mg/0.4 Ml Syringe) 40 mg SUBQ DAILY [facility] Last Admin: 12/28/22 09:45 Dose: 40 mg Ceftriaxone Sodium 1 gm/ (Sodium Chloride) 100 mls @ 200 mls/hr IV DAILY [facility] Stop: 01/01/23 09:29 Last Infusion: 12/28/22 10:15 Dose: Infused Azithromycin 500 mg/ Sodium (Chloride) 250 mls @ 250 mls/hr IV DAILY [facility] Stop: 12/30/22 09:59 Last Admin: 12/28/22 10:18 Dose: 250 mls/hr Ondansetron HCl (Ondansetron Odt 4 Mg Tablet) 4 mg TL Q6HR PRN PRN Reason: Nausea / Vomiting Ondansetron HCl (Ondansetron 4 Mg/2 Ml Vial) 4 mg IVP Q6HR PRN PRN Reason: Nausea / Vomiting Oxycodone HCl (Oxycodone 5 Mg Tablet) 5 mg PO Q4HR PRN PRN Reason: Pain 5 to 7 Pantoprazole Sodium (Pantoprazole 40 Mg Tablet) 40 mg PO QDAC [facility] Last Admin: 12/28/22 06:13 Dose: 40 mg Pregabalin (Pregabalin 100 Mg Capsule) 300 mg PO QPM [facility] Last Admin: 12/27/22 21:53 Dose: 300 mg Sodium Chloride (Sodium Chloride Flush 0.9% 10 Ml Syringe) 10 ml IVP PRN PRN PRN Reason: NEEDED PER PROVIDER ORDERS Sodium Chloride (Sodium Chloride Flush 0.9% 10 Ml Syringe) 10 ml IVP 0100,0900,1700 [facility] Last Admin: 12/28/22 09:41 Dose: 10 ml Temazepam (Temazepam 15 Mg Capsule) 30 mg PO QPM PRN PRN Reason: Insomnia Last Admin: 12/27/22 23:57 Dose: 30 mg Temazepam 30 mg PO HS 01/19/14 Atorvastatin Calcium 80 mg PO QPM 06/27/20 Carvedilol 12.5 mg PO BID 06/27/20 Furosemide 40 mg PO DAILY 06/27/20 Losartan Potassium 25 mg PO DAILY 06/27/20 Potassium Chloride 20 meq PO BID 06/27/20 Pregabalin [Lyrica] 150 mg PO DAILY 06/27/20 Topiramate 50 mg PO BID 06/27/20 Pregabalin [Lyrica] 300 mg PO QPM 06/28/20 Aspirin [Aspirin EC] 81 mg PO DAILY 09/14/20 tiZANidine [Zanaflex] 8 mg PO QPM 09/14/20 Alprazolam [Xanax] 1 mg PO QPM 12/28/22 Calcium Carbonate [Calcium] 600 mg PO BID 12/28/22 Cholecalciferol (Vitamin D3) [Vitamin D3 Max] 125 mcg PO DAILY 12/28/22 tiZANidine [Zanaflex] 4 mg PO DAILY PRN 12/28/22 Objective - Vital Signs/Intake & Output Reviewed Vital Signs: Yes Vital Signs: Vital Signs x48h Temp Pulse Resp BP BP Pulse Ox Pulse Ox 12/28/22 10:42 170/90 H 93 12/28/22 09:02 97 20 93 12/28/22 09:01 97 20 96 12/28/22 09:00 105 H 20 87 L 12/28/22 08:00 37.0 C 97 20 168/78 H 94 12/28/22 07:27 O2 Flow Rate 12/28/22 10:42 12/28/22 09:02 1 12/28/22 09:01 2 12/28/22 09:00 12/28/22 08:00 2 12/28/22 07:27 2 Intake & Output: Intake & Output 12/25/22 12/26/22 12/27/22 12/28/22 23:59 23:59 23:59 23:59 Intake Total 2940.833 840 Balance 2940.833 840 - Objective General Appearance: positive: No acute distress, Alert, Other (5 foot 7 inch elderly female, morbidly obese at 123 kg, sitting up in a chair, reading a book, comfortable. Wearing her glasses) Eyes Bilateral: positive: PERRL, EOMI ENT: positive: No signs of dehydration Neck: negative: Lymphadenopathy (R), Lymphadenopathy (L), Stiff neck Respiratory: positive: No respiratory distress. negative: Wheezes, Rales, Rhonchi Cardiovascular: positive: Regular rate & rhythm Abdomen: positive: Non-tender, Nml bowel sounds, No distention Skin: positive: Warm, Dry Extremities: positive: Full ROM, Pedal edema (Trace, minimal around ankles), Other (Very flat feet.) Neurologic/Psychiatric: positive: Oriented x3, CN's nml (2-12), Motor nml, Other (Exceedingly quiet person. Asking a question will result in a full 1 to 1-1/2-minute wait as she processes your question silently, and then slowly answers.) - Lab Results Fish Bones: 12/28/22 06:15 12/28/22 06:15 Other Labs: Lab Results x24hrs 12/28/22 12/28/22 12/28/22 Range/Units 06:15 06:15 06:15 WBC 9.7 (4.8-10.8) x10^3/uL RBC 4.04 L (4.20-5.40) 10^6/uL Hgb 13.5 (12.0-16.0) g/dL Hct 41.7 (37.0-47.0) % MCV 103.2 H (81.0-99.0) fL MCH 33.4 H (27.0-31.0) pg MCHC 32.4 (32.0-36.0) g/dL RDW 13.3 (12.0-15.0) % Plt Count 195 (130-450) 10^3/uL MPV 9.9 (7.9-10.8) fL Neut # (Auto) 7.3 H (1.5-6.6) 10^3/uL Lymph # (Auto) 0.9 L (1.5-3.5) 10^3/uL Power # (Auto) 0.9 (0.0-1.0) 10^3/uL Eos # (Auto) 0.5 (0.0-0.7) 10^3/uL Baso # (Auto) 0.1 (0.0-0.1) 10^3/uL Absolute Nucleated RBC 0.00 x10^3/uL Nucleated RBC % 0.0 /100WBC Sodium 145 (135-145) mmol/L Potassium 3.7 (3.5-5.0) mmol/L Chloride 110 (101-111) mmol/L Carbon Dioxide 28 (21-32) mmol/L Anion Gap 7.0 (6-13) BUN 13 (6-20) mg/dL Creatinine 0.9 (0.4-1.0) mg/dL Estimated GFR (MDRD) 62 L (>89) Glucose 171 H (70-100) mg/dL Lactic Acid 1.1 (0.5-2.2) mmol/L Calcium 8.2 L (8.5-10.3) mg/dL ABX Reporting Has patient been on IV antibiotics over the past 48 hours?: Yes Assessment/Plan - Problem List (1) Sepsis associated hypotension Impression: Sepsis criteria have resolved. BP nml now. Was at 3 liters NC to oxygenate and is down to 1 liter today. Blood cultures are negative. Source of sepsis is lungs. Multifocal pneumonia. She has no antecedent history of fever, chills, sore throat. She has had a raspy cough for 2 weeks but nothing that was severe. No shortness of breath. No hemoptysis. She may have reflux with aspiration. says that they have been dealing with "her esophagus problems" for weeks now. She has no history of atrial fibrillation, IV drug abuse that would indicate she has multiple septic emboli to the lungs. She prefers to eat in bed, and is usually at 45 degrees when she does it. Plan: Continue antibiotics. Today is day #2 of Rocephin, and azithromycin. She will receive 3 days of azithromycin. 5 days of Rocephin. (2) Multifocal pneumonia Conclusion/Plan: That may be due to aspiration that is silent. Can be either from reflux, or her habit of eating laying semirecumbent. She does not give a dramatic history of an infectious process that laid her low and then now comes in with sepsis. Emerson savage does mention that her physical therapist came down with RSV. Patient saw the therapist 2 days later. She asked if she could have RSV. Plan: Empiric antibiotics with azithromycin 500 mg daily IV for 3 doses total. Rocephin 1 g daily for 5 doses. Since blood cultures are negative, the patient will be kept on empiric therapy. I reassured her and her that her clinical presentation and her chest x- ray do not indicate viral pneumonia. (3) Hypoxia Conclusion/Plan: She has improved and needs less 02. This is new for her. She is usually not on oxygen at home. checks her blood pressure and O2 sat on a daily basis. At this time we will supplement her with nasal cannula to maintain O2 sats greater than 92%. She does want to be resuscitated. So as such she will be intubated if she goes into severe acute respiratory failure. (4) Sedentary lifestyle Conclusion/Plan: Continue with physical therapy while here. She usually goes twice a week when she is at home. On the evening of admission, she raised her eyebrow when I tell her that I expect her to get up out of bed and sit up and eat breakfast or her meals in a chair. Her laughs. (5) Acute renal insufficiency resolved. Conclusion/Plan: Baseline creatinine appears to be 0.7-0.9. On admission she was 1.5>>0.9 today after 2 liters of IVF. She appeared to have acute renal insufficiency. Most likely due to decreased p.o. intake, and that the patient has pneumonia. Now that she is adequately hydrated, eating, creatinine is now normal. Plan: Stop IVF Adjustment medications for renal dosing if necessary Avoid nephrotoxic (6) History of congestive heart failure Conclusion/Plan: Left ventricular ejection fraction temporarily came down after an AK and a stent. Follow-up echo showed improvement in ejection fraction to normal. Nevertheless, cardiology still has her on Coreg, Lasix, losartan and beta- saturnino. She was hypotensive in the emergency room. She is now hypertensive. Those will be resumed Now that her blood pressure has normalized and even become hypertensive. (7) Coronary artery disease Conclusion/Plan: Atorvastatin and aspirin will be resumed. At this time I am holding off on her Coreg and SREE inhibitor due to her blood pressure. Qualifiers: Coronary Disease-Associated Artery/Lesion type: [place] artery (8) History of duodenal ulcer Conclusion/Plan: She is not supposed to be on nonsteroidal therapy. She was on Plavix for history of AK and a stent in the past. Aspirin was resumed by cardiology since the ulcer. She is currently on Protonix. I will resume her Protonix. (9) Fibromyalgia She would like her tizanidine, temazepam, and lorazepam all resumed tonight. She likes them as a single dose at the same time.
[2022-12-28] MEDS ORDERED: tiZANidine 4 MG TABLET PO PRN (15:29)
[2022-12-28] MEDS: ATORVASTATIN 40 MG TABLET PO SCH (20:34)
[2022-12-28] MEDS: CALCIUM CARB (OYSTER SHELL) 500 MG TABLET PO SCH (20:34)
[2022-12-28] MEDS: ALPRAZolam 0.25 MG TABLET PO SCH ×2 (20:34→22:41)
[2022-12-28] MEDS: carvediloL 12.5 MG TABLET PO SCH (20:35)
[2022-12-28] MEDS: POTASSIUM CHLORIDE 20 MEQ TABLET PO SCH (20:35)
[2022-12-28] MEDS: PREGABALIN 100 MG CAPSULE PO SCH ×2 (20:35→22:41)
[2022-12-28] MEDS: TOPIRAMATE 25 MG TABLET PO SCH (20:36)
[2022-12-28] MEDS ORDERED: tiZANidine 4 MG TABLET PO SCH (21:00)
[2022-12-29 05:45] LABS: BASOPHILS % (AUTO) 0.7 %; EOSINOPHILS # (AUTO) 0.3 10^3/uL (0.0-0.7); EOSINOPHILS % (AUTO) 5.7 %; HCT - HEMATOCRIT 39.5 % (37.0-47.0); LYMPHOCYTES # (AUTO) 1.2 10^3/uL (1.5-3.5); LYMPHOCYTES % (AUTO) 22.3 %; MEAN CORPUSCULAR HEMOGLOBIN 33.1 pg (27.0-31.0); MEAN CORPUSCULAR HGB CONC 32.9 g/dL (32.0-36.0); MEAN CORPUSCULAR VOLUME 100.5 fL (81.0-99.0); MEAN PLATELET VOLUME 9.7 fL (7.9-10.8); MONOCYTES # (AUTO) 0.7 10^3/uL (0.0-1.0); NEUTROPHILS # (AUTO) 3.2 10^3/uL (1.5-6.6); NEUTROPHILS % (AUTO) 58.9 %; PLT - PLATELET COUNT 180 10^3/uL (130-450); RED BLOOD COUNT 3.93 10^6/uL (4.20-5.40); RED CELL DISTRIBUTION WIDTH 13.3 % (12.0-15.0); WHITE BLOOD COUNT 5.4 x10^3/uL (4.8-10.8)
[2022-12-29 05:51] LABS: CREATININE 0.7 mg/dL (0.4-1.0); POTASSIUM 3.2 mmol/L (3.5-5.0)
[2022-12-29] MEDS: PANTOPRAZOLE 40 MG TABLET PO SCH (06:33)
[2022-12-29 08:45] VITALS: BP 164/77
[2022-12-29] MEDS ORDERED: ASPIRIN EC 81 MG TABLET PO SCH (09:00)
[2022-12-29] MEDS ORDERED: LOSARTAN 50 MG TABLET PO SCH (09:00)
[2022-12-29] MEDS ORDERED: PREGABALIN 100 MG CAPSULE PO SCH (09:00)
[2022-12-29] MEDS ORDERED: FUROSEMIDE 40 MG TABLET PO SCH (09:00)
[2022-12-29] MEDS ORDERED: PREGABALIN 25 MG CAPSULE PO SCH (09:00)
[2022-12-29] MEDS ORDERED: CHOLECALCIFEROL 5,000 UNIT CAPSULE PO SCH (09:00)
--- NOTE | 2022-12-29 09:18 | Discharge Plan ---
Discharge Plan Problem Reviewed?: Yes Disposition: Home, Self Care Condition: Fair Prescriptions: Amox/Clav 500/125 [Augmentin 500/125] 1 tablet PO Q12H #10 tablet Diet: Regular Activity Restrictions: Activity as Tolerated Shower Restrictions: No Driving Restrictions: Yes (no driving) Assistance Devices: [facility] Concerns: You are a 72-year-old female who is 123 kg, and lead a very sedentary life due to to back pain, left leg weakness. Scoliosis. You rarely get out of bed and eat in a semirecumbent position. Your carefully checks her blood pressure, oxygenation, and girth of your legs on a daily basis. Your son noticed that you had a left facial droop, and your took your vital signs and found to have a low blood pressure. You came to the emergency room and we found you to have multifocal pneumonia. That is a fancy way of saying that you have pneumonia in multiple places in both sides of your lungs. This is an unusual distribution for pneumonia. You responded very nicely to antibiotics but we think that your pneumonia may be from aspirating from eating in a semirecumbent position. Over the next 2 days you have done very well. Your vital signs are normal, oxygenation is normal, and you feel like you are at your baseline Plan of Treatment: 1. Please see your primary care provider in the next 1 to 2 weeks for follow- up. 2. Please eat sitting upright. 3. You will finish your antibiotic treatment with 5 more days of Augmentin. Any antibiotic can give you diarrhea. So we are also asking that you take a probiotic with your antibiotic twice a day for the next 5 days as well. Care Goals: To complete therapy for pneumonia. Hopefully reduce your risk of having recurrent pneumonia. Assessment: Patient is alert, oriented. is her primary caregiver. He was at the bedside as we discussed discharge instructions Follow-Up Care: Outpatient Rehab - PT, Outpatient Rehab - OT No Smoking: If you smoke, Please STOP! Call for help. Follow-up with: Alexia Abdi PA-C [Primary Care Provider] -
[2022-12-29] MEDS: ASPIRIN EC 81 MG TABLET PO SCH (09:28)
[2022-12-29] MEDS: TOPIRAMATE 25 MG TABLET PO SCH (09:31)
[2022-12-29] MEDS: CALCIUM CARB (OYSTER SHELL) 500 MG TABLET PO SCH (09:31)
[2022-12-29] MEDS: POTASSIUM CHLORIDE 20 MEQ TABLET PO SCH (09:32)
[2022-12-29] MEDS: carvediloL 12.5 MG TABLET PO SCH (09:32)
[2022-12-29] MEDS: cefTRIAXone 1 GM in SODIUM CHLORIDE 0.9% MINIBAG 100 ML IV SCH (09:32)
[2022-12-29] MEDS: ENOXAPARIN 40 MG/0.4 ML SYRINGE SUBQ SCH (09:33)
[2022-12-29] MEDS: SODIUM CHLORIDE FLUSH 0.9% 10 ML SYRINGE IVP SCH (09:33)
[2022-12-29] MEDS: AZITHROMYCIN INJ 500 MG in SODIUM CHLORIDE 0.9% 250 ML IV SCH (10:00)
--- NOTE | 2022-12-29 13:36 | DISCHARGE SUMMARY ---
"Discharge Summary Admit Date: 12/27/22 Discharge Date: 12/29/22 Discharging Provider: Nisa Echeverria MD Primary Care Provider: ASHLEY Gonzalez Code Status: Attempt Resuscitation Condition at Discharge: Fair Discharge Disposition: 01 Home, Self Care - DIAGNOSES Discharge Diagnoses with Status of Each Condition: 1. Sepsis associated hypotension 2. Multifocal pneumonia 3. Hypoxia 4. Sedentary lifestyle 5. Acute renal insufficiency 6. History of congestive heart failure 7. Coronary artery disease 8. History of duodenal ulcer 9. Fibromyalgia 10. Morbid obesity 11. At risk for aspiration - HPI History of Present Illness: She is a 72-year-old female who is morbidly overweight weight and has been incr easingly sedentary for about 12 years. About 2 years ago she developed enough back pain and left leg sciatic pain that she prefers to be bedbound. She does go to physical therapy twice a week, goes out to a restaurant every other month, but basically stays at home. describes her as preferring to eat in bed. Semirecumbent position. The only reason he likes to take her out every other [facility] is to get her out of bed and to eat sitting upright. He checks her blood pressure, oxygen saturations, and circumference of her legs on a daily basis. On day of admission he noted that she had a possible left facial droop. Son lives with him and confirm that. He checked her blood pressure and it was very low. No antecedent history of chest pain, palpitations, cough, fever, shortness of breath. The last 2 times she has had a very low blood pressure was associated with cardiac arrest after an [place], and severe anemia from a GI bleed. So he brought her in thinking she may be having a stroke. She was found to have sepsis from multifocal pneumonia. - CONSULTS | PROCEDURES Procedures: Chest x-ray with mild congestion and mild pulmonary edema. Cannot rule out underlying infrahilar infiltrate. Head CT was without evidence of acute intracranial bleed, midline shift, or mass effect. Postsurgical changes seen in the bilateral temporal bones. Chest/thorax CT angiogram was without pulmonary embolus. But she had ill- defined airspace opacities scattered in the posterior medial aspect of bilateral lower lobes. Small infiltrates and atelectasis in the posterior aspect of the left upper lobe. Dependent atelectasis in the left upper lobe and middle lobe. No pleural effusions or pneumothorax. Mildly prominent mediastinal nodes seen. Abdomen/pelvis CT Done because of sepsis with unclear etiology and it showed an enlarged heart. No pericardial effusion. Patchy airspace opacities in the bilateral lower lungs. Liver and spleen were normal. Gallbladder normal. Biliary system normal. Pancreas normal. Bowel loops normal. No hernias. Blood cultures without growth after 2 days. Echocardiogram done to make sure there is no endocarditis in the face of sepsis and she had an ejection fraction of 55 to 60%. Regional wall motion ab normalities were seen. Those are diagrammed. Right ventricle normal. Left and right atria normal. RVSP 34 mmHg. Difficult to assess for vegetations. - HOSPITAL COURSE Hospital Course: She responded well to empiric antibiotics for community-acquired pneumonia. In discussing her lifestyle with her and her I think that she may have risk for aspiration. She eats in a semirecumbent position. This could give you multifocal pneumonia as well. But thankfully she does not have any air-fluid levels indicating aerobic pneumonia with abscess. Within 48 hours she felt like she was completely back to baseline. She loves to read books and the entire time she was here I think she went through 3 blocks. She has no respiratory distress. Is back to baseline with her limited mobility. As such she and her asked if she could go home. She would finish antibiotics at home. And I have given her Augmentin 500/125 p.o. twice daily. 5 more days. Probiotic for 5 more days. Reiterated not to take anything more than aspirin for nonsteroidal and to continue her Protonix indefinitely because of her history of severe peptic ulcer disease. She is discharged in stable condition. Temperature is 36.4. Heart rate 81. Blood pressure 164/77. Respirations 18. 92% on room air. She is a severely morbidly overweight weight female who looks her stated age. Comfortable in bed at about 40 degrees. She has a very, very quiet affect. Her does most of the talking for her. But she is not demented. She just prefers to say very little, and she feels that he speaks for her quite adequately. She is a retired [employer]. Neck is unable to be assessed for JVD because of increased girth but it is supple. No adenopathy. Lungs have diminished breath sounds at the bases and are otherwise clear. There is no Tachypnea, increased respiratory effort. PMI is nonpalpable. But she has a regular rate and rhythm. Abdomen is super obese, soft, nontender. Normal bowel sounds. Extremities have trace edema around ankles. She has very flat feet. Greater than 30 minutes was spent coordinating discharge. This document was made in part using voice recognition software. While efforts are made to proofread this document, sound alike and grammatical errors may occur. - ALLERGIES Allergies/Adverse Reactions: Allergies Allergy/AdvReac Type Severity Reaction Status Date / Time pentazocine [From Talwin] AdvReac Emesis Verified 12/27/22 11:22 propoxyphene [From Darvon] AdvReac Emesis Verified 12/27/22 11:22 - MEDICATIONS Home Medications: Ambulatory Orders Medication Instructions Recorded Confirmed Temazepam 30 mg PO HS 01/19/14 12/28/22 Atorvastatin Calcium 80 mg PO QPM 06/27/20 12/28/22 Carvedilol 12.5 mg PO BID 06/27/20 12/28/22 Furosemide 40 mg PO DAILY 06/27/20 12/28/22 Losartan Potassium 25 mg PO DAILY 06/27/20 12/28/22 Potassium Chloride 20 meq PO BID 06/27/20 12/28/22 Pregabalin [Lyrica] 150 mg PO DAILY 06/27/20 12/28/22 Topiramate 50 mg PO BID 06/27/20 12/28/22 Pregabalin [Lyrica] 300 mg PO QPM 06/28/20 12/28/22 Pantoprazole [Protonix] 40 mg PO BID #60 tablet 07/02/20 12/28/22 Aspirin [Aspirin EC] 81 mg PO DAILY 09/14/20 12/28/22 tiZANidine [Zanaflex] 8 mg PO QPM 09/14/20 12/28/22 Alprazolam [Xanax] 1 mg PO QPM 12/28/22 12/28/22 Calcium Carbonate [Calcium] 600 mg PO BID 12/28/22 12/28/22 Cholecalciferol (Vitamin D3) 125 mcg PO DAILY 12/28/22 12/28/22 [Vitamin D3 Max] tiZANidine [Zanaflex] 4 mg PO DAILY PRN 12/28/22 12/28/22 Amox/Clav 500/125 [Augmentin 1 tablet PO Q12H #10 tablet 12/29/22 500/125] Lactobacillus Acidophilus 1 each PO BID #12 tablet 12/29/22 [Probiotic Acidophilus] - LABS Result Diagrams: 12/29/22 05:38 12/29/22 05:38"
[2022-12-29] MEDS ORDERED: POTASSIUM CHLORIDE 20 MEQ TABLET PO SCH (17:00)
== END 2022-12-29 12:38 | disposition home or self-care (01) | DRG 871 ==
LOC: ED 11:08 → MS2 14:54
PROVIDERS: ADMIT Specialist; ATTEND Specialist
DX: J96.01 Acute respiratory failure with hypoxia (principal); J96.02 Acute respiratory failure with hypercapnia; A41.9 Sepsis, unspecified organism; G93.40 Encephalopathy, unspecified; R57.9 Shock, unspecified; D75.89 Other specified diseases of blood and blood-forming organs; Z20.822 Contact with and (suspected) exposure to COVID-19; J18.9 Pneumonia, unspecified organism; R65.21 Severe sepsis with septic shock; Z68.41 Body mass index [BMI] 40.0-44.9, adult; N28.9 Disorder of kidney and ureter, unspecified; K21.9 Gastro-esophageal reflux disease without esophagitis; R09.02 Hypoxemia; Z72.3 Lack of physical exercise; I25.10 Atherosclerotic heart disease of native coronary artery without angina pectoris; Z87.11 Personal history of peptic ulcer disease; M79.7 Fibromyalgia; E66.01 Morbid (severe) obesity due to excess calories; M54.9 Dorsalgia, unspecified; M54.32 Sciatica, left side; I25.2 Old myocardial infarction; Z95.5 Presence of coronary angioplasty implant and graft; F32.A Depression, unspecified; F41.9 Anxiety disorder, unspecified; G89.29 Other chronic pain; M54.16 Radiculopathy, lumbar region; F43.10 Post-traumatic stress disorder, unspecified; I50.9 Heart failure, unspecified; I95.89 Other hypotension
CPT/HCPCS: 36415; 70450; 71045; 71275; 74177; 80048; 80053; 81001; 82803; 83605; 83735; 84100; 84443; 84484; 85025; 85379; 85610; 87040; 87633; 93005; 93306; 96365; 97161; 99285; A9270; J1650; Q9967; 81003; 87086

== ENCOUNTER 2023-06-06 15:37 | Outpatient (CLI) | payer MEDICARE ==
--- NOTE | 2023-06-06 16:35 | XRAY Report ---
PROCEDURE: Chest 2 View X-Ray INDICATIONS: PNEUMONIA, BACTERIAL TECHNIQUE: 2 views of the chest were acquired. COMPARISON: CT angiogram chest 12/27/2022. FINDINGS: Surgical changes and devices: Surgical clips projecting over the left chest wall.. Lungs and pleura: No pleural effusions or pneumothorax. Lungs are clear. Mediastinum: Mediastinal contours appear normal. Heart size is normal. Bones and chest wall: No suspicious bony lesions. Overlying soft tissues appear unremarkable. IMPRESSION: No acute cardiopulmonary process. Reviewed by: Jona Owusu MD on 06/06/2023 4:33 PM PDT Approved by: Jona Owusu MD on 06/06/2023 4:33 PM PDT Station ID: [id number]
== END 2023-06-06 15:38 | disposition home or self-care (01) ==
LOC: DI 15:37
PROVIDERS: ATTEND Physician Assistant Medical
DX: J15.9 Unspecified bacterial pneumonia (principal)

== ENCOUNTER 2023-06-14 10:23 | Outpatient (CLI) | payer MEDICARE ==
[2023-06-14 16:06] LABS: ALBUMIN 4.4 g/dL (3.2-5.5); ALBUMIN/GLOBULIN RATIO 1.3 (1.0-2.2); ALKALINE PHOSPHATASE 60 IU/L (42-121); ALT ALANINE AMINOTRANSFERASE 27 IU/L (10-60); AST ASPARTATE AMINOTRANSFERASE 23 IU/L (10-42); BILIRUBIN,TOTAL 0.9 mg/dL (0.2-1.0); BUN - BLOOD UREA NITROGEN 14 mg/dL (6-20); CALCIUM 9.5 mg/dL (8.5-10.3); CARBON DIOXIDE - CO2 30 mmol/L (21-32); CHLORIDE 97 mmol/L (101-111); CHOL/HDL RATIO 2.4 (<4.4); CHOLESTEROL 139 mg/dL; GFR - MDRD 54 (>89); GLUCOSE 137 mg/dL (74-104); HDL CHOLESTEROL 57 mg/dL; LDL CHOLESTEROL,CALCULATED 53 mg/dL; LDL/HDL RATIO 0.9 (<4.4); POTASSIUM 3.9 mmol/L (3.5-4.5); SODIUM 135 mmol/L (135-145); TOTAL PROTEIN 7.8 g/dL (6.4-8.9); TRIGLYCERIDES 144 mg/dL (48-352); VLDL CHOLESTEROL 29 mg/dL
[2023-06-14 20:35] LABS: ESTIMATED AVERAGE GLUCOSE 146 mg/dL (70-100); HEMOGLOBIN A1c% 6.7 % (4.27-6.07)
== END 2023-06-14 10:24 | disposition home or self-care (01) ==
LOC: LAB.S 10:23
PROVIDERS: ATTEND Physician Assistant Medical
DX: E78.5 Hyperlipidemia, unspecified (principal); R73.9 Hyperglycemia, unspecified
CPT/HCPCS: 36415; 80053; 80061; 83036; 83721

== ENCOUNTER 2023-10-05 11:39 | Outpatient (CLI) | payer MEDICARE ==
[2023-10-05 15:24] LABS: CALCIUM 9.8 mg/dL (8.5-10.3); CREATININE 1.2 mg/dL (0.6-1.3); POTASSIUM 4.1 mmol/L (3.5-4.5)
[2023-10-05 17:25] LABS: ESTIMATED AVERAGE GLUCOSE 154 mg/dL (70-100)
== END 2023-10-05 11:40 | disposition home or self-care (01) ==
LOC: LAB.S 11:39
PROVIDERS: ATTEND Physician Assistant Medical
DX: E11.9 Type 2 diabetes mellitus without complications (principal)
CPT/HCPCS: 36415; 80048; 83036